=== PATIENT | female | born 1935 | race Asian ===

== ENCOUNTER 2018-10-12 16:38 | Inpatient (IN) | payer BC ==
[~2018-10-12] VITALS: Ht 157.5 cm; Wt 69.2 kg
[2018-10-12] MEDS ORDERED: IPRATROPIUM (NEB) 0.5 MG/2.5 ML AMP INH STA (19:09)
[2018-10-12] MEDS ORDERED: predniSONE 20 MG TAB PO STA (19:09)
[2018-10-12] MEDS ORDERED: ALBUTEROL 0.5% (NEB) 2.5 MG/0.5 ML AMP INH STA (19:09)
--- NOTE | 2018-10-12 19:56 | ERD ---
ER Documentation Chief Complaint Chief Complaint Cough X 1 month HPI 82-year-old female presents to the emergency room complaining of cough for approximately 1 month. We are using an automotive parts interpreter with family and nursing. Patient describes occasional shortness of breath and cough that is usually worse at night. No fevers chills or hemoptysis or hematemesis. Patient was found to have new onset atrial fibrillation with rate control. This is a new diagnosis for her. She denies any chest pain or pressure, no pleuritic pain. ROS All systems reviewed and are negative except as per history of present illness. Allergies Allergies: Coded Allergies: lisinopril (Verified Allergy, Unknown, 10/12/18) PMhx/Soc Medical and Surgical Hx: pt denies Medical Hx, pt denies Surgical Hx Hx Alcohol Use: No Hx Substance Use: No Hx Tobacco Use: No Smoking Status: Never smoker FmHx Family History: No diabetes Physical Exam Vitals Vital Signs Date Temp Pulse Resp B/P (MAP) Pulse Ox O2 O2 Flow FiO2 Time Delivery Rate 10/12/18 70 20 95 21 19:33 10/12/18 99.4 63 18 119/56 96 16:46 (77) Physical Exam General: Well developed, well nourished, no acute distress Head: Normocephalic, atraumatic. Eyes: Pupils equally reactive, EOM intact ENT: Moist mucous membranes Neck: Supple, no lymphadenopathy Respiratory: Scant wheezing, no distress Cardiovascular: irreg irreg, rate controlled, no murmurs, rubs, or gallops Abdominal: Soft, non-tender, non-distended, no peritoneal signs : Deferred MSK: No edema, no unilateral swelling, 5/5 strength Neurologic: Alert and oriented, moving all extremities, normal speech, no focal weakness, no cerebellar signs Skin: No rash Psych: Normal mood Result Diagram: 10/12/18195310/12/181953 Results 24 hrs Laboratory Tests Test 10/12/18 19:54 10/12/18 19:57 White Blood Count 5.2 10^3/ul Red Blood Count 4.72 10^6/ul Hemoglobin 14.4 g/dl Hematocrit 44.2 % Mean Corpuscular Volume 93.6 fl Mean Corpuscular Hemoglobin 30.5 pg Mean Corpuscular Hemoglobin Concent 32.6 g/dl Red Cell Distribution Width 14.4 % Platelet Count 199 10^3/UL Mean Platelet Volume 11.1 fl Immature Granulocytes % 0.200 % Segmented Neutrophils % (Manual) 70 % Band Neutrophils % (Manual) 1 % Lymphocytes % (Manual) 12 % Reactive Lymphocytes % (Manual) 3 % Monocytes % (Manual) 12 % Eosinophils % (Manual) 1 % Metamyelocytes % (manual) 1 % Nucleated Red Blood Cells % 0.0 /100WBC Immature Granulocytes # 0.010 10^3/ul Neutrophils # (Manual) 3.6 10^3/ul Band Neutrophils # 0.0 10^3/ul Lymphocytes (Manual) 0.6 10^3/ul Reactive Lymphocytes # 0.1 10^3/ul Monocytes # (Manual) 0.6 10^3/ul Metamyelocytes # 0.0 10^3/ul Platelet Estimate NORMAL Polychromasia 1+ Poikilocytosis 1+ Sodium Level 141 mmol/L Potassium Level 3.8 mmol/L Chloride Level 103 mmol/L Carbon Dioxide Level 28 mmol/L Anion Gap 10 Blood Urea Nitrogen 11 mg/dl Creatinine 0.62 mg/dl Est Glomerular Filtrat Rate mL/min mL/min Glucose Level 96 mg/dl Calcium Level 9.7 mg/dl Troponin I < 0.012 ng/ml Prothrombin Time 13.8 Sec Prothrombin Time Ratio 1.1 INR International Normalized Ratio 1.05 Activated Partial Thromboplast Time 33.5 Sec B-Type Natriuretic Peptide 727 PG/ML Thyroid Stimulating Hormone (TSH) 2.140 MIU/L Free Thyroxine Index 2.79 ug/ml Thyroxine (T4) 10.0 ug/dl Triiodothyronine (T3) Uptake 27.9 % Current Medications Medications Dose Sig/Shivam Start Time Status Last (Trade) Ordered Route PRN Stop Time Admin Dose Reason Admin Albuterol 10 mg ONCE STAT 10/12/18 DC 10/12/18 (Proventil INH 19:09 19:33 0.5% (Neb)) 10/12/18 19:13 Ipratropium 1 mg ONCE STAT 10/12/18 DC 10/12/18 [place] INH 19:09 19:33 (Atrovent 10/12/18 19:13 0.02% (Neb)) Prednisone 60 mg ONCE STAT 10/12/18 DC 10/12/18 (Prednisone) PO 19: 19:25 3/12/19 19:13 Ondansetron 4 mg ER BRIDGE 10/12/18 HCl (Zofran PRN IV 21:00 Inj) NAUSEA/VOMITI 10/13/18 20:59 NG 650 mg ER BRIDGE 10/12/18 Acetaminophen PRN PO 21:00 (Tylenol .MILD PAIN 10/13/18 20:59 Tab) 1-3 OR TEMP Procedures/MDM EKG, MONITORS, & DIAGNOSTIC IMAGING: EKG: I reviewed and interpreted a 12-lead EKG. Rhythm: A fib rate controlled ST Changes: No contiguous ST segment elevations T waves: No contiguous T wave inversions Impression: Abnormal EKG CXR IMPRESSION: 1. Small right pleural effusion. 2. Cardiomegaly and atherosclerotic calcifications in the tortuous thoracic aorta. 3. Medial right apical bronchiectasis. 4. Mild atelectasis at the left lung base. 5. Otherwise, no evidence for active cardiopulmonary disease. RPTAT: UU LAB INTERPRETATION: I reviewed the laboratory testing and it shows mild BNP elevation but negative troponin, normal thyroid MEDICAL DECISION MAKING: Patient presents with cough for approximately 1 month with new onset A. fib. Rate controlled. The patient is high risk and warrants further conversation about anticoagulation. Further investigation for etiology is appropriate including laboratory testing, cardiac ischemia screening. Inpatient hospitalization for further workup, echocardiogram and cardiology consultation would be appropriate. ER COURSE: * The patient remains rate controlled. Influenza testing negative. The patient will be admitted for further management of new onset A. fib. * No evidence of infectious process at this time CONSULTATION: [None] DISPOSITION PLAN: Telemetry admission for management of new onset A. fib Accepting care team and consultations: I discussed the current laboratory data, diagnostic imaging and emergency care provided. Admitting team: Dr. Mckeon Admitting team indication: Insurance directed Departure Diagnosis: Primary Impression: New onset atrial fibrillation Condition: Stable ROXIE MALAVE MD Oct 12, 2018 19:56
[2018-10-12] MEDS ORDERED: ACETAMINOPHEN 325 MG TAB PO PRN (21:00)
[2018-10-12] MEDS ORDERED: ONDANSETRON 4 MG INJ IV PRN (21:00)
[2018-10-13] VITALS (11 sets, daily range): BP systolic 107–134; BP diastolic 56–82; PULSE 60–94; RESP 16–22; Ht 157.5 cm; Wt 69.2 kg
[2018-10-13] MEDS ORDERED: FLUT1BLS INHALATION (00:11)
[2018-10-13] MEDS ORDERED: ALBU2.5V3 NEB (00:11)
[2018-10-13] MEDS ORDERED: LOSA25TA12 PO (00:11)
[2018-10-13] MEDS ORDERED: APIX5TAB PO (00:11)
[2018-10-13] MEDS ORDERED: FURO20TA3 PO (00:11)
[2018-10-13] MEDS ORDERED: DILT180C76 PO (00:11)
[2018-10-13] MEDS ORDERED: ALBU18HF INHALATION (00:11)
[2018-10-13] MEDS ORDERED: ATOR40TA68 PO (00:11)
[2018-10-13] MEDS ORDERED: ASCO500C7 PO (00:13)
[2018-10-13] MEDS ORDERED: MULT-853 PO (00:13)
[2018-10-13] MEDS ORDERED: OMEG-135 PO (00:13)
[2018-10-13] MEDS ORDERED: ALBUTEROL/IPRATROPIUM (NEB) 3 ML AMP HHN PRN (01:30)
[2018-10-13] MEDS ORDERED: NACL 0.9% 3 ML SYG IV SCH (01:30)
[2018-10-13] MEDS ORDERED: ACETAMINOPHEN 325 MG TAB PO PRN (01:30)
[2018-10-13] MEDS ORDERED: ONDANSETRON 4 MG INJ IV PRN (01:30)
[2018-10-13] MEDS ORDERED: ZOLPIDEM 5 MG TAB PO PRN (02:00)
[2018-10-13] MEDS: APIXABAN 5 MG TABLET PO SCH ×3 (02:23→21:34)
--- NOTE | 2018-10-13 06:08 | HP ---
Date/Time of Note Date/Time of Note DATE: 10/13/18 TIME: 06:04 Assessment/Plan VTE Prophylaxis Pharmacological prophylaxis: heparin Lines/Catheters IV Catheter Type (from Nrsg): Saline Lock Assessment/Plan Assessment/Plan 1. Shortness of breath and cough, likely secondary to the known pulmonary fibrosis -Supplemental oxygen, bronchodilators, steroid -Chest CT -Pulmonary consult 2. Atrial fibrillation: Rate controlled -Continue diltiazem and apixaban 3. Hypertension: BP within goal 4. History of CVA: Continue statin. Patient on a blood thinner, therefore no antiplatelet because of increased risk of bleeding 5. Dyslipidemia: Continue statin Result Diagram: 10/12/18195310/12/181953 Results 24hrs Laboratory Tests Test 10/12/18 19:54 10/12/18 19:57 White Blood Count 5.2 Red Blood Count 4.72 Hemoglobin 14.4 Hematocrit 44.2 Mean Corpuscular Volume 93.6 Mean Corpuscular Hemoglobin 30.5 Mean Corpuscular Hemoglobin Concent 32.6 Red Cell Distribution Width 14.4 Platelet Count 199 Mean Platelet Volume 11.1 H Immature Granulocytes % 0.200 Segmented Neutrophils % (Manual) 70 Band Neutrophils % (Manual) 1 Lymphocytes % (Manual) 12 L Reactive Lymphocytes % (Manual) 3 H Monocytes % (Manual) 12 H Eosinophils % (Manual) 1 Metamyelocytes % (manual) 1 H Nucleated Red Blood Cells % 0.0 Immature Granulocytes # 0.010 Neutrophils # (Manual) 3.6 Band Neutrophils # 0.0 Lymphocytes (Manual) 0.6 L Reactive Lymphocytes # 0.1 H Monocytes # (Manual) 0.6 Metamyelocytes # 0.0 Platelet Estimate NORMAL Polychromasia 1+ Poikilocytosis 1+ Sodium Level 141 Potassium Level 3.8 Chloride Level 103 Carbon Dioxide Level 28 Anion Gap 10 Blood Urea Nitrogen 11 Creatinine 0.62 Est Glomerular Filtrat Rate mL/min Glucose Level 96 Calcium Level 9.7 Troponin I < 0.012 Prothrombin Time 13.8 Prothrombin Time Ratio 1.1 INR International Normalized Ratio 1.05 Activated Partial Thromboplast Time 33.5 B-Type Natriuretic Peptide 727 H Thyroid Stimulating Hormone (TSH) 2.140 Free Thyroxine Index 2.79 Thyroxine (T4) 10.0 Triiodothyronine (T3) Uptake 27.9 HPI/ROS Admit Date/Time Admit Date/Time Oct 12, 2018 at 20:52 Hx of Present Illness This is an 82-year-old female with a history of hypertension, dyslipidemia, CVA, atrial fibrillation, ?pulmonary fibrosis who was brought to the ER for shortness of breath and cough. Symptom has intermittently been going on for the last several weeks. Cough has been dry. Denied chest pain. Patient was taken to the urgent care where chest x-ray was done and was told she has " fluids in her lungs". When she presented to ER, vitals were stable. No history of atrial fibrillation. Basic labs was in acceptable range. BNP around 700. Chest x-ray shows the following. 1. Small right pleural effusion. 2. Cardiomegaly and atherosclerotic calcifications in the tortuous thoracic aorta. 3. Medial right apical bronchiectasis. 4. Mild atelectasis at the left lung base. 5. Otherwise, no evidence for active cardiopulmonary disease. PMH/Family/Social Past Medical History Medical History: other (See HPI) Medications Current Medications Ondansetron HCl (Zofran Inj) 4 mg ER BRIDGE PRN IV NAUSEA/VOMITING; Start 10/12/18 at 21:00; Stop 10/13/18 at 20:59 Acetaminophen (Tylenol Tab) 650 mg ER BRIDGE PRN PO .MILD PAIN 1-3 OR TEMP; Start 10/12/18 at 21:00; Stop 10/13/18 at 20:59 IV Flush (NS 3 ml) 3 ml PER PROTOCOL IV ; Start 10/13/18 at 01:30 Ondansetron HCl (Zofran Inj) 4 mg Q6H PRN IV NAUSEA/VOMITING; Start 10/13/18 at 01:30 Methylprednisolone Sodium Succinate (Solu-Medrol) 60 mg DAILY IV ; Start 10/13/18 at 09:00 Acetaminophen (Tylenol Tab) 650 mg Q6H PRN PO .PAIN 1-3 OR TEMP; Start 10/13/18 at 01:30 Albuterol/ Ipratropium (Duoneb) 3 ml Q2H RESP THERAPY PRN HHN SHORTNESS OF BREATH; Start 10/13/18 at 01:30 Apixaban (Eliquis) 5 mg BID PO Last administered on 10/13/18at 02:23; Admin Dose 5 MG; Start 10/13/18 at 02:16 Ascorbic Acid (Vitamin C) 500 mg DAILY PO ; Start 10/13/18 at 09:00 Atorvastatin Calcium (Lipitor) 40 mg DAILY PO ; Start 10/13/18 at 09:00 Fluticasone/ Vilanterol (Breo Ellipta 200-25 Mcg Inh) 1 inh DAILY INH ; Start 10/13/18 at 09:00 Furosemide (Lasix) 20 mg DAILY PO ; Start 10/13/18 at 09:00 Losartan Potassium (Cozaar) 100 mg DAILY PO ; Start 10/13/18 at 09:00 Diltiazem HCl (Cardizem Cd) 180 mg DAILY PO ; Start 10/13/18 at 09:00 Coded Allergies: lisinopril (Verified Allergy, Unknown, 10/12/18) Past Surgical History Past Surgical Hx: other (See HPI) Family History Significant Family History: no pertinent family hx Social History Alcohol Use: none Smoking Status: Never smoker Drug Use: none Exam/Review of Systems Vital Signs Vitals Vital Signs Date Temp Pulse Resp B/P (MAP) Pulse Ox O2 O2 Flow FiO2 Time Delivery Rate 10/13/18 98.0 83 16 111/62 98 Room Air 04:14 (78) 10/12/18 21 19:33 Intake and Output 10/12/18 10/12/18 10/13/18 1414:59 22:59 06:59 IntakeIntake Total 200 ml BalanceBalance 200 ml Exam Constitutional: other (No acute distress) Head: normocephalic, atraumatic Eyes: PERRL Respiratory: other (Decreased breath sounds at the base bilaterally. Minimal wheezing) Cardiovascular: regular rate and rhythm, nl pulses Gastrointestinal: soft Extremities: normal pulses BIBIANA MARTINEZ MD Oct 13, 2018 06:08
[2018-10-13] MEDS: ATORVASTATIN 40 MG TAB PO SCH (08:10)
[2018-10-13] MEDS: FLUTICASONE/VILANTEROL 200-25 INH DEVICE INH SCH (08:10)
[2018-10-13] MEDS: ASCORBIC ACID 500 MG TAB PO SCH (08:11)
[2018-10-13] MEDS: DILTIAZEM (CD) 180 MG CAP PO SCH (08:11)
[2018-10-13] MEDS: LOSARTAN 50 MG TAB PO SCH (08:11)
[2018-10-13] MEDS: FUROSEMIDE 20 MG TAB PO SCH (08:11)
[2018-10-13] MEDS ORDERED: METHYLPREDNISOLONE 125 MG INJ IV SCH ×2 (09:00→17:00)
[2018-10-13] MEDS ORDERED: HEPARIN 5,000 UNIT/1 ML VIAL SC SCH (09:00)
--- NOTE | 2018-10-13 11:05 | CONS ---
Assessment/Plan Assessment/Plan Assessment/Plan (Daily) Chest x-ray showing right upper lobe fibrotic changes. Assessment recommendations; 1. Patient admitted with flareup of chronic asthma with acute bronchitis likely dust exposure induced. 2. Remote history of pulmonary tuberculosis without any evidence of reactivation. 3. Chronic atrial fibrillation. Discontinue Solu-Medrol at current dosing. Start 40 mg every 8 hours. Add oral Zithromax to be used as a Z-Kurtis. Changed DuoNeb from as needed to every 6 hours scheduled. Continue as needed dosing every 4 hours. Consultation Date/Type/Reason Admit Date/Time Oct 12, 2018 at 20:52 Date of Consultation: Oct 13, 2018 Type of Consult Pulmonary Pulmonary consult requested for evaluation of asthma exacerbation with alma delia robert. The patient is a pleasant 82-year-old [place] lady who came into the hospital with a month long history of coughing wheezing shortness of breath with very scant sputum production. The patient went to [facility] in late August and returned in mid September and according to the patient's daughter she had significant dust exposure there which triggered her coughing episodes the patient has had several rounds of outpatient antibiotic treatment without much long lasting benefit. Patient also has been on home nebulizer without any significant relief either. Patient however denies any fever, chest pain, hemoptysis, denies any sputum production. Complains of episodes of severe coughing with wheezing. Denies any shortness of breath at rest. By the time I saw her in the room, patient appe ared comfortable and was completely awake and alert. Also possible to give history by herself. Past medical history; 1. History of questionable asthma. 2. History of pulmonary tuberculosis at age 27. Status post treatment. 3. History of chronic atrial fibrillation. 4. Long-term anticoagulation. Medications; reviewed. Allergies; lisinopril. Social history; never smoked, no history of alcohol drug abuse. Family history; she is a . Has 2 children. 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 Review of systems; denies any headache, sinus symptoms. Any visual changes. Any sore throat. Denies any chest pain. Complains of coughing, wheezing, without any sputum production or hemoptysis. Denies any fever, chills. Any body aches or myalgias. Any weight loss. Denies any GI or urinary symptoms. Denies any edema orthopnea. Any skin changes. Any weight loss. Any night sweats. General exam; elderly lady, awake alert, currently in no distress. Date/Time of Note DATE: 10/13/18 TIME: 11:01 Past Medical History Medical History: other (See HPI) Home Meds Reported Medications Ascorbic Acid* (Vitamin C*) 500 Mg Capsule.sa, 500 MG PO DAILY, CAP 10/13/18 Multivits-Min/Iron/FA/Lutein (Centrum Silver Women Tablet) 1 Each Tablet, 1 EACH PO DAILY, TAB 10/13/18 [place]-3 Fatty Acids/Fish Oil (Fish Oil 1,000 mg Capsule) 1 Each Capsule, 1 EACH PO, CAP 10/13/18 Albuterol Sulfate* (Albuterol Sulfate* Neb) 0.083%-3 Ml Neb, 1.25 MG NEB Q3H PRN for WHEEZING AND SOB, #30 VIAL 10/13/18 Fluticasone/Vilanterol (Breo Ellipta 200-25 Mcg INH) 1 Each Blst.w.dev, 1 PUFF INHALATION DAILY, #1 INHALER 10/13/18 Apixaban* (Eliquis*) 5 Mg Tablet, 5 MG PO BID for 30 Days, #60 TAKE 1 TABLET BY MOUTH TWICE A DAY 10/13/18 Atorvastatin* (Atorvastatin*) 40 Mg Tablet, 40 MG PO DAILY for 30 Days, #30 TAKE 1 TABLET BY MOUTH EVERY DAY 10/13/18 Losartan Potassium* (Losartan Potassium*) 25 Mg Tablet, 100 MG PO DAILY for 30 Days, #30 TAKE 1 TABLET BY MOUTH EVERY DAY 10/13/18 Furosemide* (Furosemide*) 20 Mg Tablet, 20 MG PO DAILY for 30 Days, #30 10/13/18 Diltiazem Hcl (Diltiazem Er) 180 Mg Capsule.sa, 180 MG PO DAILY TAKE ONE CAPSULE BY MOUTH DAILY 10/13/18 Albuterol Sulfate* (Ventolin HFA*) 18 Gm Hfa.aer.ad, 2 PUFF INHALATION Q4H, #1 INHALER 10/13/18 Medications Current Medications Ondansetron HCl (Zofran Inj) 4 mg ER BRIDGE PRN IV NAUSEA/VOMITING; Start 10/12/18 at 21:00; Stop 10/13/18 at 20:59 Acetaminophen (Tylenol Tab) 650 mg ER BRIDGE PRN PO .MILD PAIN 1-3 OR TEMP; Start 10/12/18 at 21:00; Stop 10/13/18 at 20:59 IV Flush (NS 3 ml) 3 ml PER PROTOCOL IV ; Start 10/13/18 at 01:30 Ondansetron HCl (Zofran Inj) 4 mg Q6H PRN IV NAUSEA/VOMITING; Start 10/13/18 at 01:30 Acetaminophen (Tylenol Tab) 650 mg Q6H PRN PO .PAIN 1-3 OR TEMP; Start 10/13/18 at 01:30 Albuterol/ Ipratropium (Duoneb) 3 ml Q2H RESP THERAPY PRN HHN SHORTNESS OF BREATH; Start 10/13/18 at 01:30 Apixaban (Eliquis) 5 mg BID PO Last administered on 10/13/18at 10:40; Admin Dose 5 MG; Start 10/13/18 at 02:16 Ascorbic Acid (Vitamin C) 500 mg DAILY PO Last administered on 10/13/18 08:11; Admin Dose 500 MG; Start 10/13/18 at 09:00 Atorvastatin Calcium (Lipitor) 40 mg DAILY PO Last administered on 10/13/18 08:10; Admin Dose 40 MG; Start 10/13/18 at 09:00 Fluticasone/ Vilanterol (Breo Ellipta 200-25 Mcg Inh) 1 inh DAILY INH Last administered on 10/13/18 08:10; Admin Dose 1 INH; Start 10/13/18 at 09:00 Furosemide (Lasix) 20 mg DAILY PO Last administered on 10/13/18 08:11; Admin Dose 20 MG; Start 10/13/18 at 09:00 Losartan Potassium (Cozaar) 100 mg DAILY PO Last administered on 10/13/18 08:11; Admin Dose 100 MG; Start 10/13/18 at 09:00 Diltiazem HCl (Cardizem Cd) 180 mg DAILY PO Last administered on 10/13/18 08:11; Admin Dose 180 MG; Start 10/13/18 at 09:00 Albuterol/ Ipratropium (Duoneb) 3 ml Q4HWA RESP THERAPY HHN ; Start 10/13/18 at 13:00; Status UNV Albuterol/ Ipratropium (Duoneb) 3 ml Q6H RESP THERAPY HHN ; Start 10/13/18 at 14:00; Status UNV Methylprednisolone Sodium Succinate (Solu-Medrol) 40 mg Q8 IV ; Start 10/13/18 at 14:00; Status UNV Allergies: Coded Allergies: lisinopril (Verified Allergy, Unknown, 10/12/18) Past Surgical History Past Surgical Hx: other (See HPI) Social History Alcohol Use: none Smoking Status: Never smoker Drug Use: none Exam/Review of Systems Exam Vitals Vital Signs Date Temp Pulse Resp B/P (MAP) Pulse Ox O2 O2 Flow FiO2 Time Delivery Rate 10/13/18 94 08:01 10/13/18 97.0 22 134/82 96 Room Air 07:23 (99) 10/12/18 21 19:33 Intake and Output 10/12/18 10/12/18 10/13/18 1515:00 23:00 07:00 IntakeIntake Total 200 ml BalanceBalance 200 ml Exam HEENT exam; supple neck, no JVD. No lymphadenopathy. Midline trachea. No thyromegaly. Patient has dentures. Chest exam; mild bilateral wheezing. S1-S2 audible, no murmurs. Irregular rhythm. Abdomen exam; soft, nontender. No organomegaly. Bowel sounds audible. Extremity exam; peripheral edema clubbing. PEC[employer] CLE[employer]ER exam; no focal deficit. Results Result Diagram: 10/13/18 0507 10/13/18 0507 Results 24hrs Laboratory Tests Test 10/12/18 19:54 10/12/18 19:57 10/13/18 05:07 White Blood Count 5.2 4.1 #L Red Blood Count 4.72 4.55 Hemoglobin 14.4 13.8 Hematocrit 44.2 42.6 Mean Corpuscular Volume 93.6 93.6 Mean Corpuscular Hemoglobin 30.5 30.3 Mean Corpuscular Hemoglobin Concent 32.6 32.4 Red Cell Distribution Width 14.4 14.3 Platelet Count 199 196 Mean Platelet Volume 11.1 H 11.4 H Immature Granulocytes % 0.200 0.200 Segmented Neutrophils % (Manual) 70 Band Neutrophils % (Manual) 1 Lymphocytes % (Manual) 12 L Reactive Lymphocytes % (Manual) 3 H Monocytes % (Manual) 12 H Eosinophils % (Manual) 1 Metamyelocytes % (manual) 1 H Nucleated Red Blood Cells % 0.0 0.0 Immature Granulocytes # 0.010 0.010 Neutrophils # (Manual) 3.6 Band Neutrophils # 0.0 Lymphocytes (Manual) 0.6 L Reactive Lymphocytes # 0.1 H Monocytes # (Manual) 0.6 Metamyelocytes # 0.0 Platelet Estimate NORMAL Polychromasia 1+ Poikilocytosis 1+ Sodium Level 141 142 Potassium Level 3.8 4.1 Chloride Level 103 106 Carbon Dioxide Level 28 26 Anion Gap 10 10 Blood Urea Nitrogen 11 12 Creatinine 0.62 0.60 Est Glomerular Filtrat Rate mL/min Glucose Level 96 115 Calcium Level 9.7 9.8 Troponin I < 0.012 Prothrombin Time 13.8 Prothrombin Time Ratio 1.1 INR International Normalized Ratio 1.05 Activated Partial Thromboplast Time 33.5 B-Type Natriuretic Peptide 727 H Thyroid Stimulating Hormone (TSH) 2.140 Free Thyroxine Index 2.79 Thyroxine (T4) 10.0 Triiodothyronine (T3) Uptake 27.9 Neutrophils % 90.8 H Lymphocytes % 7.1 L Monocytes % 1.7 Eosinophils % 0.0 Basophils % 0.2 Neutrophils # 3.7 Lymphocytes # 0.3 L Monocytes # 0.1 L Eosinophils # 0.0 Basophils # 0.0 Nucleated Red Blood Cells # 0.0 Total Bilirubin 0.9 Direct Bilirubin 0.00 Indirect Bilirubin 0.9 Aspartate Amino Transf (AST/SGOT) 25 Alanine Aminotransferase (ALT/SGPT) 20 Alkaline Phosphatase 100 Total Protein 6.8 Albumin 4.0 Globulin 2.80 Albumin/Globulin Ratio 1.42 Medications Medication Current Medications Ondansetron HCl (Zofran Inj) 4 mg ER BRIDGE PRN IV NAUSEA/VOMITING; Start 10/12/18 at 21:00; Stop 10/13/18 at 20:59 Acetaminophen (Tylenol Tab) 650 mg ER BRIDGE PRN PO .MILD PAIN 1-3 OR TEMP; Start 10/12/18 at 21:00; Stop 10/13/18 at 20:59 IV Flush (NS 3 ml) 3 ml PER PROTOCOL IV ; Start 10/13/18 at 01:30 Ondansetron HCl (Zofran Inj) 4 mg Q6H PRN IV NAUSEA/VOMITING; Start 10/13/18 at 01:30 Acetaminophen (Tylenol Tab) 650 mg Q6H PRN PO .PAIN 1-3 OR TEMP; Start 10/13/18 at 01:30 Albuterol/ Ipratropium (Duoneb) 3 ml Q2H RESP THERAPY PRN HHN SHORTNESS OF BREATH; Start 10/13/18 at 01:30 Apixaban (Eliquis) 5 mg BID PO Last administered on 10/13/18 10:40; Admin Dose 5 MG; Start 10/13/18 at 02:16 Ascorbic Acid (Vitamin C) 500 mg DAILY PO Last administered on 10/13/18 08:11; Admin Dose 500 MG; Start 10/13/18 at 09:00 Atorvastatin Calcium (Lipitor) 40 mg DAILY PO Last administered on 10/13/18 08:10; Admin Dose 40 MG; Start 10/13/18 at 09:00 Fluticasone/ Vilanterol (Breo Ellipta 200-25 Mcg Inh) 1 inh DAILY INH Last administered on 10/13/18 08:10; Admin Dose 1 INH; Start 10/13/18 at 09:00 Furosemide (Lasix) 20 mg DAILY PO Last administered on 10/13/18 08:11; Admin Dose 20 MG; Start 10/13/18 at 09:00 Losartan Potassium (Cozaar) 100 mg DAILY PO Last administered on 10/13/18 08:11; Admin Dose 100 MG; Start 10/13/18 at 09:00 Diltiazem HCl (Cardizem Cd) 180 mg DAILY PO Last administered on 10/13/18 08:11; Admin Dose 180 MG; Start 10/13/18 at 09:00 Albuterol/ Ipratropium (Duoneb) 3 ml Q4HWA RESP THERAPY HHN ; Start 10/13/18 at 13:00; Status UNV Albuterol/ Ipratropium (Duoneb) 3 ml Q6H RESP THERAPY HHN ; Start 10/13/18 at 14:00; Status UNV Methylprednisolone Sodium Succinate (Solu-Medrol) 40 mg Q8 IV ; Start 10/13/18 at 14:00; Status UNV RAJINDER RUTHERFORD Oct 13, 2018 11:05
--- NOTE | 2018-10-13 11:19 | PN ---
DATE: 10/13/2018 SUBJECTIVE: The patient is still having some mild shortness of breath symptoms, seen by pulmonary te am earlier today. OBJECTIVE: VITAL SIGNS: Stable. GENERAL: The patient is lying in bed, family members at the bedside. No acute distress. HEENT: Pupils equal, round, reactive to light, somewhat intact. NECK: Supple, no thyromegaly. LUNGS: Positive expiratory wheezes heard, left greater than right. CARDIOVASCULAR: S1, S2 heard. No rubs or gallops. ABDOMEN: Soft, nontender, nondistended. Normal bowel sounds. No rebound or guarding. MUSCULOSKELETAL: No lower extremity edema bilaterally. NEUROLOGIC: No focal deficits. LABORATORY DATA: Unremarkable. Comprehensive metabolic panel is normal. BNP is 727. IMAGING STUDIES: Chest x-ray showed small right pleural effusion, cardiomegaly and atherosclerotic c alcifications and tortuous thoracic aorta, medial right apical bronchiectasis, mild atelectasis at le ft lung base, otherwise no evidence of any active cardiopulmonary disease. ASSESSMENT AND PLAN: An 82-year-old female coming in with shortness of breath and cough with a prior history of TB many years ago and pulmonary fibrosis. Subsequently, nonsmoking related COPD per fami ly. 1. Shortness of breath and cough. Again, the patient is likely secondary to combination of mild CHILD NURSE D exacerbation, also possible secondary to the patient's possible history of pulmonary fibrosis. Exp iratory wheezes are heard on the exam. The patient Is to continue breathing treatments to q.4h. arou nd the clock, IV steroids, we will increase to 60 mg IV q.8h. Follow up pulmonary recommendations. Consider low-dose antibiotics as well, DuoNeb q.4 hours around the clock for now. Consider PT consul t. 2. Atrial fibrillation, rate controlled. Continue diltiazem and apixaban. 3. Hypertension. Blood pressure is stable. Continue current cardiac medications. 4. History of prior stroke. No present signs of any focal deficits. Continue statin. Also, we zabrina l get PT consult. 5. History of high cholesterol, followup lipid panel. Continue statin. 6. Deep vein thrombosis prophylaxis. Again, she is on Eliquis. Dictated By: IKMMIE OMALLEY Conf#: [id number] DID#: [id number] CC: KIMMIE JOHNSON; RUMA MEEHAN MD; BIBIANA MARTINEZ MD;*End*
--- NOTE | 2018-10-13 12:32 | CONS ---
Assessment/Plan Assessment/Plan Assessment/Plan (Daily) Shortness of breath secondary to acute exacerbation of pulmonary fibrosis. Patient is very stable at this time with receiving oxygen and pulmonary toilet and HHN. History of atrial fibrillation controlled Hypertension prior history of CVA She is doing well Overall prognosis is guarded secondary to pulmonary fibrosis as far as I can gather release her second episode of exacerbation of pulmonary fibrosis within the last couple of months. As well as past medical history of pulmonary emboli. Consultation Date/Type/Reason Admit Date/Time Oct 12, 2018 at 20:52 Date/Time of Note DATE: 10/13/18 TIME: 12:29 This is a 82-year-old female who presented to [facility] with increasing shortness of breath. Patient looks younger than her stated age apparently has history of pulmonary fibrosis was brought in for increasing shor tness of breath for a few days prior to his presentation. States she has cough but no purulent sputum denies chest pain PND orthopnea pitting edema. She was initially evaluated at an outside facility and told that she needed to come to the emergency room.. Here she was small have a small right-sided pleural effusion cardiomegaly right apical bronchiectasis, mild atelectasis of the left lung base but otherwise no evidence of cardiopulmonary disease. Right now patient is very stable but denies chest pain shortness of breath she is able to speak in comorbid medical problems in the past include history of hypertension dyslipidemia CVA atrial fibrillation. Subjective hx not possible: pt non-verbal Constitutional: No no complaints, No improved, No chills, No diaphoresis, No disoriented, No febrile, No poor po, No requiring IVF, No requiring O2, No other Eyes: No no complaints, No pain, No discharge, No redness, No visual change, No other Respiratory: other (Refer to history of present illness) Cardiovascular: No no complaints, No chest pain, No edema, No lightheadedness, No orthopenea, No palpitations, No paroxysmal nocturnal dyspnea, No other Gastrointestinal: No no complaints, No pain, No blood, No constipation, No decreased appetite, No diarrhea, No flatus, No nausea, No passing stool, No vomiting, No other Neurologic: no complaints Endocrine: no complaints Lymphatic: no complaints Past Medical History Medical History: congestive heart failure, high cholesterol, hypertension, other (See HPI) Home Meds Reported Medications Ascorbic Acid* (Vitamin C*) 500 Mg Capsule.sa, 500 MG PO DAILY, CAP 10/13/18 Multivits-Min/Iron/FA/Lutein (Centrum Silver Women Tablet) 1 Each Tablet, 1 EACH PO DAILY, TAB 10/13/18 [place]-3 Fatty Acids/Fish Oil (Fish Oil 1,000 mg Capsule) 1 Each Capsule, 1 EACH PO, CAP 10/13/18 Albuterol Sulfate* (Albuterol Sulfate* Neb) 0.083%-3 Ml Neb, 1.25 MG NEB Q3H PRN for WHEEZING AND SOB, #30 VIAL 10/13/18 Fluticasone/Vilanterol (Breo Ellipta 200-25 Mcg INH) 1 Each Blst.w.dev, 1 PUFF INHALATION DAILY, #1 INHALER 10/13/18 Apixaban* (Eliquis*) 5 Mg Tablet, 5 MG PO BID for 30 Days, #60 TAKE 1 TABLET BY MOUTH TWICE A DAY 10/13/18 Atorvastatin* (Atorvastatin*) 40 Mg Tablet, 40 MG PO DAILY for 30 Days, #30 TAKE 1 TABLET BY MOUTH EVERY DAY 10/13/18 Losartan Potassium* (Losartan Potassium*) 25 Mg Tablet, 100 MG PO DAILY for 30 Days, #30 TAKE 1 TABLET BY MOUTH EVERY DAY 10/13/18 Furosemide* (Furosemide*) 20 Mg Tablet, 20 MG PO DAILY for 30 Days, #30 10/13/18 Diltiazem Hcl (Diltiazem Er) 180 Mg Capsule.sa, 180 MG PO DAILY TAKE ONE CAPSULE BY MOUTH DAILY 10/13/18 Albuterol Sulfate* (Ventolin HFA*) 18 Gm Hfa.aer.ad, 2 PUFF INHALATION Q4H, #1 INHALER 10/13/18 Medications Current Medications Ondansetron HCl (Zofran Inj) 4 mg ER BRIDGE PRN IV NAUSEA/VOMITING; Start 10/12/18 at 21:00; Stop 10/13/18 at 20:59 Acetaminophen (Tylenol Tab) 650 mg ER BRIDGE PRN PO .MILD PAIN 1-3 OR TEMP; Start 10/12/18 at 21:00; Stop 10/13/18 at 20:59 IV Flush (NS 3 ml) 3 ml PER PROTOCOL IV ; Start 10/13/18 at 01:30 Ondansetron HCl (Zofran Inj) 4 mg Q6H PRN IV NAUSEA/VOMITING; Start 10/13/18 at 01:30 Acetaminophen (Tylenol Tab) 650 mg Q6H PRN PO .PAIN 1-3 OR TEMP; Start 10/13/18 at 01:30 Albuterol/ Ipratropium (Duoneb) 3 ml Q2H RESP THERAPY PRN HHN SHORTNESS OF BREATH; Start 10/13/18 at 01:30 Apixaban (Eliquis) 5 mg BID PO Last administered on 10/13/18at 10:40; Admin Dose 5 MG; Start 10/13/18 at 02:16 Ascorbic Acid (Vitamin C) 500 mg DAILY PO Last administered on 10/13/18 08:11; Admin Dose 500 MG; Start 10/13/18 at 09:00 Atorvastatin Calcium (Lipitor) 40 mg DAILY PO Last administered on 10/13/18at 08:10; Admin Dose 40 MG; Start 10/13/18 at 09:00 Fluticasone/ Vilanterol (Breo Ellipta 200-25 Mcg Inh) 1 inh DAILY INH Last administered on 10/13/18at 08:10; Admin Dose 1 INH; Start 10/13/18 at 09:00 Furosemide (Lasix) 20 mg DAILY PO Last administered on 10/13/18 08:11; Admin Dose 20 MG; Start 10/13/18 at 09:00 Losartan Potassium (Cozaar) 100 mg DAILY PO Last administered on 10/13/18 08:11; Admin Dose 100 MG; Start 10/13/18 at 09:00 Diltiazem HCl (Cardizem Cd) 180 mg DAILY PO Last administered on 10/13/18at 08:11; Admin Dose 180 MG; Start 10/13/18 at 09:00 Albuterol/ Ipratropium (Duoneb) 3 ml Q6H RESP THERAPY HHN ; Start 10/13/18 at 14:00 Methylprednisolone Sodium Succinate (Solu-Medrol) 40 mg Q8 IV ; Start 10/13/18 at 14:00 Azithromycin (Zithromax) 250 mg DAILY PO ; Start 10/14/18 at 09:00 Allergies: Coded Allergies: lisinopril (Verified Allergy, Unknown, 10/12/18) Past Surgical History Past Surgical Hx: other (See HPI) Social History Alcohol Use: none Smoking Status: Never smoker Drug Use: none Exam/Review of Systems Exam Vitals Vital Signs Date Temp Pulse Resp B/P (MAP) Pulse Ox O2 O2 Flow FiO2 Time Delivery Rate 10/13/18 94 08:01 10/13/18 97.0 22 134/82 96 Room Air 07:23 (99) 10/12/18 21 19:33 Intake and Output 10/12/18 10/12/18 10/13/18 1515:00 23:00 07:00 IntakeIntake Total 200 ml BalanceBalance 200 ml Constitutional: alert, oriented, well developed Psych: no complaints, nl mood/affect; No anxiety, No confusion, No depression, No suicidal, No other Head: normocephalic, atraumatic; No lacerations, No hematomas, No other Eyes: nl conjunctiva, EOMI, nl lids, nl sclera, PERRL; No icteric, No fundi, disc, No other Neck: supple, non-tender Respiratory: crackles/rales, other (Left base, without rhonchi wheezing rubs) Cardiovascular: regular rate and rhythm, nl pulses; No bruits, No diastolic murmur, No edema, No gallop, No irregular rhythm, No jugular venous distention (JVD), No murmurs/extra sounds, No rub, No systolic murmur, No S3, No S4, No other Gastrointestinal: soft, nl liver, spleen, non-tender; No ascites, No bowel sounds, No distended, No firm, No hepatomegaly, No mass, No rebound or guarding, No splenomegaly, No surgical scars, No tender, No other Results Result Diagram: 10/13/18 0507 10/13/18 0507 Results 24hrs Laboratory Tests Test 10/12/18 19:54 10/12/18 19:57 10/13/18 05:04 10/13/18 05:07 White Blood Count 5.2 4.1 #L Red Blood Count 4.72 4.55 Hemoglobin 14.4 13.8 Hematocrit 44.2 42.6 Mean Corpuscular 93.6 93.6 Volume Mean Corpuscular 30.5 30.3 Hemoglobin Mean Corpuscular 32.6 32.4 Hemoglobin Concent Red Cell 14.4 14.3 Distribution Width Platelet Count 199 196 Mean Platelet Volume 11.1 H 11.4 H Immature 0.200 0.200 Granulocytes % Segmented 70 Neutrophils % (Manual) Band Neutrophils % 1 (Manual) Lymphocytes % 12 L (Manual) Reactive Lymphocytes 3 H % (Manual) Monocytes % (Manual) 12 H Eosinophils % 1 (Manual) Metamyelocytes % 1 H (manual) Nucleated Red Blood 0.0 0.0 Cells % Immature 0.010 0.010 Granulocytes # Neutrophils # 3.6 (Manual) Band Neutrophils # 0.0 Lymphocytes (Manual) 0.6 L Reactive Lymphocytes 0.1 H # Monocytes # (Manual) 0.6 Metamyelocytes # 0.0 Platelet Estimate NORMAL Polychromasia 1+ Poikilocytosis 1+ Sodium Level 141 142 Potassium Level 3.8 4.1 Chloride Level 103 106 Carbon Dioxide Level 28 26 Anion Gap 10 10 Blood Urea Nitrogen 11 12 Creatinine 0.62 0.60 Est Glomerular Filtrat Rate mL/min Glucose Level 96 115 Calcium Level 9.7 9.8 Troponin I < 0.012 Prothrombin Time 13.8 Prothrombin Time 1.1 Ratio INR International 1.05 Normalized Ratio Activated 33.5 Partial Thromboplast Time B-Type Natriuretic 727 H Peptide Thyroid Stimulating 2.140 Hormone (TSH) Free Thyroxine Index 2.79 Thyroxine (T4) 10.0 Triiodothyronine 27.9 (T3) Uptake Hemoglobin A1c 5.4 Neutrophils % 90.8 H Lymphocytes % 7.1 L Monocytes % 1.7 Eosinophils % 0.0 Basophils % 0.2 Neutrophils # 3.7 Lymphocytes # 0.3 L Monocytes # 0.1 L Eosinophils # 0.0 Basophils # 0.0 Nucleated Red Blood 0.0 Cells # Total Bilirubin 0.9 Direct Bilirubin 0.00 Indirect Bilirubin 0.9 Aspartate Amino 25 Transf (AST/SGOT) Alanine 20 Aminotransferase (AL T/SGPT) Alkaline Phosphatase 100 Total Protein 6.8 Albumin 4.0 Globulin 2.80 Albumin/Globulin 1.42 Ratio Medications Medication Current Medications Ondansetron HCl (Zofran Inj) 4 mg ER BRIDGE PRN IV NAUSEA/VOMITING; Start 10/12/18 at 21:00; Stop 10/13/18 at 20:59 Acetaminophen (Tylenol Tab) 650 mg ER BRIDGE PRN PO .MILD PAIN 1-3 OR TEMP; Start 10/12/18 at 21:00; Stop 10/13/18 at 20:59 IV Flush (NS 3 ml) 3 ml PER PROTOCOL IV ; Start 10/13/18 at 01:30 Ondansetron HCl (Zofran Inj) 4 mg Q6H PRN IV NAUSEA/VOMITING; Start 10/13/18 at 01:30 Acetaminophen (Tylenol Tab) 650 mg Q6H PRN PO .PAIN 1-3 OR TEMP; Start 10/13/18 at 01:30 Albuterol/ Ipratropium (Duoneb) 3 ml Q2H RESP THERAPY PRN HHN SHORTNESS OF BREATH; Start 10/13/18 at 01:30 Apixaban (Eliquis) 5 mg BID PO Last administered on 10/13/18 10:40; Admin Dose 5 MG; Start 10/13/18 at 02:16 Ascorbic Acid (Vitamin C) 500 mg DAILY PO Last administered on 10/13/18 08:11; Admin Dose 500 MG; Start 10/13/18 at 09:00 Atorvastatin Calcium (Lipitor) 40 mg DAILY PO Last administered on 10/13/18 08:10; Admin Dose 40 MG; Start 10/13/18 at 09:00 Fluticasone/ Vilanterol (Breo Ellipta 200-25 Mcg Inh) 1 inh DAILY INH Last administered on 10/13/18 08:10; Admin Dose 1 INH; Start 10/13/18 at 09:00 Furosemide (Lasix) 20 mg DAILY PO Last administered on 10/13/18 08:11; Admin Dose 20 MG; Start 10/13/18 at 09:00 Losartan Potassium (Cozaar) 100 mg DAILY PO Last administered on 10/13/18 08:11; Admin Dose 100 MG; Start 10/13/18 at 09:00 Diltiazem HCl (Cardizem Cd) 180 mg DAILY PO Last administered on 10/13/18 08:11; Admin Dose 180 MG; Start 10/13/18 at 09:00 Albuterol/ Ipratropium (Duoneb) 3 ml Q6H RESP THERAPY HHN ; Start 10/13/18 at 14:00 Methylprednisolone Sodium Succinate (Solu-Medrol) 40 mg Q8 IV ; Start 10/13/18 at 14:00 Azithromycin (Zithromax) 250 mg DAILY PO ; Start 10/14/18 at 09:00 FARIDEH JULES Oct 13, 2018 12:32
[2018-10-13] MEDS ORDERED: ALBUTEROL/IPRATROPIUM (NEB) 3 ML AMP HHN SCH (13:00)
[2018-10-13] MEDS: ALBUTEROL/IPRATROPIUM (NEB) 3 ML AMP HHN SCH ×3 (14:00→19:40)
[2018-10-13] MEDS: METHYLPREDNISOLONE 40 MG INJ IV SCH ×2 (14:33→21:35)
[2018-10-14] VITALS (8 sets, daily range): BP systolic 113–132; BP diastolic 57–70; PULSE 69–105; RESP 18–22
[2018-10-14] MEDS: ALBUTEROL/IPRATROPIUM (NEB) 3 ML AMP HHN SCH ×3 (01:00→13:54)
[2018-10-14] MEDS ORDERED: ZOLPIDEM 5 MG TAB PO PRN (01:30)
[2018-10-14] MEDS: METHYLPREDNISOLONE 40 MG INJ IV SCH ×2 (06:11→14:15)
[2018-10-14] MEDS: APIXABAN 5 MG TABLET PO SCH (08:09)
[2018-10-14] MEDS: ASCORBIC ACID 500 MG TAB PO SCH (08:09)
[2018-10-14] MEDS: ATORVASTATIN 40 MG TAB PO SCH (08:09)
[2018-10-14] MEDS: FUROSEMIDE 20 MG TAB PO SCH (08:09)
[2018-10-14] MEDS: LOSARTAN 50 MG TAB PO SCH (08:10)
[2018-10-14] MEDS: FLUTICASONE/VILANTEROL 200-25 INH DEVICE INH SCH (08:10)
[2018-10-14] MEDS: DILTIAZEM (CD) 180 MG CAP PO SCH (08:10)
[2018-10-14] MEDS ORDERED: AZITHROMYCIN 250 MG TAB PO SCH (09:00)
--- NOTE | 2018-10-14 10:04 | CONS ---
Assessment/Plan Assessment/Plan Assessment/Plan (Daily) CT chest was reviewed from yesterday which is showing chronic appearing right upper lobe fibrocavitary changes. Assessment recommendations; 1. Patient admitted with severe acute bronchitis for at least 4-6 weeks with interval improvement on current treatment regimen. 2. Chronic atrial fibrillation. 3. Remote history of pulmonary tuberculosis at age 27 with residual right upper lobe chronic appearing fibrocavitary changes. Continue current supportive care. Consultation Date/Type/Reason Admit Date/Time Oct 12, 2018 at 20:52 Initial Consult Date 10/13/18 Type of Consult Pulmonary Pulmonary consult requested for evaluation of asthma exacerbation with bronchitis. The patient is a pleasant 82-year-old [place] lady who came into the hospital with a month long history of coughing wheezing shortness of breath with very scant sputum production. The patient went to [facility] in late August and returned in mid September and according to the patient's daughter she had significant dust exposure there which triggered her coughing episodes the patient has had several rounds of outpatient antibiotic treatment without much long lasting benefit. Patient also has been on home nebulizer without any significant relief either. Patient however denies any fever, chest pain, hemoptysis, denies any sputum production. Complains of episodes of severe coughing with wheezing. Denies any shortness of breath at rest. By the time I saw her in the room, patient appeared comfortable and was completely awake and alert. Also possible to give history by herself. Past medical history; 1. History of questionable asthma. 2. History of pulmonary tuberculosis at age 27. Status post treatment. 3. History of chronic atrial fibrillation. 4. Long-term anticoagulation. Medications; reviewed. Allergies; lisinopril. Social history; never smoked, no history of alcohol drug abuse. Family history; she is a . Has 2 children. 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 Review of systems; denies any headache, sinus symptoms. Any visual changes. Any sore throat. Denies any chest pain. Complains of coughing, wheezing, without any sputum production or hemoptysis. Denies any fever, chills. Any body aches or myalgias. Any weight loss. Denies any GI or urinary symptoms. Denies any edema orthopnea. Any skin changes. Any weight loss. Any night sweats. General exam; elderly lady, awake alert, currently in no distress. Date/Time of Note DATE: 10/14/18 TIME: 10:02 24 HR Interval Summary Free Text/Dictation Patient's condition has improved. Will decrease chest congestion coughing and wheezing. General exam; elderly lady, awake alert, currently no distress. Exam/Review of Systems Exam Vitals Vital Signs Date Temp Pulse Resp B/P (MAP) Pulse Ox O2 O2 Flow FiO2 Time Delivery Rate 10/14/18 92 20 95 21 08:34 10/14/18 97.8 132/70 Room Air 07:59 (90) Intake and Output 10/13/18 10/13/18 10/14/18 1515:00 23:00 07:00 IntakeIntake Total 650 ml BalanceBalance 650 ml Exam HEENT exam; supple neck, no JVD. No lymphadenopathy. Midline trachea. No thyromegaly. Patient has dentures. Chest exam; diminished breath sounds bilaterally. S1-S2 audible, no murmurs. Irregular rhythm. Abdomen exam; soft, nontender. No organomegaly. Bowel sounds audible. Extremity exam; peripheral edema clubbing. FILM INSPECTOR exam; no focal deficit. Results Result Diagram: 10/14/18 0512 10/14/18 0512 Results 24hrs Laboratory Tests Test 10/14/18 05:12 White Blood Count 7.2 # Red Blood Count 4.74 Hemoglobin 14.6 Hematocrit 44.5 Mean Corpuscular Volume 93.9 Mean Corpuscular Hemoglobin 30.8 Mean Corpuscular Hemoglobin Concent 32.8 Red Cell Distribution Width 14.1 Platelet Count 219 Mean Platelet Volume 11.1 H Immature Granulocytes % 0.400 Neutrophils % 90.9 H Lymphocytes % 5.8 L Monocytes % 2.8 Eosinophils % 0.0 Basophils % 0.1 Nucleated Red Blood Cells % 0.0 Immature Granulocytes # 0.030 Neutrophils # 6.5 Lymphocytes # 0.4 L Monocytes # 0.2 L Eosinophils # 0.0 Basophils # 0.0 Nucleated Red Blood Cells # 0.0 Sodium Level 138 Potassium Level 3.8 Chloride Level 101 Carbon Dioxide Level 27 Anion Gap 10 Blood Urea Nitrogen 19 Creatinine 0.68 Est Glomerular Filtrat Rate mL/min Glucose Level 137 Calcium Level 10.5 H Phosphorus Level 3.2 Magnesium Level 2.1 Triglycerides Level 36 Cholesterol Level 152 LDL Cholesterol, Calculated 83 HDL Cholesterol 62 Cholesterol/HDL Ratio 2.4 Medications Medication Current Medications IV Flush (NS 3 ml) 3 ml PER PROTOCOL IV ; Start 10/13/18 at 01:30 Ondansetron HCl (Zofran Inj) 4 mg Q6H PRN IV NAUSEA/VOMITING; Start 10/13/18 at 01:30 Acetaminophen (Tylenol Tab) 650 mg Q6H PRN PO .PAIN 1-3 OR TEMP; Start 10/13/18 at 01:30 Albuterol/ Ipratropium (Duoneb) 3 ml Q2H RESP THERAPY PRN HHN SHORTNESS OF BREATH; Start 10/13/18 at 01:30 Apixaban (Eliquis) 5 mg BID PO Last administered on 10/14/18 08:09; Admin Dose 5 MG; Start 10/13/18 at 02:16 Ascorbic Acid (Vitamin C) 500 mg DAILY PO Last administered on 10/14/18 08:09; Admin Dose 500 MG; Start 10/13/18 at 09:00 Atorvastatin Calcium (Lipitor) 40 mg DAILY PO Last administered on 10/14/18 08:09; Admin Dose 40 MG; Start 10/13/18 at 09:00 Fluticasone/ Vilanterol (Breo Ellipta 200-25 Mcg Inh) 1 inh DAILY INH Last administered on 10/14/18 08:10; Admin Dose 1 INH; Start 10/13/18 at 09:00 Furosemide (Lasix) 20 mg DAILY PO Last administered on 10/14/18 08:09; Admin Dose 20 MG; Start 10/13/18 at 09:00 Losartan Potassium (Cozaar) 100 mg DAILY PO Last administered on 10/14/18 08:10; Admin Dose 100 MG; Start 10/13/18 at 09:00 Diltiazem HCl (Cardizem Cd) 180 mg DAILY PO Last administered on 10/14/18 08:10; Admin Dose 180 MG; Start 10/13/18 at 09:00 Albuterol/ Ipratropium (Duoneb) 3 ml Q6H RESP THERAPY HHN Last administered on 10/14/18 08:31; Admin Dose 3 ML; Start 10/13/18 at 14:00 Methylprednisolone Sodium Succinate (Solu-Medrol) 40 mg Q8 IV Last administered on 10/14/18 06:11; Admin Dose 40 MG; Start 10/13/18 at 14:00 Azithromycin (Zithromax) 250 mg DAILY PO Last administered on 10/14/18at 08:09; Admin Dose 250 MG; Start 10/14/18 at 09:00 RAJINDER RUTHERFORD 14, 2019 10:04
--- NOTE | 2018-10-14 10:34 | PDOCDIS ---
Discharge Instructions CONDITION [id number] Patient Condition: [id number] Stable HOME CARE INSTRUCTIONS: [id number] Diet Instructions: [id number] Low Fat /Cholesterol ACTIVITY: [id number] Activity Restrictions: [id number] Slowly Increase Activity Rest between Activity Avoid heavy lifting FOLLOW UP/APPOINTMENTS Follow-up Plan Please take your medications as prescribed, see your doctor in the clinic in the next 1-2 weeks. KIMMIE JOHNSON Oct 14, 2018 10:34
[2018-10-14] MEDS ORDERED: ALBU2.5V3 NEB (10:36)
[2018-10-14] MEDS ORDERED: AZIT250T13 PO (10:36)
--- NOTE | 2018-10-14 10:47 | DS ---
Date/Time of Note Date/Time of Note DATE: 10/14/18 TIME: 10:45 Discharge Summary Admission/Discharge Info Admit Date/Time Oct 12, 2018 at 20:52 Discharge Date/Time Discharge Diagnosis 1. Shortness of breath and cough-wheezing, all resolving, likely secondary to asthma exacerbation and known pulmonary fibrosis 2. Atrial fibrillation: Rate controlled -Continue diltiazem and apixaban 3. Hypertension 4. History of CVA 5. Dyslipidemia Patient Condition: Stable Hx of Present Illness 82-year-old female with a history of hypertension, dyslipidemia, CVA, atrial fibrillation, ?pulmonary fibrosis who was brought to the ER for shortness of breath and cough. Symptom has intermittently been going on for the last several weeks. Cough has been dry. Denied chest pain. Patient was taken to the urgent care where chest x-ray was done and was told she has " fluids in her lungs". When she presented to ER, vitals were stable. No history of atrial fibrillation. Basic labs was in acceptable range. BNP around 700. Chest x-ray shows the following. 1. Small right pleural effusion. 2. Cardiomegaly and atherosclerotic calcifications in the tortuous thoracic aorta. 3. Medial right apical bronchiectasis. 4. Mild atelectasis at the left lung base. 5. Otherwise, no evidence for active cardiopulmonary disease. Hospital Course Patient was admitted and seen by pulmonary team. Patient was started on breathing treatments, IV steroids, and low-dose p.o. antibiotics. Over the course of her hospital stay her shortness of breath symptoms improved. She had no wheezing symptoms by the time of discharge. Labs are stable, vital signs are stable. She was able to ambulate without assistance, tolerated diet. She will be discharged home today in improved condition with steroid taper and other medications. See below for full list of discharge medications. Home Meds Active Scripts Azithromycin* (Azithromycin*) 250 Mg Tablet, 250 MG PO DAILY for 5 Days, #5 TAB Prov:KIMMIE JOHNSON S. 10/14/18 Albuterol Sulfate* (Albuterol Sulfate* Neb) 0.083%-3 Ml Neb, 1.25 MG NEB Q3H PRN for WHEEZING AND SOB, #60 VIAL 2 Refills Prov:KIMMIE JOHNSON S. 10/14/18 Reported Medications Ascorbic Acid* (Vitamin C*) 500 Mg Capsule.sa, 500 MG PO DAILY, CAP 10/13/18 Multivits-Min/Iron/FA/Lutein (Centrum Silver Women Tablet) 1 Each Tablet, 1 EACH PO DAILY, TAB 10/13/18 [place]-3 Fatty Acids/Fish Oil (Fish Oil 1,000 mg Capsule) 1 Each Capsule, 1 EACH PO, CAP 10/13/18 Fluticasone/Vilanterol (Breo Ellipta 200-25 Mcg INH) 1 Each Blst.w.dev, 1 PUFF INHALATION DAILY, #1 INHALER 10/13/18 Apixaban* (Eliquis*) 5 Mg Tablet, 5 MG PO BID for 30 Days, #60 TAKE 1 TABLET BY MOUTH TWICE A DAY 10/13/18 Atorvastatin* (Atorvastatin*) 40 Mg Tablet, 40 MG PO DAILY for 30 Days, #30 TAKE 1 TABLET BY MOUTH EVERY DAY 10/13/18 Losartan Potassium* (Losartan Potassium*) 25 Mg Tablet, 100 MG PO DAILY for 30 Days, #30 TAKE 1 TABLET BY MOUTH EVERY DAY 10/13/18 Furosemide* (Furosemide*) 20 Mg Tablet, 20 MG PO DAILY for 30 Days, #30 10/13/18 Diltiazem Hcl (Diltiazem Er) 180 Mg Capsule.sa, 180 MG PO DAILY TAKE ONE CAPSULE BY MOUTH DAILY 10/13/18 Albuterol Sulfate* (Ventolin HFA*) 18 Gm Hfa.aer.ad, 2 PUFF INHALATION Q4H, #1 INHALER 10/13/18 Follow-up Plan Please take your medications as prescribed, see your doctor in the clinic in the next 1-2 weeks. Primary Care Provider Care Physician No Primary Time spent on discharge: > 30 minutes Pending Labs Laboratory Tests Test 10/14/18 05:12 White Blood Count 7.2 10^3/ul (4.8-10.8) Red Blood Count 4.74 10^6/ul (4.20-5.40) Hemoglobin 14.6 g/dl (12.0-16.0) Hematocrit 44.5 % (37.0-47.0) Mean Corpuscular Volume 93.9 fl (82.0-101.0) Mean Corpuscular Hemoglobin 30.8 pg (29.0-33.0) Mean Corpuscular Hemoglobin Concent 32.8 g/dl (32.0-37.0) Red Cell Distribution Width 14.1 % (11.5-14.5) Platelet Count 219 10^3/UL (140-415) Mean Platelet Volume 11.1 fl (7.4-10.4) Immature Granulocytes % 0.400 % (0.001-0.429) Neutrophils % 90.9 % (39.0-77.0) Lymphocytes % 5.8 % (15.0-51.0) Monocytes % 2.8 % (0.0-11.0) Eosinophils % 0.0 % (0.0-7.0) Basophils % 0.1 % (0.0-2.0) Nucleated Red Blood Cells % 0.0 /100WBC (0.0-0.0) Immature Granulocytes # 0.030 10^3/ul (0.0-0.031) Neutrophils # 6.5 10^3/ul (1.6-7.5) Lymphocytes # 0.4 10^3/ul (0.8-2.9) Monocytes # 0.2 10^3/ul (0.3-0.9) Eosinophils # 0.0 10^3/ul (0.0-0.5) Basophils # 0.0 10^3/ul (0.0-0.1) Nucleated Red Blood Cells # 0.0 10^3/ul (0.0-0.0) Sodium Level 138 mmol/L (135-144) Potassium Level 3.8 mmol/L (3.5-5.1) Chloride Level 101 mmol/L (97-110) Carbon Dioxide Level 27 mmol/L (21-31) Anion Gap 10 (5-13) Blood Urea Nitrogen 19 mg/dl (7-20) Creatinine 0.68 mg/dl (0.44-1.00) Est Glomerular Filtrat Rate mL/min mL/min (>60) Glucose Level 137 mg/dl (70-220) Calcium Level 10.5 mg/dl (8.4-10.2) Phosphorus Level 3.2 mg/dl (2.5-4.9) Magnesium Level 2.1 mg/dl (1.7-2.5) Triglycerides Level 36 mg/dl (0-149) Cholesterol Level 152 mg/dl (100-200) LDL Cholesterol, Calculated 83 mg/dl HDL Cholesterol 62 mg/dl (33-92) Cholesterol/HDL Ratio 2.4 RATIO KIMMIE JOHNSON Oct 14, 2018 10:47
== END 2018-10-14 19:10 | disposition home or self-care (01) | DRG 197 ==
LOC: FTE 16:38 → 6WM 20:52
PROVIDERS: ADMIT Internal Medicine; ATTEND Hospitalist
DX: J84.10 Pulmonary fibrosis, unspecified (principal); J44.1 Chronic obstructive pulmonary disease with (acute) exacerbation; J44.0 Chronic obstructive pulmonary disease with (acute) lower respiratory infection; I48.2 Chronic atrial fibrillation; I10 Essential (primary) hypertension; E78.5 Hyperlipidemia, unspecified; J20.9 Acute bronchitis, unspecified; Z79.01 Long term (current) use of anticoagulants; Z86.11 Personal history of tuberculosis; Z86.73 Personal history of transient ischemic attack (TIA), and cerebral infarction without residual deficits
CPT/HCPCS: 71045; 71250; 80048; 80053; 80061; 83036; 83735; 83880; 84100; 84436; 84443; 84479; 84484; 85025; 85610; 85730; 87400; 93005; 94640; 94644; 94664; 97161; J2920; J2930; J7512

== ENCOUNTER 2018-11-28 23:39 | Inpatient (IN) | payer BC ==
[~2018-11-28] VITALS: Ht 157.5 cm; Wt 69.2 kg
[~2018-11-28 23:39] MED LIST: ALBU18HF INHALATION; ALBU2.5V3 NEB; APIX5TAB PO; ASCO500C7 PO; ATOR40TA68 PO; AZIT250T13 PO; DILT180C76 PO; FLUT1BLS INHALATION; FURO20TA3 PO; LOSA25TA12 PO; MULT-853 PO; OMEG-135 PO
[2018-11-28] MEDS ORDERED: AZITHROMYCIN 500MG/NS (PMX) 250 ML IV STA (23:55)
[2018-11-28] MEDS ORDERED: IPRATROPIUM (NEB) 0.5 MG/2.5 ML AMP INH STA (23:55)
[2018-11-28] MEDS ORDERED: ALBUTEROL 0.5% (NEB) 2.5 MG/0.5 ML AMP INH STA (23:55)
[2018-11-29] VITALS (15 sets, daily range): BP systolic 103–153; BP diastolic 49–83; PULSE 73–100; RESP 14–24; Ht 157.5 cm; Wt 69.2 kg
[2018-11-29] MEDS ORDERED: DEXAMETHASONE 10 MG/ML 1 ML INJ IV ONE
[2018-11-29] MEDS ORDERED: CEFEPIME 2GM/50 ML (PMX) 50 ML IVPB STA (01:21)
[2018-11-29] MEDS ORDERED: VANCOMYCIN 1 GM (PMX) 250 ML IVPB ONE (01:30)
[2018-11-29] MEDS ORDERED: FUROSEMIDE 20 MG INJ IV ONE (02:00)
[2018-11-29] MEDS ORDERED: ALBUTEROL/IPRATROPIUM (NEB) 3 ML AMP HHN PRN (03:00)
[2018-11-29] MEDS ORDERED: ACETAMINOPHEN 325 MG TAB PO PRN (03:00)
[2018-11-29] MEDS ORDERED: ONDANSETRON 4 MG INJ IV PRN (03:00)
[2018-11-29] MEDS ORDERED: NACL 0.9% 3 ML SYG IV SCH (03:00)
--- NOTE | 2018-11-29 03:02 | ERD ---
ER Documentation Chief Complaint Chief Complaint SOB woke up fr sleep; cough x 5 days; COPD hx non smokers per dtr HPI This is a 82-year-old female with a history of atrial fibrillation, history of coronary disease, who presents with shortness of breath. History was obtained from the patient over the daughter, she is been having a cough, and has noted her to have increased work of breathing for the last few days, initially thought it might be a viral infection, however she has been worsening, and today she had acute shortness of breath. She has not had a fever, she takes 20 mill grams of Lasix daily, she has not any chest pain, no nausea or vomiting. There are no alleviating or aggravating factors. ROS All systems reviewed and are negative except as per history of present illness. Medications Home Meds Active Scripts Azithromycin* (Azithromycin*) 250 Mg Tablet, 250 MG PO DAILY for 5 Days, #5 TAB Prov:KIMMIE JOHNSON S. 10/14/18 Albuterol Sulfate* (Albuterol Sulfate* Neb) 0.083%-3 Ml Neb, 1.25 MG NEB Q3H PRN for WHEEZING AND SOB, #60 VIAL 2 Refills Prov:KIMMIE JOHNSON S. 10/14/18 Reported Medications Ascorbic Acid* (Vitamin C*) 500 Mg Capsule.sa, 500 MG PO DAILY, CAP 10/13/18 Multivits-Min/Iron/FA/Lutein (Centrum Silver Women Tablet) 1 Each Tablet, 1 EACH PO DAILY, TAB 10/13/18 [place]-3 Fatty Acids/Fish Oil (Fish Oil 1,000 mg Capsule) 1 Each Capsule, 1 EACH PO, CAP 10/13/18 Fluticasone/Vilanterol (Breo Ellipta 200-25 Mcg INH) 1 Each Blst.w.dev, 1 PUFF INHALATION DAILY, #1 INHALER 10/13/18 Apixaban* (Eliquis*) 5 Mg Tablet, 5 MG PO BID for 30 Days, #60 TAKE 1 TABLET BY MOUTH TWICE A DAY 10/13/18 Atorvastatin* (Atorvastatin*) 40 Mg Tablet, 40 MG PO DAILY for 30 Days, #30 TAKE 1 TABLET BY MOUTH EVERY DAY 10/13/18 Losartan Potassium* (Losartan Potassium*) 25 Mg Tablet, 100 MG PO DAILY for 30 Days, #30 TAKE 1 TABLET BY MOUTH EVERY DAY 10/13/18 Furosemide* (Furosemide*) 20 Mg Tablet, 20 MG PO DAILY for 30 Days, #30 10/13/18 Diltiazem Hcl (Diltiazem Er) 180 Mg Capsule.sa, 180 MG PO DAILY TAKE ONE CAPSULE BY MOUTH DAILY 10/13/18 Albuterol Sulfate* (Ventolin HFA*) 18 Gm Hfa.aer.ad, 2 PUFF INHALATION Q4H, #1 INHALER 10/13/18 Allergies Allergies: Coded Allergies: lisinopril (Verified Allergy, Unknown, 10/12/18) PMhx/Soc History of Surgery: No (VEIN STREAKING) Anesthesia Reaction: No Hx Neurological Disorder: Yes (CVA) Hx Respiratory Disorders: Yes (TB, PULMONARY FIBROSIS, ) Hx Cardiac Disorders: Yes (HTN, HLD, HTN, AFIB) Hx Psychiatric Problems: No Hx Miscellaneous Medical Probl: Yes (HTN, dyslipidemia, CVA, Afib, pulmonary fibrosis ) Hx Alcohol Use: No Hx Substance Use: No Hx Tobacco Use: No Smoking Status: Never smoker Physical Exam Vitals Vital Signs Date Temp Pulse Resp B/P (MAP) Pulse Ox O2 O2 Flow FiO2 Time Delivery Rate 11/29/18 94 99 40 01:52 11/29/18 87 22 94 21 00:21 11/29/18 98.6 88 22 156/69 95 00:01 (98) 11/28/18 99.6 89 22 156/72 95 23:41 (100) Physical Exam Const: Moderate respiratory distress, tachypnea, elderly appearing female Head: Atraumatic Eyes: Normal Conjunctiva ENT: Normal External Ears, Nose and Mouth. Neck: Full range of motion. No meningismus. Resp: Rhonchi noted bilaterally Cardio: Regular rate and rhythm, no murmurs Abd: Soft, non tender, non distended. Normal bowel sounds Skin: No petechiae or rashes Back: No midline or flank tenderness Ext: No cyanosis, or edema Neur: Awake and alert Psych: Normal Mood and Affect Result Diagram: 11/29/184 11/29/184 Results 24 hrs Laboratory Tests Test 11/29/18 00:24 White Blood Count 7.6 10^3/ul Red Blood Count 4.54 10^6/ul Hemoglobin 13.8 g/dl Hematocrit 42.3 % Mean Corpuscular Volume 93.2 fl Mean Corpuscular Hemoglobin 30.4 pg Mean Corpuscular Hemoglobin Concent 32.6 g/dl Red Cell Distribution Width 14.6 % Platelet Count 173 10^3/UL Mean Platelet Volume 10.4 fl Immature Granulocytes % 0.400 % Neutrophils % 78.2 % Lymphocytes % 7.0 % Monocytes % 13.3 % Eosinophils % 0.7 % Basophils % 0.4 % Nucleated Red Blood Cells % 0.0 /100WBC Immature Granulocytes # 0.030 10^3/ul Neutrophils # 5.9 10^3/ul Lymphocytes # 0.5 10^3/ul Monocytes # 1.0 10^3/ul Eosinophils # 0.1 10^3/ul Basophils # 0.0 10^3/ul Nucleated Red Blood Cells # 0.0 10^3/ul Prothrombin Time 15.2 Sec Prothrombin Time Ratio 1.2 INR International Normalized Ratio 1.19 Activated Partial Thromboplast Time 35.3 Sec Sodium Level 136 mmol/L Potassium Level 3.3 mmol/L Chloride Level 101 mmol/L Carbon Dioxide Level 26 mmol/L Anion Gap 9 Blood Urea Nitrogen 11 mg/dl Creatinine 0.57 mg/dl Est Glomerular Filtrat Rate mL/min mL/min Glucose Level 135 mg/dl Calcium Level 9.4 mg/dl Troponin I < 0.012 ng/ml B-Type Natriuretic Peptide 708 PG/ML Current Medications Medications Dose Sig/Shivam Start Time Status Last (Trade) Ordered Route PRN Stop Time Admin Dose Reason Admin Ipratropium 0.5 mg ONCE STAT 11/28/18 DC 11/29/18 [place] [facility] 23:55 00:20 (Atrovent 11/29/18 00:00 0.02% (Neb)) Albuterol 15 mg ONCE STAT 11/28/18 DC 11/29/18 (Proventil INH 23:55 00:20 0.5% (Neb)) 11/29/18 00:00 Azithromycin 250 ml @ ONCE STAT 11/28/18 DC 11/29/18 250 mls/hr IV 23:55 00:27 11/29/18 00:54 10 mg ONCE ONCE 11/29/18 DC 11/29/18 Dexamethasone IV 00:00 00:28 (Decadron) 11/29/18 00:01 Cefepime HCl 50 ml @ ONCE STAT 11/29/18 DC 11/29/18 100 mls/hr IVPB 01:21 02:00 11/29/18 01:50 Vancomycin 250 ml @ ONCE ONCE 11/29/18 11/29/18 HCl 125 mls/hr IVPB 01:30 02:41 11/29/18 03:29 Furosemide 20 mg ONCE ONCE 11/29/18 DC 11/29/18 (Lasix) IV 02:00 02:48 11/29/18 02:11 IV Flush 3 ml PER 11/29/18 UNV (NS 3 ml) PROTOCOL IV 03:00 Ondansetron 4 mg Q6H PRN 11/29/18 UNV HCl (Zofran IV 03:00 Inj) NAUSEA/VOMITI NG 80 mg DAILY IV 11/29/18 UNV Methylprednis 09:00 olone Sodium Succinate (Solu-Medrol) 650 mg Q6H PRN 11/29/18 UNV Acetaminophen PO .PAIN 1-3 03:00 (Tylenol OR TEMP Tab) Heparin 5,000 unit Q12 SC 11/29/18 UNV Sodium 09:00 (Porcine) (Heparin (5000 Units/1ml)) Albuterol/ 3 ml Q2H RESP 11/29/18 UNV Ipratropium THERAPY PRN 03:00 (Duoneb) HHN SHORTNESS OF BREATH Apixaban 5 mg BID PO 11/29/18 UNV (Eliquis) 09:00 40 mg DAILY PO 11/29/18 UNV Atorvastatin 09:00 Calcium (Lipitor) Furosemide 20 mg DAILY PO 11/29/18 UNV (Lasix) 09:00 Procedures/[facility] Is an 82-year-old female presents for evaluation of shortness of breath. On exam the patient was noted to be rhonchorous bilaterally, she is given a breathing treatment some improvement, however she still continued tachypnea, thus she was started on BiPAP, she also received a dose of steroids, she did experience improvement in her breathing with the BiPAP. Her chest x-ray was notable for consolidation, concerning for possible pneumonia, as she had an admission within the last 90 days, she is treated for healthcare associated pneumonia with vancomycin and cefepime. She has no evidence of severe sepsis or septic shock. I suspect that her symptoms are most likely related to a pneumonia, with a component of CHF, however given CHF I think would be contraind icated to give 30 cc/kg IV fluids. The patient remained stable in the ED, but given her comorbidities and the fact that she is still on BiPAP, I felt that she will require monitoring the ICU for concern for possible decompensation. Accepting Care Team: Current data and ongoing care discussed. Time: Time of admission Primary Provider: Linda Consulting: None Outstanding Data: none EKG: Rate/Rhythm: Atrial fibrillation QRS, ST, T-waves: No changes consistent w/ acute ischemia Impression: No evidence of ischemia or arrhythmia Critical Care Time: 35 minutes Treatments/Evaluations: Close monitoring and treatment of unstable vital signs, cardiorespiratory, and neurologic status, while maintaining tight balance of fluid, respiratory, and cardiac interventions. This time includes discussing the case with the patient and the patient's family. This time does not include all procedures stated elsewhere in this record. This time also includes reviewing old records, labs and radiological studies. This time includes examining and re-examining the patient. Additionally, this time also includes arranging care with admitting and consulting physicians. Departure Diagnosis: Primary Impression: Shortness of breath Additional Impressions: Pneumonia Pneumonia type: due to unspecified organism Laterality: unspecified laterality Lung location: unspecified part of lung Qualified Codes: J18.9 - Pneumonia, unspecified organism CHF (congestive heart failure) Heart failure type: unspecified Heart failure chronicity: unspecified Qualified Codes: I50.9 - Heart failure, unspecified Condition: FRANK Michael MD Nov 29, 2018 03:02
--- NOTE | 2018-11-29 07:23 | HP ---
Date/Time of Note Date/Time of Note DATE: 11/29/18 TIME: 07:16 Assessment/Plan VTE Prophylaxis Pharmacological prophylaxis: heparin Lines/Catheters IV C[facility]ter Type (from [facility]): Peripheral IV Urinary Cath still in place: No Assessment/Plan Assessment/Plan 10-year-old female with a history of atrial fibrillation, hypertension, CVA, asthma and pulmonary fibrosis and a recent hospitalization 2 weeks ago for shortness of breath was brought to the ER for shortness of breath, with chest x- ray showing pneumonia. PLAN -Given patient was just admitted here recently, will treat for hospital-acquired pneumonia -Respiratory culture if possible -If symptoms persist, obtain chest CT -Supplemental oxygen, bronchodilators, steroid as needed -Continue home meds. Adjust as needed Result Diagram: 11/29/18 0451 11/29/18 0024 Results 24hrs Laboratory Tests Test 11/29/18 00:24 11/29/18 03:55 11/29/18 04:00 11/29/18 04:51 White Blood Count 7.6 7.6 Red Blood Count 4.54 4.80 Hemoglobin 13.8 14.3 Hematocrit 42.3 44.7 Mean Corpuscular 93.2 93.1 Volume Mean Corpuscular 30.4 29.8 Hemoglobin Mean Corpuscular 32.6 32.0 Hemoglobin Concen t Red Cell 14.6 H 14.5 Distribution Width Platelet Count 173 # 186 Mean Platelet 10.4 10.9 H Volume Immature 0.400 0.400 Granulocytes % Neutrophils % 78.2 H 94.9 H Lymphocytes % 7.0 L 2.8 L Monocytes % 13.3 H 1.8 Eosinophils % 0.7 0.0 Basophils % 0.4 0.1 Nucleated Red 0.0 0.0 Blood Cells % Immature 0.030 0.030 Granulocytes # Neutrophils # 5.9 7.2 Lymphocytes # 0.5 L 0.2 L Monocytes # 1.0 H 0.1 L Eosinophils # 0.1 0.0 Basophils # 0.0 0.0 Nucleated Red 0.0 0.0 Blood Cells # Prothrombin Time 15.2 H Prothrombin Time 1.2 Ratio INR International 1.19 Normalized Ratio Activated 35.3 H Partial Thrombopl ast Time Sodium Level 136 Potassium Level 3.3 L Chloride Level 101 Carbon Dioxide 26 Level Anion Gap 9 Blood Urea 11 Nitrogen Creatinine 0.57 Est Glomerular Filtrat Rate mL/min Glucose Level 135 Calcium Level 9.4 Troponin I < 0.012 B-Type 708 H Natriuretic Peptide Lactic Acid Level 1.7 Blood Gas Blood arterial Specimen Source Arterial Blood 11/29/2018 3:55:2 Date Drawn 2 AM Arterial Blood pH 7.387 (Temp corrected) Arterial Blood 41.6 pCO2 (Temp correct) Arterial Blood 73.9 L pO2 (Temp corrected) Arterial Blood 24.4 HCO3 Arterial Blood -0.6 Base Excess Arterial Blood 94.2 L Oxygen Saturation Jasvir Test ACCEPTAB Arterial Blood Right Radial Gas Puncture Site Arterial 0.3 Blood Carboxyhemo globin Arterial Blood 0.4 Methemoglobin Blood Gas A-a O2 163.5 H Differential Oxyhemoglobin 93.5 Percent Blood Gas 37.0 Temperature Blood Gas 16.0 Respiration Rate Blood Gas Actual 23 Respiration Rate Blood Gas MASK - BIPAP Modality FiO2 40.0 Blood Gas 13 Pressure Support Blood Gas 15/8 IPAP/EPAP Ratio Blood Gas CHAMP Booth MD Critical Value Read Back Blood Gas KB Notified Whom Blood Gas 11/29/2018 4:02:1 Notified Time 1 AM HPI/ROS Admit Date/Time Admit Date/Time Nov 29, 2018 at 02:18 Hx of Present Illness This is an 82-year-old female with a history of atrial fibrillation, hypertension, CVA, asthma, pulmonary fibrosis who was brought to the ER for a shortness of breath. Information is mainly gathered from her daughter who was at the bedside. She said she went to bed around 2200 last night and shortly after she started having shortness of breath. Patient was admitted for shortness of breath here a 2 weeks ago. When she presented to the ER, vitals were stable. Chest x-ray shows the following 1. Patchy consolidation in the left mid lung zone is new since the prior exam and concerning for pneumonia. Recommend follow-up chest x-ray after therapy to document resolution. 2. Fibrocalcific scarring at the right lung apex and increased opacity at the right lung base are unchanged from the prior exam and chronic. 3. Cardiomegaly with a coronary artery stent. PMH/Family/Social Past Medical History Medical History: other (Alprazolam is anicteric with clear see HPI) Medications Current Medications IV Flush (NS 3 ml) 3 ml PER PROTOCOL IV ; Start 11/29/18 at 03:00 Ondansetron HCl (Zofran Inj) 4 mg Q6H PRN IV NAUSEA/VOMITING; Start 11/29/18 at 03:00 Methylprednisolone Sodium Succinate (Solu-Medrol) 80 mg DAILY IV ; Start 11/29/18 at 09:00 Acetaminophen (Tylenol Tab) 650 mg Q6H PRN PO .PAIN 1-3 OR TEMP; Start 11/29/18 at 03:00 Albuterol/ Ipratropium (Duoneb) 3 ml Q2H RESP THERAPY PRN HHN SHORTNESS OF BREATH; Start 11/29/18 at 03:00 Apixaban (Eliquis) 5 mg BID PO ; Start 11/29/18 at 09:00 Atorvastatin Calcium (Lipitor) 40 mg DAILY PO ; Start 11/29/18 at 09:00 Furosemide (Lasix) 20 mg DAILY PO ; Start 11/29/18 at 09:00 Coded Allergies: lisinopril (Verified Allergy, Unknown, 10/12/18) Past Surgical History Past Surgical Hx: other (See HPI) Family History Significant Family History: no pertinent family hx Social History Alcohol Use: none Smoking Status: Never smoker Drug Use: none Exam/Review of Systems Vital Signs Vitals Vital Signs Date Temp Pulse Resp B/P (MAP) Pulse Ox O2 O2 Flow FiO2 Time Delivery Rate 11/29/18 78 19 126/67 100 BIPAP 07:00 (86) 11/29/18 40 05:00 11/29/18 98.6 04:29 Intake and Output 11/28/18 11/28/18 11/29/18 1515:00 23:00 07:00 IntakeIntake Total 550 ml OutputOutput Total 750 ml BalanceBalance -200 ml Exam Constitutional: other (Patient sleepy, but arousable. ) Head: normocephalic, atraumatic Respiratory: wheezing, other Cardiovascular: regular rate and rhythm, nl pulses Gastrointestinal: soft Extremities: normal pulses BIBIANA MARTINEZ MD Nov 29, 2018 07:23
[2018-11-29] MEDS ORDERED: VANCOMYCIN IV PER PHARMACY XX SCH (08:30)
[2018-11-29] MEDS ORDERED: FUROSEMIDE 20 MG TAB PO SCH (09:00)
[2018-11-29] MEDS ORDERED: HEPARIN 5,000 UNIT/1 ML VIAL SC SCH (09:00)
[2018-11-29] MEDS ORDERED: METHYLPREDNISOLONE 125 MG INJ IV SCH (09:00)
--- NOTE | 2018-11-29 09:22 | PN ---
Date/Time of Note Date/Time of Note DATE: 11/29/18 TIME: 09:14 Assessment/Plan VTE Prophylaxis Pharmacological prophylaxis: apixaban Lines/Catheters IV Catheter Type (from [facility]): Peripheral IV Urinary Cath still in place: No Assessment/Plan Hospital Course 82 yo filipina female admitted and managed as follows: Acute resp failure on NIPPV 2/ #2 Healthcare associated pneumonia Chronic atrial fibrillation with good rate control Hypertension with good control History of CVA Chronic dyslipidemia on statin therapy Coronary artery disease s/p prev Stent Rule out CHF Hypokalemia Plan Continue empiric antibiotics with cefepime Wean off bipap Obtain 2D echo, continue scheduled bronchodilator therapy Currently on IV steroids Replete electrolytes Continue close monitoring in ICU Further interventions because Prophylaxis: Apixaban and Pepcid. Result Diagram: 11/29/18 04511/29/18450 Results 24hrs Laboratory Tests Test 11/29/18 00:24 11/29/18 03:55 11/29/18 04:00 11/29/18 04:51 White Blood Count 7.6 7.6 Red Blood Count 4.54 4.80 Hemoglobin 13.8 14.3 Hematocrit 42.3 44.7 Mean Corpuscular 93.2 93.1 Volume Mean Corpuscular 30.4 29.8 Hemoglobin Mean Corpuscular 32.6 32.0 Hemoglobin Concen t Red Cell 14.6 H 14.5 Distribution Width Platelet Count 173 # 186 Mean Platelet 10.4 10.9 H Volume Immature 0.400 0.400 Granulocytes % Neutrophils % 78.2 H 94.9 H Lymphocytes % 7.0 L 2.8 L Monocytes % 13.3 H 1.8 Eosinophils % 0.7 0.0 Basophils % 0.4 0.1 Nucleated Red 0.0 0.0 Blood Cells % Immature 0.030 0.030 Granulocytes # Neutrophils # 5.9 7.2 Lymphocytes # 0.5 L 0.2 L Monocytes # 1.0 H 0.1 L Eosinophils # 0.1 0.0 Basophils # 0.0 0.0 Nucleated Red 0.0 0.0 Blood Cells # Prothrombin Time 15.2 H Prothrombin Time 1.2 Ratio INR International 1.19 Normalized Ratio Activated 35.3 H Partial Thrombopl ast Time Sodium Level 136 142 Potassium Level 3.3 L 3.1 L Chloride Level 101 104 Carbon Dioxide 26 24 Level Anion Gap 9 14 H Blood Urea 11 12 Nitrogen Creatinine 0.57 0.59 Est Glomerular Filtrat Rate mL/min Glucose Level 135 150 Calcium Level 9.4 9.4 Troponin I < 0.012 B-Type 708 H Natriuretic Peptide Lactic Acid Level 1.7 Blood Gas Blood arterial Specimen Source Arterial Blood 11/29/2018 3:55:2 Date Drawn 2 AM Arterial Blood pH 7.387 (Temp corrected) Arterial Blood 41.6 pCO2 (Temp correct) Arterial Blood 73.9 L pO2 (Temp corrected) Arterial Blood 24.4 HCO3 Arterial Blood -0.6 Base Excess Arterial Blood 94.2 L Oxygen Saturation Jasvir Test ACCEPTAB Arterial Blood Right Radial Gas Puncture Site Arterial 0.3 Blood Carboxyhemo globin Arterial Blood 0.4 Methemoglobin Blood Gas A-a O2 163.5 H Differential Oxyhemoglobin 93.5 Percent Blood Gas 37.0 Temperature Blood Gas 16.0 Respiration Rate Blood Gas Actual 23 Respiration Rate Blood Gas MASK - BIPAP Modality FiO2 40.0 Blood Gas 13 Pressure Support Blood Gas 15/8 IPAP/EPAP Ratio Blood Gas CHAMP Booth MD Critical Value Read Back Blood Gas KB Notified Whom Blood Gas 11/29/2018 4:02:1 Notified Time 1 AM Magnesium Level 1.8 Total Bilirubin 0.8 Direct Bilirubin 0.00 Indirect 0.8 Bilirubin Aspartate Amino 37 Transf (AST/SGOT) Alanine 27 Aminotransferase (ALT/SGPT) Alkaline 119 Phosphatase Total Protein 7.0 Albumin 4.2 Globulin 2.80 Albumin/Globulin 1.50 Ratio Subjective 24 Hr Interval Summary Free Text/Dictation Patient seen and examined. looks stable on bipap possible weaning later wants to eat Exam/Review of Systems Exam Vitals Vital Signs Date Temp Pulse Resp B/P (MAP) Pulse Ox O2 O2 Flow FiO2 Time Delivery Rate 11/29/18 74 08:00 11/29/18 19 126/67 100 BIPAP 07:00 (86) 11/29/18 40 05:00 11/29/18 98.6 04:29 Intake and Output 11/28/18 11/28/18 11/29/18 1515:00 23:00 07:00 IntakeIntake Total 550 ml OutputOutput Total 750 ml BalanceBalance -200 ml Exam General: alert, comfortable, elderly HEENT: Bipap mask Neck: supple CVS: S1, S2, RRR. no murmurs. no pain on chest wall palpation Lungs: diminished, coarse BS, no wheezing at this time Abd: soft, nontender, +BS Ext: moving all extremities, edema skin: no rashes Results Results 24hrs Laboratory Tests Test 11/29/18 00:24 11/29/18 03:55 11/29/18 04:00 11/29/18 04:51 White Blood Count 7.6 7.6 Red Blood Count 4.54 4.80 Hemoglobin 13.8 14.3 Hematocrit 42.3 44.7 Mean Corpuscular 93.2 93.1 Volume Mean Corpuscular 30.4 29.8 Hemoglobin Mean Corpuscular 32.6 32.0 Hemoglobin Concen t Red Cell 14.6 H 14.5 Distribution Width Platelet Count 173 # 186 Mean Platelet 10.4 10.9 H Volume Immature 0.400 0.400 Granulocytes % Neutrophils % 78.2 H 94.9 H Lymphocytes % 7.0 L 2.8 L Monocytes % 13.3 H 1.8 Eosinophils % 0.7 0.0 Basophils % 0.4 0.1 Nucleated Red 0.0 0.0 Blood Cells % Immature 0.030 0.030 Granulocytes # Neutrophils # 5.9 7.2 Lymphocytes # 0.5 L 0.2 L Monocytes # 1.0 H 0.1 L Eosinophils # 0.1 0.0 Basophils # 0.0 0.0 Nucleated Red 0.0 0.0 Blood Cells # Prothrombin Time 15.2 H Prothrombin Time 1.2 Ratio INR International 1.19 Normalized Ratio Activated 35.3 H Partial Thrombopl ast Time Sodium Level 136 142 Potassium Level 3.3 L 3.1 L Chloride Level 101 104 Carbon Dioxide 26 24 Level Anion Gap 9 14 H Blood Urea 11 12 Nitrogen Creatinine 0.57 0.59 Est Glomerular Filtrat Rate mL/min Glucose Level 135 150 Calcium Level 9.4 9.4 Troponin I < 0.012 B-Type 708 H Natriuretic Peptide Lactic Acid Level 1.7 Blood Gas Blood arterial Specimen Source Arterial Blood 11/29/2018 3:55:2 Date Drawn 2 AM Arterial Blood pH 7.387 (Temp corrected) Arterial Blood 41.6 pCO2 (Temp correct) Arterial Blood 73.9 L pO2 (Temp corrected) Arterial Blood 24.4 HCO3 Arterial Blood -0.6 Base Excess Arterial Blood 94.2 L Oxygen Saturation Jasvir Test ACCEPTAB Arterial Blood Right Radial Gas Puncture Site Arterial 0.3 Blood Carboxyhemo globin Arterial Blood 0.4 Methemoglobin Blood Gas A-a O2 163.5 H Differential Oxyhemoglobin 93.5 Percent Blood Gas 37.0 Temperature Blood Gas 16.0 Respiration Rate Blood Gas Actual 23 Respiration Rate Blood Gas MASK - BIPAP Modality FiO2 40.0 Blood Gas 13 Pressure Support Blood Gas 15/8 IPAP/EPAP Ratio Blood Gas CHAMP Booth MD Critical Value Read Back Blood Gas KB Notified Whom Blood Gas 11/29/2018 4:02:1 Notified Time 1 AM Magnesium Level 1.8 Total Bilirubin 0.8 Direct Bilirubin 0.00 Indirect 0.8 Bilirubin Aspartate Amino 37 Transf (AST/SGOT) Alanine 27 Aminotransferase (ALT/SGPT) Alkaline 119 Phosphatase Total Protein 7.0 Albumin 4.2 Globulin 2.80 Albumin/Globulin 1.50 Ratio Imaging Imaging PROCEDURE: Portable chest x-ray. CLINICAL INDICATION: 82 years of age, female. Shortness of breath TECHNIQUE: Portable AP view of the chest. COMPARISON: Chest x-ray October 12, [address] October 13, 2018 FINDINGS: Medical devices: None. Mediastinum: Atherosclerotic calcification and tortuosity of the thoracic aorta. Moderate enlarged cardiopericardial silhouette. There is a coronary artery stent over the left heart. Lungs: There is pleuroparenchymal scarring at the right lung apex that is unchanged from the prior exam. There is patchy consolidation in the left mid lung zone that is new. There is a mild increased opacity in the right lower lung zone that is unchanged from the prior exam. Pleura: Negative for pleural effusion or pneumothorax. Bones: No acute bony abnormality. Additional comment: None. IMPRESSION: 1. Patchy consolidation in the left mid lung zone is new since the prior exam and concerning for pneumonia. Recommend follow-up chest x-ray after therapy to document resolution. 2. Fibrocalcific scarring at the right lung apex and increased opacity at the right lung base are unchanged from the prior exam and chronic. 3. Cardiomegaly with a coronary artery stent. RPTAT: HCTS Gwendolyn Barrett Physician Date Time Electronically viewed and signed by Gwendolyn Barrett Physician on 11/29/2018 00:43 CS/ CC: FRANK OAKES MD [id number] Medications Medication Current Medications IV Flush (NS 3 ml) 3 ml PER PROTOCOL IV ; Start 11/29/18 at 03:00 Ondansetron HCl (Zofran Inj) 4 mg Q6H PRN IV NAUSEA/VOMITING; Start 11/29/18 at 03:00 Methylprednisolone Sodium Succinate (Solu-Medrol) 80 mg DAILY IV ; Start 11/29/18 at 09:00 Acetaminophen (Tylenol Tab) 650 mg Q6H PRN PO .PAIN 1-3 OR TEMP; Start 11/29/18 at 03:00 Albuterol/ Ipratropium (Duoneb) 3 ml Q2H RESP THERAPY PRN HHN SHORTNESS OF BREATH; Start 11/29/18 at 03:00 Apixaban (Eliquis) 5 mg BID PO ; Start 11/29/18 at 09:00 Atorvastatin Calcium (Lipitor) 40 mg DAILY PO ; Start 11/29/18 at 09:00 Furosemide (Lasix) 20 mg DAILY PO ; Start 11/29/18 at 09:00 Cefepime HCl 50 ml @ 100 mls/hr Q12 IVPB ; Start 11/29/18 at 21:00 Vancomycin HCl (Vanco Iv Per Pharmacy) VANCOMYCIN PER PHARMACY PER PROTOCOL XX ; Start 11/29/18 at 08:30 YVROSE BARAJAS Nov 29, 2018 09:22
[2018-11-29] MEDS: ARFORMOTEROL TARTRATE 15MCG/2 ML AMP NEB SCH ×2 (09:30→20:08)
[2018-11-29] MEDS: ATORVASTATIN 40 MG TAB PO SCH (10:00)
[2018-11-29] MEDS: APIXABAN 5 MG TABLET PO SCH ×2 (10:00→21:02)
[2018-11-29] MEDS: POTASSIUM CHLORIDE 100 ML IVPB SCH ×4 (11:30→13:45)
[2018-11-29] MEDS ORDERED: POTASSIUM CHLORIDE (SR) 20 MEQ TAB PO STA ×2 (13:30→13:31)
--- NOTE | 2018-11-29 17:04 | RADRPT ---
Echocardiogram Report Patient Name: TORIE SAGASTUMEPatient ID: [id number] : [id number] (82y 12m)Study Date: 11/29/2018 11:32:23 AM Gender: FAccession #: [id number] Tech: PA Location: Ref.Physician: YVROSE BARAJAS Height(Cm): BSA: Weight(Kg): Quality: AdequateAccount #: Procedures: Echocardiographic Report: Transthoracic echocardiogram with complete 2D, M-Mode, and doppler examination. Indications: resp failure. Measurements: 2D/M Mode Doppler Measurement Value Normal Range Measurement Value Normal Range LVIDd 2D 5.2 [ 3.8 - 5.2 ] cm AV Peak Wili 1.4 [ 100.0 - 170.0 ] cm/sec LVIDs 2D 3.2 [ 2.2 - 3.5 ] cm AV Peak PG 8.0 [ 2.0 - 9.0 ] mmHg LVPWd 2D 1.1 [ 0.6 - 0.9 ] cm LVOT Peak Wili 0.8 [ 70.0 - 110.0 ] cm/sec IVSd 2D 1.2 [ 0.6 - 0.9 ] cm LVOT Peak PG 3.0 [ 2.0 - 6.0 ] mmHg AoR Diam 2D 2.8 [ 2.3 - 3.1 ] cm MV E Peak Wili 1.1 [ 60.0 - 130.0 ] cm/sec EDV 2D 127.0 [ 46.0 - 106.0 ] ml MV Decel Time 190 [ 104 - 258 ] msec ESV 2D 40.3 [ 14.0 - 42.0 ] ml Lat E` Wili 0.1 [ 10.0 - 15.0 ] cm/sec EF 2D 68.3 [ 54.0 - 74.0 ] percent Lateral E/E` 10.6 [ 1.0 - 2.0 ] ratio LA Dimen 2D 3.6 [ 2.7 - 3.8 ] cm TR Peak Wili 2.6 [ 100.0 - 280.0 ] cm/sec TR Peak PG 27.0 mmHg RVSP 37.0 [ 10.0 - 36.0 ] mmHg RA Pressure 10.0 mmHg Findings: Left Ventricle: Overall, normal left ventricular systolic function. Not all segments visualized. Normal left ventricular cavity size. Mild concentric left ventricular hypertrophy. Ejection fraction is visually estimated at 55 %. Abnormal Diastolic Function. Right Ventricle: Normal right ventricular size. Normal right ventricular systolic function. Left Atrium: The left atrium is normal in size. Right Atrium: The right atrium is normal in size. Mitral Valve: Normal appearance of the mitral valve. Mild mitral annular calcification. Trace mitral regurgitation. Aortic Valve: No significant aortic stenosis or insufficiency. Aortic cusps appear mildly calcified. Tricuspid Valve: Normal appearance of the tricuspid valve. Estimated peak PA systolic pressure 37 mmHg. There is mild tricuspid regurgitation. Pulmonic Valve: Pulmonic valve not well visualized. Pericardium: Normal pericardium with no significant pericardial effusion. Aorta: Normal aortic root. IVC: Normal size and no respiratory collapse consistent with elevated right atrial pressure. Conclusions: Overall, normal left ventricular systolic function. Not all segments visualized. Normal left ventricular cavity size. Mild concentric left ventricular hypertrophy. Ejection fraction is visually estimated at 55 %. Abnormal Diastolic Function. Normal appearance of the mitral valve. Mild mitral annular calcification. Trace mitral regurgitation. No significant aortic stenosis or insufficiency. Aortic cusps appear mildly calcified. Normal appearance of the tricuspid valve. Estimated peak PA systolic pressure 37 mmHg. There is mild tricuspid regurgitation. suboptimal study. Electronically Signed By: Navid Hwang 2018-11-29 17:03:07 PDT
[2018-11-29] MEDS: CEFEPIME 1GM/50 ML (PMX) 50 ML IVPB SCH (21:02)
[2018-11-29] MEDS: VANCOMYCIN 1 GM 250 ML IVPB SCH (21:56)
[2018-11-30] VITALS (12 sets, daily range): BP systolic 130–179; BP diastolic 67–87; PULSE 67–100; RESP 16–20
[2018-11-30] MEDS: ARFORMOTEROL TARTRATE 15MCG/2 ML AMP NEB SCH ×3 (08:28→20:43)
[2018-11-30] MEDS: APIXABAN 5 MG TABLET PO SCH ×2 (08:56→21:34)
[2018-11-30] MEDS: FUROSEMIDE 20 MG INJ IV SCH (08:56)
[2018-11-30] MEDS: ATORVASTATIN 40 MG TAB PO SCH (08:56)
[2018-11-30] MEDS: CEFEPIME 1GM/50 ML (PMX) 50 ML IVPB SCH ×2 (08:57→21:39)
[2018-11-30] MEDS ORDERED: METHYLPREDNISOLONE 40 MG INJ IV SCH (09:00)
--- NOTE | 2018-11-30 10:08 | PN ---
Date/Time of Note Date/Time of Note DATE: 11/30/18 TIME: 10:02 Assessment/Plan VTE Prophylaxis Risk score (from Ns)>0 risk: 9 SCD applied (from Ns): Yes Pharmacological prophylaxis: apixaban Lines/Catheters IV Catheter Type (from Nrs): Peripheral IV Urinary Cath still in place: No Assessment/Plan Hospital Course S: no new complaints, continues to feel better O : Constitutional: alert, oriented, elderly, no distress, sitting in a chair at the edge of the bed Head: atraumatic, normocephalic Neck: non-tender, supple Respiratory: clear to auscultation, diminished Cardiovascular: regular rate and rhythm Gastrointestinal: S/ NT / ND / +BS Extremities: no edema, good radial pulses assessment and plan: 82 yo filipina female admitted and managed as follows: Acute resp failure s/p NIPPV 2/ #2 -improved, now doing well on 2L Healthcare associated pneumonia -continue current abx Chronic atrial fibrillation with good rate control Hypertension with good control History of CVA Chronic dyslipidemia on statin therapy Coronary artery disease s/p prev Stent Mild CHF -echo with abn ,diastolic function but preserved EF 55% -continue diuresis Hypokalemia -repleted Plan continue abx wean off O2 dc steroids continue diuresis PT eval dc planning Further interventions because Prophylaxis: Apixaban and Pepcid. Result Diagram: 11/30/185 11/30/18 0435 Results 24hrs Laboratory Tests Test 11/29/18 12:30 11/30/18 04:35 Urine Color YELLOW Urine Clarity CLEAR Urine pH 6.0 Urine Specific [place] 1.016 Urine Ketones NEGATIVE Urine Nitrite NEGATIVE Urine Bilirubin NEGATIVE Urine Urobilinogen NEGATIVE Urine Leukocyte Esterase NEGATIVE Urine Hemoglobin NEGATIVE Urine Glucose NEGATIVE Urine Total Protein NEGATIVE White Blood Count 9.4 # Red Blood Count 4.96 Hemoglobin 15.0 Hematocrit 46.8 Mean Corpuscular Volume 94.4 Mean Corpuscular Hemoglobin 30.2 Mean Corpuscular Hemoglobin Concent 32.1 Red Cell Distribution Width 14.1 Platelet Count 176 Mean Platelet Volume 11.7 H Immature Granulocytes % 0.400 Neutrophils % 87.5 H Lymphocytes % 6.0 L Monocytes % 6.0 Eosinophils % 0.0 Basophils % 0.1 Nucleated Red Blood Cells % 0.0 Immature Granulocytes # 0.040 H Neutrophils # 8.2 H Lymphocytes # 0.6 L Monocytes # 0.6 Eosinophils # 0.0 Basophils # 0.0 Nucleated Red Blood Cells # 0.0 Sodium Level 140 Potassium Level 4.8 Chloride Level 107 Carbon Dioxide Level 25 Anion Gap 8 Blood Urea Nitrogen 18 Creatinine 0.47 Est Glomerular Filtrat Rate mL/min Glucose Level 136 Calcium Level 10.0 Phosphorus Level 3.2 Magnesium Level 2.1 Exam/Review of Systems Exam Vitals Vital Signs Date Temp Pulse Resp B/P (MAP) Pulse Ox O2 O2 Flow FiO2 Time Delivery Rate 11/30/18 95 164/87 08:50 (112) 11/30/18 18 90 21 08:29 11/30/18 2.0 08:29 11/30/18 97.9 08:03 11/29/18 Nasal 23:46 Cannula Intake and Output 11/29/18 11/29/18 11/30/18 1515:00 23:00 07:00 IntakeIntake Total 100 ml 530 ml 250 ml OutputOutput Total 500 ml BalanceBalance -400 ml 530 ml 250 ml Results Results 24hrs Laboratory Tests Test 11/29/18 12:30 11/30/18 04:35 Urine Color YELLOW Urine Clarity CLEAR Urine pH 6.0 Urine Specific [place] 1.016 Urine Ketones NEGATIVE Urine Nitrite NEGATIVE Urine Bilirubin NEGATIVE Urine Urobilinogen NEGATIVE Urine Leukocyte Esterase NEGATIVE Urine Hemoglobin NEGATIVE Urine Glucose NEGATIVE Urine Total Protein NEGATIVE White Blood Count 9.4 # Red Blood Count 4.96 Hemoglobin 15.0 Hematocrit 46.8 Mean Corpuscular Volume 94.4 Mean Corpuscular Hemoglobin 30.2 Mean Corpuscular Hemoglobin Concent 32.1 Red Cell Distribution Width 14.1 Platelet Count 176 Mean Platelet Volume 11.7 H Immature Granulocytes % 0.400 Neutrophils % 87.5 H Lymphocytes % 6.0 L Monocytes % 6.0 Eosinophils % 0.0 Basophils % 0.1 Nucleated Red Blood Cells % 0.0 Immature Granulocytes # 0.040 H Neutrophils # 8.2 H Lymphocytes # 0.6 L Monocytes # 0.6 Eosinophils # 0.0 Basophils # 0.0 Nucleated Red Blood Cells # 0.0 Sodium Level 140 Potassium Level 4.8 Chloride Level 107 Carbon Dioxide Level 25 Anion Gap 8 Blood Urea Nitrogen 18 Creatinine 0.47 Est Glomerular Filtrat Rate mL/min Glucose Level 136 Calcium Level 10.0 Phosphorus Level 3.2 Magnesium Level 2.1 Medications Medication Current Medications IV Flush (NS 3 ml) 3 ml PER PROTOCOL IV ; Start 11/29/18 at 03:00 Ondansetron HCl (Zofran Inj) 4 mg Q6H PRN IV NAUSEA/VOMITING; Start 11/29/18 at 03:00 Acetaminophen (Tylenol Tab) 650 mg Q6H PRN PO .PAIN 1-3 OR TEMP Last administered on 11/29/18 23:20; Admin Dose 650 MG; Start 11/29/18 at 03:00 Albuterol/ Ipratropium (Duoneb) 3 ml Q2H RESP THERAPY PRN HHN SHORTNESS OF BREATH Last administered on 11/29/18 17:34; Admin Dose 3 ML; Start 11/29/18 at 03:00 Apixaban (Eliquis) 5 mg BID PO Last administered on 11/30/18 08:56; Admin Dose 5 MG; Start 11/29/18 at 09:00 Atorvastatin Calcium (Lipitor) 40 mg DAILY PO Last administered on 11/30/18 08:56; Admin Dose 40 MG; Start 11/29/18 at 09:00 Cefepime HCl 50 ml @ 100 mls/hr Q12 IVPB Last administered on 11/30/18 08:57; Admin Dose 100 MLS/HR; Start 11/29/18 at 21:00 Vancomycin HCl (Vanco Iv Per Pharmacy) VANCOMYCIN PER PHARMACY PER PROTOCOL XX ; Start 11/29/18 at 08:30 Methylprednisolone Sodium Succinate (Solu-Medrol) 40 mg DAILY IV Last admini stered on 11/30/18 08:56; Admin Dose 40 MG; Start 11/30/18 at 09:00 Furosemide (Lasix) 20 mg DAILY IV Last administered on 11/30/18 08:56; Admin Dose 20 MG; Start 11/30/18 at 09:00 Arformoterol Tartrate (Brovana (Neb)) 2 ml Q12H RESP THERAPY NEB Last administered on 11/30/18 08:28; Admin Dose 2 ML; Start 11/29/18 at 09:30 Vancomycin HCl 250 ml @ 125 mls/hr Q24H IVPB Last administered on 11/29/18 21:56; Admin Dose 125 MLS/HR; Start 11/29/18 at 22:00 YVROSE BARAJAS Nov 30, 2018 10:08
--- NOTE | 2018-11-30 10:45 | CONS ---
Assessment/Plan Assessment/Plan Assessment/Plan (Daily) Assessment and recommendations; next 1. Patient admitted for left sided mid lung field community acquired pneumonia with recent admission at [facility] 2 weeks ago. Increasing risk of staph aureus infection. 2. Pulmonary fibrosis. 3. Chronic atrial fibrillation. 4. History of hypertension. Continue current supportive care. Obtain follow-up chest x-ray in 48 hours. Patient has been weaned off oxygen and has stable O2 saturation on room air. Consultation Date/Type/Reason Admit Date/Time Nov 29, 2018 at 02:18 Date of Consultation: Nov 30, 2018 Type of Consult Pulmonary Patient is a 82-year-old lady who came into the hospital with a few days history of shortness of breath and chest congestion. Upon evaluation a chest x-ray was done which is showing left midlung infiltrate. Patient has been started on appropriate antimicrobial regimen with significant improvement in symptoms. Patient denies any high fever, chest pain, chills, body aches or myalgias. Past medical history; 1. History of pulmonary fibrosis. 2. Recent admission at [facility] 2 weeks ago for bronchitis symptoms. 3. History of chronic atrial fibrillation. 4. Hypertension. 5. Asthma. Medications; reviewed. Allergies; as outlined above. Social history; patient never smoked. Family history; noncontributory. Occupational history; patient has been a housewife. Review of systems; denies any headache, visual changes, sinus symptoms, postnasal drip. Any chest pain, wheezing, compress very scant cough. Denies any abdominal pain, nausea or vomiting. Denies any edema orthopnea PND any GI or urinary symptoms. General exam; elderly lady, awake alert, currently in no distress. Date/Time of Note DATE: 11/30/18 TIME: 10:42 Past Medical History Medical History: other (Alprazolam is anicteric with clear see HPI) Home Meds Active Scripts Azithromycin* (Azithromycin*) 250 Mg Tablet, 250 MG PO DAILY for 5 Days, #5 TAB Prov:KIMMIE JOHNSON S. 10/14/18 Albuterol Sulfate* (Albuterol Sulfate* Neb) 0.083%-3 Ml Neb, 1.25 MG NEB Q3H PRN for WHEEZING AND SOB, #60 VIAL 2 Refills Prov:KIMMIE JOHNSON S. 10/14/18 Reported Medications Ascorbic Acid* (Vitamin C*) 500 Mg Capsule.sa, 500 MG PO DAILY, CAP 10/13/18 Multivits-Min/Iron/FA/Lutein (Centrum Silver Women Tablet) 1 Each Tablet, 1 EACH PO DAILY, TAB 10/13/18 [place]-3 Fatty Acids/Fish Oil (Fish Oil 1,000 mg Capsule) 1 Each Capsule, 1 EACH PO, CAP 10/13/18 Fluticasone/Vilanterol (Breo Ellipta 200-25 Mcg INH) 1 Each Blst.w.dev, 1 PUFF INHALATION DAILY, #1 INHALER 10/13/18 Apixaban* (Eliquis*) 5 Mg Tablet, 5 MG PO BID for 30 Days, #60 TAKE 1 TABLET BY MOUTH TWICE A DAY 10/13/18 Atorvastatin* (Atorvastatin*) 40 Mg Tablet, 40 MG PO DAILY for 30 Days, #30 TAKE 1 TABLET BY MOUTH EVERY DAY 10/13/18 Losartan Potassium* (Losartan Potassium*) 25 Mg Tablet, 100 MG PO DAILY for 30 Days, #30 TAKE 1 TABLET BY MOUTH EVERY DAY 10/13/18 Furosemide* (Furosemide*) 20 Mg Tablet, 20 MG PO DAILY for 30 Days, #30 10/13/18 Diltiazem Hcl (Diltiazem Er) 180 Mg Capsule.sa, 180 MG PO DAILY TAKE ONE CAPSULE BY MOUTH DAILY 10/13/18 Albuterol Sulfate* (Ventolin HFA*) 18 Gm Hfa.aer.ad, 2 PUFF INHALATION Q4H, #1 INHALER 10/13/18 Medications Current Medications IV Flush (NS 3 ml) 3 ml PER PROTOCOL IV ; Start 11/29/18 at 03:00 Ondansetron HCl (Zofran Inj) 4 mg Q6H PRN IV NAUSEA/VOMITING; Start 11/29/18 at 03:00 Acetaminophen (Tylenol Tab) 650 mg Q6H PRN PO .PAIN 1-3 OR TEMP Last administered on 11/29/18at 23:20; Admin Dose 650 MG; Start 11/29/18 at 03:00 Albuterol/ Ipratropium (Duoneb) 3 ml Q2H RESP THERAPY PRN HHN SHORTNESS OF BREATH Last administered on 11/29/18at 17:34; Admin Dose 3 ML; Start 11/29/18 at 03:00 Apixaban (Eliquis) 5 mg BID PO Last administered on 11/30/18 08:56; Admin Dose 5 MG; Start 11/29/18 at 09:00 Atorvastatin Calcium (Lipitor) 40 mg DAILY PO Last administered on 11/30/18 08:56; Admin Dose 40 MG; Start 11/29/18 at 09:00 Cefepime HCl 50 ml @ 100 mls/hr Q12 IVPB Last administered on 11/30/18 08:57; Admin Dose 100 MLS/HR; Start 11/29/18 at 21:00 Vancomycin HCl (Vanco Iv Per Pharmacy) VANCOMYCIN PER PHARMACY PER PROTOCOL XX ; Start 11/29/18 at 08:30 Furosemide (Lasix) 20 mg DAILY IV Last administered on 11/30/18 08:56; Admin Dose 20 MG; Start 11/30/18 at 09:00 Arformoterol Tartrate (Brovana (Neb)) 2 ml Q12H RESP THERAPY NEB Last administered on 11/30/18 08:28; Admin Dose 2 ML; Start 11/29/18 at 09:30 Vancomycin HCl 250 ml @ 125 mls/hr Q24H IVPB Last administered on 11/29/18 21:56; Admin Dose 125 MLS/HR; Start 11/29/18 at 22:00 Allergies: Coded Allergies: lisinopril (Verified Allergy, Unknown, 10/12/18) Past Surgical History Past Surgical Hx: other (See HPI) Social History Alcohol Use: none Smoking Status: Never smoker Drug Use: none Exam/Review of Systems Exam Vitals Vital Signs Date Temp Pulse Resp B/P (MAP) Pulse Ox O2 O2 Flow FiO2 Time Delivery Rate 11/30/18 83 179/83 10:40 (115) 11/30/18 18 90 21 08:29 11/30/18 2.0 08:29 11/30/18 97.9 08:03 11/29/18 Nasal 23:46 Cannula Intake and Output 11/29/18 11/29/18 11/30/18 1515:00 23:00 07:00 IntakeIntake Total 100 ml 530 ml 250 ml OutputOutput Total 500 ml BalanceBalance -400 ml 530 ml 250 ml Exam H EENT exam; supple neck, no JVD. No lymphadenopathy. Midline trachea. No thyromegaly. Pharynx is clear. Patient has dentures in place. Chest exam; diminished breath sounds bilaterally. No added sounds. S1-S2 audible, no murmurs. Regular rhythm. Abdomen exam; soft, nontender. No organomegaly. Bowel sounds audible. Extremity exam; no peripheral edema or clubbing. Patient does have patchy ecchymosis. ACUTE DIALYSIS REGISTERED NURSE exam; no focal deficit. Results Result Diagram: 11/30/18 0435 11/30/18 0435 Results 24hrs Laboratory Tests Test 11/29/18 12:30 11/30/18 04:35 Urine Color YELLOW Urine Clarity CLEAR Urine pH 6.0 Urine Specific [place] 1.016 Urine Ketones NEGATIVE Urine Nitrite NEGATIVE Urine Bilirubin NEGATIVE Urine Urobilinogen NEGATIVE Urine Leukocyte Esterase NEGATIVE Urine Hemoglobin NEGATIVE Urine Glucose NEGATIVE Urine Total Protein NEGATIVE White Blood Count 9.4 # Red Blood Count 4.96 Hemoglobin 15.0 Hematocrit 46.8 Mean Corpuscular Volume 94.4 Mean Corpuscular Hemoglobin 30.2 Mean Corpuscular Hemoglobin Concent 32.1 Red Cell Distribution Width 14.1 Platelet Count 176 Mean Platelet Volume 11.7 H Immature Granulocytes % 0.400 Neutrophils % 87.5 H Lymphocytes % 6.0 L Monocytes % 6.0 Eosinophils % 0.0 Basophils % 0.1 Nucleated Red Blood Cells % 0.0 Immature Granulocytes # 0.040 H Neutrophils # 8.2 H Lymphocytes # 0.6 L Monocytes # 0.6 Eosinophils # 0.0 Basophils # 0.0 Nucleated Red Blood Cells # 0.0 Sodium Level 140 Potassium Level 4.8 Chloride Level 107 Carbon Dioxide Level 25 Anion Gap 8 Blood Urea Nitrogen 18 Creatinine 0.47 Est Glomerular Filtrat Rate mL/min Glucose Level 136 Calcium Level 10.0 Phosphorus Level 3.2 Magnesium Level 2.1 Medications Medication Current Medications IV Flush (NS 3 ml) 3 ml PER PROTOCOL IV ; Start 11/29/18 at 03:00 Ondansetron HCl (Zofran Inj) 4 mg Q6H PRN IV NAUSEA/VOMITING; Start 11/29/18 at 03:00 Acetaminophen (Tylenol Tab) 650 mg Q6H PRN PO .PAIN 1-3 OR TEMP Last administered on 11/29/18at 23:20; Admin Dose 650 MG; Start 11/29/18 at 03:00 Albuterol/ Ipratropium (Duoneb) 3 ml Q2H RESP THERAPY PRN HHN SHORTNESS OF BREATH Last administered on 11/29/18 17:34; Admin Dose 3 ML; Start 11/29/18 at 03:00 Apixaban (Eliquis) 5 mg BID PO Last administered on 11/30/18 08:56; Admin Dose 5 MG; Start 11/29/18 at 09:00 Atorvastatin Calcium (Lipitor) 40 mg DAILY PO Last administered on 11/30/18 08:56; Admin Dose 40 MG; Start 11/29/18 at 09:00 Cefepime HCl 50 ml @ 100 mls/hr Q12 IVPB Last administered on 11/30/18 08:57; Admin Dose 100 MLS/HR; Start 11/29/18 at 21:00 Vancomycin HCl (Vanco Iv Per Pharmacy) VANCOMYCIN PER PHARMACY PER PROTOCOL XX ; Start 11/29/18 at 08:30 Furosemide (Lasix) 20 mg DAILY IV Last administered on 11/30/18 08:56; Admin Dose 20 MG; Start 11/30/18 at 09:00 Arformoterol Tartrate (Brovana (Neb)) 2 ml Q12H RESP THERAPY NEB Last administered on 11/30/18 08:28; Admin Dose 2 ML; Start 11/29/18 at 09:30 Vancomycin HCl 250 ml @ 125 mls/hr Q24H IVPB Last administered on 11/29/18 21:56; Admin Dose 125 MLS/HR; Start 11/29/18 at 22:00 RAJINDER RUTHERFORD Nov 30, 2018 10:45
[2018-11-30] MEDS ORDERED: hydrALAzine 20 MG INJ IV PRN (14:30)
[2018-11-30] MEDS: MULTIVITAMINS/MINERALS TAB PO SCH (14:43)
[2018-11-30] MEDS: LOSARTAN 50 MG TAB PO SCH (14:43)
[2018-11-30] MEDS: DILTIAZEM (CD) 180 MG CAP PO SCH (14:43)
[2018-11-30] MEDS: ASCORBIC ACID 500 MG TAB PO SCH (14:43)
[2018-11-30] MEDS: VANCOMYCIN 1 GM 250 ML IVPB SCH (22:23)
[2018-12-01 02:17] VITALS: BP 148/80; PULSE 88; RESP 18
[2018-12-01 08:07] VITALS: BP 148/75; PULSE 86; RESP 19
[2018-12-01] MEDS: ARFORMOTEROL TARTRATE 15MCG/2 ML AMP NEB SCH ×2 (08:18→20:45)
[2018-12-01] MEDS: ATORVASTATIN 40 MG TAB PO SCH (08:49)
[2018-12-01] MEDS: ASCORBIC ACID 500 MG TAB PO SCH (08:50)
[2018-12-01] MEDS: APIXABAN 5 MG TABLET PO SCH ×2 (08:50→21:59)
[2018-12-01] MEDS: LOSARTAN 50 MG TAB PO SCH (08:50)
[2018-12-01] MEDS: MULTIVITAMINS/MINERALS TAB PO SCH (08:50)
[2018-12-01] MEDS: DILTIAZEM (CD) 180 MG CAP PO SCH (08:50)
[2018-12-01] MEDS: FUROSEMIDE 20 MG INJ IV SCH (08:51)
[2018-12-01] MEDS: CEFEPIME 1GM/50 ML (PMX) 50 ML IVPB SCH ×2 (08:52→21:58)
[2018-12-01] MEDS ORDERED: FLUTICASONE/VILANTEROL 200-25 INH DEVICE INH SCH (09:00)
--- NOTE | 2018-12-01 10:40 | CONS ---
Assessment/Plan Assessment/Plan Assessment/Plan (Daily) Chest x-ray from today showing significant improvement in left perihilar infiltrate. Assessment and recommendations; 1. Patient with history of pulmonary fibrosis admitted with community acquired pneumonia involving left perihilar area with significant clinical and radiological improvement. 2. Mild persistent wheezing. 3. History of chronic atrial fibrillation. 4. History of hypertension. Continue current supportive care. Patient responding well to current treatment regimen. Consultation Date/Type/Reason Admit Date/Time Nov 29, 2018 at 02:18 Initial Consult Date 11/30/18 Type of Consult Pulmonary Patient is a 82-year-old lady who came into the hospital with a few days history of shortness of breath and chest congestion. Upon evaluation a chest x-ray was done which is showing left midlung infiltrate. Patient has been started on appropriate antimicrobial regimen with significant improvement in symptoms. Patient denies any high fever, chest pain, chills, body aches or myalgias. Past medical history; 1. History of pulmonary fibrosis. 2. Recent admission at [facility] 2 weeks ago for bronchitis symptoms. 3. History of chronic atrial fibrillation. 4. Hypertension. 5. Asthma. Medications; reviewed. Allergies; as outlined above. Social history; patient never smoked. Family history; noncontributory. Occupational history; patient has been a housewife. Review of systems; denies any headache, visual changes, sinus symptoms, postnasal drip. Any chest pain, wheezing, compress very scant cough. Denies any abdominal pain, nausea or vomiting. Denies any edema orthopnea PND any GI or urinary symptoms. General exam; elderly lady, awake alert, currently in no distress. Date/Time of Note DATE: 12/01/18 TIME: 10:38 24 HR Interval Summary Free Text/Dictation Patient's condition is stable. Complains of very mild wheezing. Because of scant cough. Denies any sputum production or hemoptysis. Any chest pain or fever. General exam; elderly lady, awake alert, currently in no distress. Exam/Review of Systems Exam Vitals Vital Signs Date Temp Pulse Resp B/P (MAP) Pulse Ox O2 O2 Flow FiO2 Time Delivery Rate 12/01/18 2.0 08:18 12/01/18 70 16 98 Nasal 08:18 Cannula 12/01/18 98.9 148/75 08:07 (99) 11/30/18 30 23:06 Intake and Output 11/30/18 11/30/18 12/01/18 1515:00 23:00 07:00 IntakeIntake Total 650 ml 770 ml 490 ml OutputOutput Total 1900 ml 700 ml 1 ml BalanceBalance -1250 ml 70 ml 489 ml Exam HEENT exam; supple neck, no JVD. No lymphadenopathy. Midline trachea. No thyromegaly. Patient has dentures in place. Chest exam; minimal bilateral expiratory wheezing. S1-S2 audible, no murmurs. Regular rhythm. Abdomen exam; soft, no organomegaly. Nontender. Bowel sounds are audible. Extremity exam; no peripheral edema or clubbing. RESPIRATORY THERAPY ASSISTANT exam; no focal deficit. Results Result Diagram: 12/01/18 0505 12/01/18 0505 Results 24hrs Laboratory Tests Test 12/01/18 05:05 White Blood Count 11.6 #H Red Blood Count 4.94 Hemoglobin 15.1 Hematocrit 45.5 Mean Corpuscular Volume 92.1 Mean Corpuscular Hemoglobin 30.6 Mean Corpuscular Hemoglobin Concent 33.2 Red Cell Distribution Width 14.4 Platelet Count 202 Mean Platelet Volume 11.1 H Immature Granulocytes % 0.300 Neutrophils % 84.1 H Lymphocytes % 6.5 L Monocytes % 9.0 Eosinophils % 0.0 Basophils % 0.1 Nucleated Red Blood Cells % 0.0 Immature Granulocytes # 0.040 H Neutrophils # 9.8 H Lymphocytes # 0.8 Monocytes # 1.1 H Eosinophils # 0.0 Basophils # 0.0 Nucleated Red Blood Cells # 0.0 Sodium Level 141 Potassium Level 4.4 Chloride Level 106 Carbon Dioxide Level 29 Anion Gap 6 Blood Urea Nitrogen 16 Creatinine 0.49 Est Glomerular Filtrat Rate mL/min Glucose Level 114 Calcium Level 9.7 Magnesium Level 2.1 Medications Medication Current Medications IV Flush (NS 3 ml) 3 ml PER PROTOCOL IV ; Start 11/29/18 at 03:00 Ondansetron HCl (Zofran Inj) 4 mg Q6H PRN IV NAUSEA/VOMITING; Start 11/29/18 at 03:00 Acetaminophen (Tylenol Tab) 650 mg Q6H PRN PO .PAIN 1-3 OR TEMP Last administer ed on 11/29/18at 23:20; Admin Dose 650 MG; Start 11/29/18 at 03:00 Albuterol/ Ipratropium (Duoneb) 3 ml Q2H RESP THERAPY PRN HHN SHORTNESS OF BREATH Last administered on 11/29/18 17:34; Admin Dose 3 ML; Start 11/29/18 at 03:00 Apixaban (Eliquis) 5 mg BID PO Last administered on 12/01/18 08:50; Admin Dose 5 MG; Start 11/29/18 at 09:00 Atorvastatin Calcium (Lipitor) 40 mg DAILY PO Last administered on 12/01/18 08:49; Admin Dose 40 MG; Start 11/29/18 at 09:00 Cefepime HCl 50 ml @ 100 mls/hr Q12 IVPB Last administered on 12/01/18 08:52; Admin Dose 100 MLS/HR; Start 11/29/18 at 21:00 Vancomycin HCl (Vanco Iv Per Pharmacy) VANCOMYCIN PER PHARMACY PER PROTOCOL XX ; Start 11/29/18 at 08:30 Furosemide (Lasix) 20 mg DAILY IV Last administered on 12/01/18 08:51; Admin Dose 20 MG; Start 11/30/18 at 09:00 Arformoterol Tartrate (Brovana (Neb)) 2 ml Q12H RESP THERAPY NEB Last administered on 12/01/18 08:18; Admin Dose 2 ML; Start 11/29/18 at 09:30 Vancomycin HCl 250 ml @ 125 mls/hr Q24H IVPB Last administered on 11/30/18 22:23; Admin Dose 125 MLS/HR; Start 11/29/18 at 22:00 Hydralazine HCl (Apresoline) 10 mg Q6H PRN IV sbp>160mmhg; Start 11/30/18 at 14:30 Ascorbic Acid (Vitamin C) 500 mg DAILY PO Last administered on 12/01/18 08:50; Admin Dose 500 MG; Start 11/30/18 at 14:30 Fluticasone/ Vilanterol (Breo Ellipta 200-25 Mcg Inh) 1 inh DAILY INH Last administered on 12/01/18 08:51; Admin Dose 1 INH; Start 12/01/18 at 09:00 Losartan Potassium (Cozaar) 100 mg DAILY PO Last administered on 12/01/18 08:50; Admin Dose 100 MG; Start 11/30/18 at 14:30 Diltiazem HCl (Cardizem Cd) 180 mg DAILY PO Last administered on 12/01/18at 08:50; Admin Dose 180 MG; Start 11/30/18 at 14:30 Multivitamins/ Minerals (Theragran-M) 1 tab DAILY PO Last administered on 12/01/18at 08:50; Admin Dose 1 TAB; Start 11/30/18 at 14:30 RAJINDER RUTHERFORD December 01, 2018 10:40
[2018-12-01] MEDS ORDERED: FURO-109 PO (10:46)
[2018-12-01] MEDS ORDERED: POTA8CAP PO (10:46)
--- NOTE | 2018-12-01 10:48 | PDOCDIS ---
Discharge Instructions CONDITION [id number] Patient Condition: [id number] Stable HOME CARE INSTRUCTIONS: [id number] Diet Instructions: [id number] Low Fat /Cholesterol ACTIVITY: [id number] Activity Restrictions: [id number] Slowly Increase Activity Rest between Activity FOLLOW UP/APPOINTMENTS Follow-up Plan 1. Followup with PCP in the next week to ensure complete resolution of pneumonia 2. You will also need to followup with a tobacco blender and tripper you may followup with Dr Lanza for Pulmonary "(lungs) f/u with the pulmunologist Dr Lanza Name, Degree : Bartolo Lanza MD Specialty : Critical Care Medicine Office Address : [address] [place] [address] Office Office YVROSE BARAJAS December 01, 2018 10:48
[2018-12-01] MEDS ORDERED: ALBUTEROL/IPRATROPIUM (NEB) 3 ML AMP HHN SCH (11:00)
[2018-12-01 13:47] VITALS: BP 128/60; PULSE 86; RESP 16
[2018-12-01 20:01] VITALS: BP 136/61; PULSE 81; RESP 17
[2018-12-01] MEDS: BUDESONIDE (NEB) 0.25 MG/2 ML AMP HHN SCH (20:45)
[2018-12-01] MEDS: VANCOMYCIN 1 GM 250 ML IVPB SCH (22:27)
[2018-12-01 23:18] VITALS: PULSE 65
[2018-12-02 02:00] VITALS: BP 122/56; PULSE 53; RESP 17
--- NOTE | 2018-12-02 03:44 | DS ---
DATE OF ADMISSION: 11/29/2018 DATE OF DISCHARGE: 12/01/2018 FINAL DIAGNOSES: An 82-year-old Filipina female who presented to the emergency room with complaint of shortness of breath, brought in by her daughter. She was recently admitted and managed with similar a few weeks ago. She was managed as follows. 1. Acute respiratory failure, status post short course of noninvasive positive pressure ventilation secondary to #2 that is improved, patient is stable on room air intermittently, also requiring 2 liters of oxygen intermittently. 2. Healthcare-associated pneumonia, improved on antibiotic. 3. Paroxysmal atrial fibrillation, rate controlled. 4. Hypertension with improved control. 5. History of cerebrovascular accident. 6. Congestive heart failure with diastolic dysfunction, but preserved EF with a mild exacerbation. 7. Coronary artery disease, status post previous stenting. 8. History of dyslipidemia, on statin therapy. 9. Steroid-induced leukocytosis. 10. Chronic pulmonary fibrosis CONSULTANTS ON THE CASE: Dr. Romeo Sutton for pulmonary. INTERVENTIONS: The patient had a chest x-ray that showed patchy consolidation in left mid lung lobe concerning for pneumonia, chronic scarring on the right lung, cardiomegaly with coronary artery stent. On her prior hospitalization, patient did have a chest CT in October which showed bronchopneumonia at that time with chronic scarring, bronchiectasis, possible pulmonary artery hypertension. SHORT HOSPITALIZATION COURSE: Full details are in the chart for review. In summary, a very pleasant 82-year-old female who had presented with shortness of breath and was admitted and required a short course of BiPAP. She was treated with diuresis, short course of steroids, antibiotic therapy and has done well. At this time, she is doing much better. She is ambulating in the room. She has been seen by physical therapy. Their recommendations are for home discharge with family assistance as needed and at this time, though she is pending a followup chest x-ray and we are going to see how she does off of oxygen therapy. If she does well, she will be discharged home to the care of her family. DISCHARGE MEDICATIONS: For a complete list of her discharge medications, please review her chart. DISCHARGE ACTIVITY: As tolerated. FOLLOWUP: The patient is recommended to follow up with primary care doctor within the next 2 weeks to ensure continued resolution of symptoms and she is also recommended to request a pulmonary referral for continued outpatient followup with motorcoach driver. Dr. Sutton and Dr. Lanza this admission has been provided to her at this time. She can follow up with them if insurance approves it. DISCHARGE DIET: The patient is recommended to maintain a cardiac diet. Time spent in discharge coordination more than a half hour. Dictated By: YVROSE BARAJAS MD BA/NTS Conf#: [id number] DID#: [id number] CC: BIBIANA MARTINEZ MD;*EndCC* MTDD
[2018-12-02 07:29] VITALS: BP 144/73; PULSE 83; RESP 18
[2018-12-02] MEDS: BUDESONIDE (NEB) 0.25 MG/2 ML AMP HHN SCH (08:34)
[2018-12-02] MEDS: ARFORMOTEROL TARTRATE 15MCG/2 ML AMP NEB SCH (08:34)
[2018-12-02] MEDS: APIXABAN 5 MG TABLET PO SCH (09:04)
[2018-12-02] MEDS: CEFEPIME 1GM/50 ML (PMX) 50 ML IVPB SCH (09:04)
[2018-12-02] MEDS: LOSARTAN 50 MG TAB PO SCH (09:05)
[2018-12-02] MEDS: ATORVASTATIN 40 MG TAB PO SCH (09:05)
[2018-12-02] MEDS: MULTIVITAMINS/MINERALS TAB PO SCH (09:05)
[2018-12-02] MEDS: DILTIAZEM (CD) 180 MG CAP PO SCH (09:05)
[2018-12-02] MEDS: FUROSEMIDE 20 MG INJ IV SCH (09:05)
[2018-12-02] MEDS: ASCORBIC ACID 500 MG TAB PO SCH (09:05)
[2018-12-02] MEDS ORDERED: VANCOMYCIN 750 MG (PMX) 250 ML IVPB SCH (11:00)
[2018-12-02] MEDS: ALBUTEROL/IPRATROPIUM (NEB) 3 ML AMP HHN SCH ×3 (11:00→14:59)
--- NOTE | 2018-12-02 12:13 | DS ---
Date/Time of Note Date/Time of Note DATE: 12/02/18 TIME: 12:09 Discharge Summary Admission/Discharge Info Admit Date/Time Nov 29, 2018 at 02:18 Discharge Date/Time Discharge Diagnosis FINAL DIAGNOSES: An 82-year-old Filipina female who presented to the emergency room with complaint of shortness of breath, brought in by her daughter. She was recently admitted and managed with similar a few weeks ago. She was managed as follows. 1. Acute respiratory failure, status post short course of noninvasive positive pressure ventilation secondary to #2 that is improved, patient is stable on room air intermittently, also requiring 2 liters of oxygen intermittently. 2. Healthcare-associated pneumonia, improved on antibiotic. 3. Paroxysmal atrial fibrillation, rate controlled. 4. Hypertension with improved control. 5. History of cerebrovascular accident. 6. Congestive heart failure with diastolic dysfunction, but preserved EF with a mild exacerbation. 7. Coronary artery disease, status post previous stenting. 8. History of dyslipidemia, on statin therapy. 9. Steroid-induced leukocytosis. 10. Chronic pulmonary fibrosis Patient Condition: Stable Consults CONSULTANTS ON THE CASE: Dr. Romeo Sutton for pulmonary. Procedures INTERVENTIONS: The patient had a chest x-ray that showed patchy consolidation in left mid lung lobe concerning for pneumonia, chronic scarring on the right lung, cardiomegaly with coronary artery stent. On her prior hospitalization, patient did have a chest CT in October which showed bronchopneumonia at that time with chronic scarring, bronchiectasis, possible pulmonary artery hypertension. . Hospital Course Full details are in the chart for review. In summary, a very pleasant 82-year-old female who had presented with shortness of breath and was admitted and required a short course of BiPAP. She was treated with diuresis, short course of steroids, antibiotic therapy and has done well. At this time, she is doing much better. She is ambulating in the room. She has been seen by physical therapy. Their recommendations are for home discharge with family assistance as needed and at this time. Patient's discharge was held on 12/01/18 because she continued to have wheezing and productive cough and had previously failed outpatient oral abx therapy, hence at this time she will be discharged on IV abx with scheduled nedbulizer breathing tx with HH for nursing and PT> if we are able to arrnage all this, she will be discharged home today . . Please see chart for updated discharge medication list. . Home Meds Active Scripts Azithromycin* (Azithromycin*) 250 Mg Tablet, 250 MG PO DAILY for 5 Days, #5 TAB Prov:KIMMIE JOHNSON. 10/14/18 Albuterol Sulfate* (Albuterol Sulfate* Neb) 0.083%-3 Ml Neb, 1.25 MG NEB Q3H PRN for WHEEZING AND SOB, #60 VIAL 2 Refills Prov:KIMMIE JOHNSON S. 10/14/18 Reported Medications Ascorbic Acid* (Vitamin C*) 500 Mg Capsule.sa, 500 MG PO DAILY, CAP 10/13/18 Multivits-Min/Iron/FA/Lutein (Centrum Silver Women Tablet) 1 Each Tablet, 1 EACH PO DAILY, TAB 10/13/18 [place]-3 Fatty Acids/Fish Oil (Fish Oil 1,000 mg Capsule) 1 Each Capsule, 1 EACH PO, CAP 10/13/18 Fluticasone/Vilanterol (Breo Ellipta 200-25 Mcg INH) 1 Each Blst.w.dev, 1 PUFF INHALATION DAILY, #1 INHALER 10/13/18 Apixaban* (Eliquis*) 5 Mg Tablet, 5 MG PO BID for 30 Days, #60 TAKE 1 TABLET BY MOUTH TWICE A DAY 10/13/18 Atorvastatin* (Atorvastatin*) 40 Mg Tablet, 40 MG PO DAILY for 30 Days, #30 TAKE 1 TABLET BY MOUTH EVERY DAY 10/13/18 Losartan Potassium* (Losartan Potassium*) 25 Mg Tablet, 100 MG PO DAILY for 30 Days, #30 TAKE 1 TABLET BY MOUTH EVERY DAY 10/13/18 Furosemide* (Furosemide*) 20 Mg Tablet, 20 MG PO DAILY for 30 Days, #30 10/13/18 Diltiazem Hcl (Diltiazem Er) 180 Mg Capsule.sa, 180 MG PO DAILY TAKE ONE CAPSULE BY MOUTH DAILY 10/13/18 Albuterol Sulfate* (Ventolin HFA*) 18 Gm Hfa.aer.ad, 2 PUFF INHALATION Q4H, #1 I NHALER 10/13/18 Follow-up Plan 1. Followup with PCP/ pulmonary in the next week to ensure complete resolution of pneumonia 2. You will also need to followup with a delivery motorcycle driver and casting and pasting supervisor you may followup with Dr Lanza for Pulmonary "(lungs) f/u with the pulmunologist Dr Lanza Name, Degree : Bartolo Lanza MD Specialty : Critical Care Medicine Office Address : [address] [place] [address] [place] [address] Office Office Primary Care Provider Care Physician No Primary Time spent on discharge: > 30 minutes Pending Labs Laboratory Tests Test 12/01/18 21:07 12/02/18 05:28 Vancomycin Level Trough 6.7 ug/ml (10.0-20.0) White Blood Count 7.0 10^3/ul (4.8-10.8) Red Blood Count 4.94 10^6/ul (4.20-5.40) Hemoglobin 14.9 g/dl (12.0-16.0) Hematocrit 45.9 % (37.0-47.0) Mean Corpuscular Volume 92.9 fl (82.0-101.0) Mean Corpuscular Hemoglobin 30.2 pg (29.0-33.0) Mean Corpuscular 32.5 g/dl (32.0-37.0) Hemoglobin Concent Red Cell Distribution Width 14.4 % (11.5-14.5) Platelet Count 207 10^3/UL (140-415) Mean Platelet Volume 11.2 fl (7.4-10.4) Immature Granulocytes % 0.400 % (0.001-0.429) Neutrophils % 58.7 % (39.0-77.0) Lymphocytes % 25.3 % (15.0-51.0) Monocytes % 14.9 % (0.0-11.0) Eosinophils % 0.4 % (0.0-7.0) Basophils % 0.3 % (0.0-2.0) Nucleated Red Blood Cells % 0.0 /100WBC (0.0-0.0) Immature Granulocytes # 0.030 10^3/ul (0.0-0.031) Neutrophils # 4.1 10^3/ul (1.6-7.5) Lymphocytes # 1.8 10^3/ul (0.8-2.9) Monocytes # 1.0 10^3/ul (0.3-0.9) Eosinophils # 0.0 10^3/ul (0.0-0.5) Basophils # 0.0 10^3/ul (0.0-0.1) Nucleated Red Blood Cells # 0.0 10^3/ul (0.0-0.0) Sodium Level 140 mmol/L (135-144) Potassium Level 4.2 mmol/L (3.5-5.1) Chloride Level 103 mmol/L (97-110) Carbon Dioxide Level 30 mmol/L (21-31) Anion Gap 7 (5-13) Blood Urea Nitrogen 15 mg/dl (7-20) Creatinine 0.52 mg/dl (0.44-1.00) Est Glomerular Filtrat mL/min (>60) Rate mL/min Glucose Level 90 mg/dl (70-220) Calcium Level 9.6 mg/dl (8.4-10.2) YVROSE BARAJAS December 02, 2018 12:13
[2018-12-02] MEDS ORDERED: IPRA3AMP29 INHALATION (12:22)
[2018-12-02] MEDS ORDERED: CEFE1FRO IV (12:22)
[2018-12-02] MEDS ORDERED: BUDE0.25 HHN (12:22)
[2018-12-02] MEDS ORDERED: LACT1CAP57 PO (12:22)
[2018-12-02] MEDS ORDERED: CLIN300C10 PO (12:22)
[2018-12-02] MEDS ORDERED: BROVANA NEB (12:22)
--- NOTE | 2018-12-02 12:54 | CONS ---
Assessment/Plan Assessment/Plan Assessment/Plan (Daily) Assessment and recommendations; 1. Patient with history of pulmonary fibrosis admitted with left perihilar pneumonia with significant clinical and radiological improvement. 2. History of hypertension. 3. History of chronic atrial fibrillation. Continue current supportive care. Continue antibiotics for additional 48 hours. Consultation Date/Type/Reason Admit Date/Time Nov 29, 2018 at 02:18 Initial Consult Date 11/30/18 Type of Consult Pulmonary Patient is a 82-year-old lady who came into the hospital with a few days history of shortness of breath and chest congestion. Upon evaluation a chest x-ray was done which is showing left midlung infiltrate. Patient has been started on appropriate antimicrobial regimen with significant improvement in symptoms. Patient denies any high fever, chest pain, chills, body aches or myalgias. Past medical history; 1. History of pulmonary fibrosis. 2. Recent admission at [facility] ([place] 2 weeks ago for bronchitis symptoms. 3. History of chronic atrial fibrillation. 4. Hypertension. 5. Asthma. Medications; reviewed. Allergies; as outlined above. Social history; patient never smoked. Family history; noncontributory. Occupational history; patient has been a housewife. Review of systems; denies any headache, visual changes, sinus symptoms, postnasal drip. Any chest pain, wheezing, compress very scant cough. Denies any abdominal pain, nausea or vomiting. Denies any edema orthopnea PND any GI or urinary symptoms. General exam; elderly lady, awake alert, currently in no distress. Date/Time of Note DATE: 12/02/18 TIME: 12:52 24 HR Interval Summary Free Text/Dictation Patient's condition is stable. Remains awake and alert. Reports significant improvement in shortness of breath. Denies any wheezing. General exam; elderly woman, awake alert, currently no distress. Exam/Review of Systems Exam Vitals Vital Signs Date Temp Pulse Resp B/P (MAP) Pulse Ox O2 O2 Flow FiO2 Time Delivery Rate 12/02/18 97.6 83 18 144/73 94 07:29 (96) 12/02/18 2.0 01:34 12/01/18 30 23:18 12/01/18 Nasal 20:45 Cannula Intake and Output 12/01/18 12/01/18 12/02/18 1515:00 23:00 07:00 IntakeIntake Total 1010 ml 570 ml 250 ml OutputOutput Total 300 ml 300 ml BalanceBalance 710 ml 570 ml -50 ml Exam H EENT exam; supple neck, no JVD. No lymphadenopathy. Midline trachea. No thyromegaly. Patient has dentures in place. Chest exam; diminished but clear breath sounds. S1-S2 audible, no murmurs. Regular rhythm. Abdomen exam; soft, no organomegaly. Bowel sounds audible. Extremity exam; no peripheral edema. PET SITTER exam; no focal deficit. Results Result Diagram: 12/02/1852712/02/18527 Results 24hrs Laboratory Tests Test 12/01/18 21:07 12/02/18 05:28 Vancomycin Level Trough 6.7 L White Blood Count 7.0 # Red Blood Count 4.94 Hemoglobin 14.9 Hematocrit 45.9 Mean Corpuscular Volume 92.9 Mean Corpuscular Hemoglobin 30.2 Mean Corpuscular Hemoglobin Concent 32.5 Red Cell Distribution Width 14.4 Platelet Count 207 Mean Platelet Volume 11.2 H Immature Granulocytes % 0.400 Neutrophils % 58.7 Lymphocytes % 25.3 Monocytes % 14.9 H Eosinophils % 0.4 Basophils % 0.3 Nucleated Red Blood Cells % 0.0 Immature Granulocytes # 0.030 Neutrophils # 4.1 Lymphocytes # 1.8 Monocytes # 1.0 H Eosinophils # 0.0 Basophils # 0.0 Nucleated Red Blood Cells # 0.0 Sodium Level 140 Potassium Level 4.2 Chloride Level 103 Carbon Dioxide Level 30 Anion Gap 7 Blood Urea Nitrogen 15 Creatinine 0.52 Est Glomerular Filtrat Rate mL/min Glucose Level 90 Calcium Level 9.6 Medications Medication Current Medications IV Flush (NS 3 ml) 3 ml PER PROTOCOL IV ; Start 11/29/18 at 03:00 Ondansetron HCl (Zofran Inj) 4 mg Q6H PRN IV NAUSEA/VOMITING; Start 11/29/18 at 03:00 Acetaminophen (Tylenol Tab) 650 mg Q6H PRN PO .PAIN 1-3 OR TEMP Last administered on 11/29/18at 23:20; Admin Dose 650 MG; Start 11/29/18 at 03:00 Albuterol/ Ipratropium (Duoneb) 3 ml Q2H RESP THERAPY PRN HHN SHORTNESS OF BREATH Last administered on 11/29/18at 17:34; Admin Dose 3 ML; Start 11/29/18 at 03:00 Apixaban (Eliquis) 5 mg BID PO Last administered on 12/02/18 09:04; Admin Dose 5 MG; Start 11/29/18 at 09:00 Atorvastatin Calcium (Lipitor) 40 mg DAILY PO Last administered on 12/02/18 09:05; Admin Dose 40 MG; Start 11/29/18 at 09:00 Cefepime HCl 50 ml @ 100 mls/hr Q12 IVPB Last administered on 12/02/18 09:04; Admin Dose 100 MLS/HR; Start 11/29/18 at 21:00 Vancomycin HCl (Vanco Iv Per Pharmacy) VANCOMYCIN PER PHARMACY PER PROTOCOL XX ; Start 11/29/18 at 08:30 Furosemide (Lasix) 20 mg DAILY IV Last administered on 12/02/18 09:05; Admin Dose 20 MG; Start 11/30/18 at 09:00 Arformoterol Tartrate (Brovana (Neb)) 2 ml Q12H RESP THERAPY NEB Last administered on 12/02/18 08:34; Admin Dose 2 ML; Start 11/29/18 at 09:30 Hydralazine HCl (Apresoline) 10 mg Q6H PRN IV sbp>160mmhg; Start 11/30/18 at 14:30 Ascorbic Acid (Vitamin C) 500 mg DAILY PO Last administered on 12/02/18 09:05; Admin Dose 500 MG; Start 11/30/18 at 14:30 Losartan Potassium (Cozaar) 100 mg DAILY PO Last administered on 12/02/18 09:05; Admin Dose 100 MG; Start 11/30/18 at 14:30 Diltiazem HCl (Cardizem Cd) 180 mg DAILY PO Last administered on 12/02/18 09:05; Admin Dose 180 MG; Start 11/30/18 at 14:30 Multivitamins/ Minerals (Theragran-M) 1 tab DAILY PO Last administered on 12/02/18 09:05; Admin Dose 1 TAB; Start 11/30/18 at 14:30 Budesonide (Pulmicort (Neb)) 0.25 mg BID RESP THERAPY HHN Last administered on 12/02/18 08:34; Admin Dose 0.25 MG; Start 12/01/18 at 20:00 Vancomycin/Sodium Chloride 250 ml @ 125 mls/hr Q12H IVPB Last administered on 12/02/18at 11:44; Admin Dose 125 MLS/HR; Start 12/02/18 at 11:00 Albuterol/ Ipratropium (Duoneb) 3 ml Q6H RESP THERAPY N ; Start 12/02/18 at 11:00 RAJINDER RUTHERFORD December 02, 2018 12:54
[2018-12-02 15:46] VITALS: BP 126/94; PULSE 77; RESP 18
[2018-12-02] MEDS ORDERED: INHA-3 MC (16:24)
== END 2018-12-02 17:40 | disposition home health service (06) | DRG 193 ==
LOC: E/R 23:39 → ICU 11-29 02:18 → EDBEDREQ 11-29 02:21 → 2NE 11-29 04:20
PROVIDERS: ADMIT Internal Medicine; ATTEND Family Medicine
PROC: 5A09357 Assistance with Respiratory Ventilation, Less than 24 Consecutive Hours, Continuous Positive Airway Pressure (ICD-10-PCS; principal; 2018-11-29)
DX: J18.9 Pneumonia, unspecified organism (principal); J96.00 Acute respiratory failure, unspecified whether with hypoxia or hypercapnia; I50.33 Acute on chronic diastolic (congestive) heart failure; J84.10 Pulmonary fibrosis, unspecified; I11.0 Hypertensive heart disease with heart failure; I48.0 Paroxysmal atrial fibrillation; E78.5 Hyperlipidemia, unspecified; J45.909 Unspecified asthma, uncomplicated; I25.10 Atherosclerotic heart disease of native coronary artery without angina pectoris; E87.6 Hypokalemia; Y95 Nosocomial condition; Z95.5 Presence of coronary angioplasty implant and graft; Z86.11 Personal history of tuberculosis; Z86.73 Personal history of transient ischemic attack (TIA), and cerebral infarction without residual deficits
CPT/HCPCS: 36415; 36600; 71045; 71046; 80048; 80053; 80202; 81003; 82803; 83605; 83735; 83880; 84100; 84484; 85025; 85610; 85730; 87070; 87081; 93005; 93306; 94640; 94644; 94660; 94664; 96365; 96366; 96368; 96375; 97110; 97116; 97161; J0456; J0692; J1100; J1940; J2920; J3370; J3480

== ENCOUNTER 2018-12-04 00:29 | Inpatient (IN) | payer BC ==
[2018-12-04] VITALS (8 sets, daily range): BP systolic 106–142; BP diastolic 58–73; PULSE 70–90; RESP 18–19; Ht 160 cm; Wt 70.9 kg
[~2018-12-04] VITALS: Ht 160 cm; Wt 70.9 kg
[~2018-12-04 00:29] MED LIST changes: -ALBU2.5V3 NEB; -AZIT250T13 PO; +BROVANA NEB; +BUDE0.25 HHN; +CEFE1FRO IV; +CLIN300C10 PO; -FLUT1BLS INHALATION; +FURO-109 PO; -FURO20TA3 PO; +INHA-3 MC; +IPRA3AMP29 INHALATION; +LACT1CAP57 PO; +POTA8CAP PO
--- NOTE | 2018-12-04 01:19 | ERD ---
ER Documentation Chief Complaint Chief Complaint worsening SOB, discharged from hospital yest. no CP HPI This is an 82-year-old woman with a history of pulmonary fibrosis brought in by family member for shortness of breath and low oxygen saturation while trying to sleep at night. She was seen and evaluated as an inpatient in this hospital recently and discharged 4 days ago for similar symptoms and given prescriptions for budesonide pump and arformoterol, which is an outrageously priced long- acting bronchodilator for home nebulizer use. Family could not afford either of the medications and daughter was at the bedside states his insurance would not cover either of these medications. She is does not have home oxygen concentrator, nor does she have a CPAP machine to help her sleep at night. None of these issues were settled prior to discharge 4 days ago and next pulmonology appointment is scheduled in about 1 month. She had no vomiting no complaints of chest pain, no lethargy or changes in mental status. ROS All systems reviewed and are negative except as per history of present illness. Medications Home Meds Active Scripts Ibuprofen* (Motrin*) 400 Mg Tab, 400 MG PO Q8 PRN for PAIN AND/OR INFLAMMATION, #30 TAB Prov:FRANK KRISHNA MD 12/04/18 Albuterol Sulfate* (Proair HFA*) 8.5 Gm Hfa.aer.ad, 2 PUFF INH Q6H PRN for WHEEZING AND SOB, #1 INHALER Prov:FRANK KRISHNA MD 12/04/18 Naproxen* (Naprosyn*) 500 Mg Tablet, 500 MG PO BID PRN for PAIN AND/OR INFLAMMATION, #30 TAB Prov:FRANK KRISHNA MD 12/04/18 Inhaler, Assist Devices (Compact Space Chamber) 1 Each Spacer, EACH MC for to be used with inhalers, #1 Prov:YVROSE BARAJAS 12/02/18 Clindamycin Hcl* (Clindamycin Hcl*) 300 Mg Capsule, 300 MG PO Q8 for 10 Days, #30 CAP Prov:YVROSE BARAJAS 12/02/18 Ipratropium-Albuterol (Ipratropium-Albuterol) 0.5-3 Mg/3 Ml Ampul.neb, 3 ML INHALATION Q6 for 3 Days, #12 VIAL Prov:YVROSE BARAJAS 12/02/18 Arformoterol Tartrate* (Brovana* Neb) 2 Ml Nebu, 2 ML NEB Q12H RESP THERAPY, #60 VIAL 2 Refills Prov:YVROSE BARAJAS. 12/02/18 Budesonide* (Budesonide*) 0.25 Mg/2 Ml Ampul.neb, 0.25 MG HHN BID RESP THERAPY, #60 VIAL 2 Refills Prov:YVROSE BARAJAS. 12/02/18 Lactobacillus Rhamnosus* (Culturelle*) 1 Each Cap.sprink, 1 CAP PO BID, #20 CAP Prov:YVROSE BARAJAS . 12/02/18 Cefepime Hcl/Dextrose, Iso-Osm (Cefepime 1 Gm Injection) 1 Gm/50 Ml Froz.piggy, 1 GM IV Q12 for 10 Days, #20 DOSE Prov:YVROSE BARAJAS . 12/02/18 Potassium Chloride* (Potassium Chloride*) 8 Meq Capsule.er, 8 MEQ PO DAILY, #30 CAP Prov:YVROSE BARAJAS. 12/01/18 Furosemide* (Lasix*) 40 Mg Tablet, 40 MG PO DAILY, #30 TAB Prov:YVROSE BARAJAS . 12/01/18 Reported Medications Ascorbic Acid* (Vitamin C*) 500 Mg Capsule.sa, 500 MG PO DAILY, CAP 10/13/18 Multivits-Min/Iron/FA/Lutein (Centrum Silver Women Tablet) 1 Each Tablet, 1 EACH PO DAILY, TAB 10/13/18 [place]-3 Fatty Acids/Fish Oil (Fish Oil 1,000 mg Capsule) 1 Each Capsule, 1 EACH PO, CAP 10/13/18 Apixaban* (Eliquis*) 5 Mg Tablet, 5 MG PO BID for 30 Days, #60 TAKE 1 TABLET BY MOUTH TWICE A DAY 10/13/18 Atorvastatin* (Atorvastatin*) 40 Mg Tablet, 40 MG PO DAILY for 30 Days, #30 TAKE 1 TABLET BY MOUTH EVERY DAY 10/13/18 Losartan Potassium* (Losartan Potassium*) 25 Mg Tablet, 100 MG PO DAILY for 30 Days, #30 TAKE 1 TABLET BY MOUTH EVERY DAY 10/13/18 Diltiazem Hcl (Diltiazem Er) 180 Mg Capsule.sa, 180 MG PO DAILY TAKE ONE CAPSULE BY MOUTH DAILY 10/13/18 Albuterol Sulfate* (Ventolin HFA*) 18 Gm Hfa.aer.ad, 2 PUFF INHALATION Q4H, #1 INHALER 10/13/18 Discontinued Reported Medications Fluticasone/Vilanterol (Breo Ellipta 200-25 Mcg INH) 1 Each Blst.w.dev, 1 PUFF INHALATION DAILY, #1 INHALER 10/13/18 Furosemide* (Furosemide*) 20 Mg Tablet, 20 MG PO DAILY for 30 Days, #30 10/13/18 Discontinued Scripts Azithromycin* (Azithromycin*) 250 Mg Tablet, 250 MG PO DAILY for 5 Days, #5 TAB Prov:KIMMIE JOHNSON S. 10/14/18 Albuterol Sulfate* (Albuterol Sulfate* Neb) 0.083%-3 Ml Neb, 1.25 MG NEB Q3H PRN for WHEEZING AND SOB, #60 VIAL 2 Refills Prov:KIMMIE JOHNSON S. 10/14/18 Allergies Allergies: Coded Allergies: lisinopril (Verified Allergy, Unknown, 10/12/18) PMhx/Soc Paroxysmal atrial fibrillation, hypertension, history of stroke, CHF, CAD status post PCI and stent placement, dyslipidemia, chronic pulmonary fibrosis History of Surgery: Yes Anesthesia Reaction: No Hx Neurological Disorder: No Hx Respiratory Disorders: Yes Hx Cardiac Disorders: Yes Hx Psychiatric Problems: No Hx Miscellaneous Medical Probl: Yes (Afib, HTN, CVA, asthma, pulmonary fibrosis, recent hospitalization 2 weeks ) Hx Alcohol Use: No Hx Substance Use: No Hx Tobacco Use: No Physical Exam Vitals Vital Signs Date Temp Pulse Resp B/P (MAP) Pulse Ox O2 O2 Flow FiO2 Time Delivery Rate 12/04/18 91 22 97 21 01:56 12/04/18 95 22 150/78 98 Room Air 01:41 (102) 12/04/18 98.0 87 17 142/67 95 00:33 (92) Physical Exam GENERAL: Well-developed, well-nourished, dyspneic, afebrile NEURO: Alert and oriented 2, no focal deficits or facial asymmetry, able to answer simple questions CARDIAC: Regular rate and rhythm, no murmurs rubs or gallops LUNGS: Poor breath sounds bilaterally ABDOMEN: Soft nontender, no guarding, no rigidity, no rebound, no psoas sign no obturator sign. SKIN: Warm and dry to touch, no abrasions, contusions, or hematomas, no lacerations, no ecchymosis, no target lesions, and without ulcers EXTREMITIES: No clubbing cyanosis or edema, calves are bilaterally symmetrical, no Homans sign, no popliteal cord sign. Distal pulses equal and bilateral Results 24 hrs Laboratory Tests Test 12/04/18 01:44 Blood Gas Specimen Source Blood arterial Arterial Blood Date Drawn 12/04/2018 1:50:00 AM Arterial Blood pH (Temp corrected) 7.468 Arterial Blood pCO2 (Temp correct) 35.9 mmhg Arterial Blood pO2 (Temp corrected) 84.6 mmHG Arterial Blood HCO3 25.4 mmol/L Arterial Blood Base Excess 2.1 mmol/L Arterial Blood Oxygen Saturation 96.4 mmHG Jasvir Test ACCEPTAB Arterial Blood Gas Puncture Site Right Brachial Arterial Blood Carboxyhemoglobin 0.1 % Arterial Blood Methemoglobin 0.4 % Blood Gas A-a O2 Differential 22.1 mmHg Oxyhemoglobin Percent 95.9 % Blood Gas Temperature 37.0 C Blood Gas Modality ROOM AIR FiO2 21.0 % Blood Gas Notified Whom MM Blood Gas Notified Time 12/04/2018 1:59:00 AM Current Medications Medications Dose Sig/Shivam Start Time Status Last (Trade) Ordered Route PRN Stop Time Admin Dose Reason Admin Albuterol 10 mg ONCE STAT 12/04/18 DC 12/04/18 (Proventil INH 01:29 12/04/18 01:56 0.5% (Neb)) 01:30 Ipratropium 1 mg ONCE STAT 12/04/18 DC 12/04/18 [place] INH 01:29 12/04/18 01:56 (Atrovent 01:30 0.02% (Neb)) Procedures/MDM patient was placed on equipment monitor phototypesetting rhythm strip revealed a sinus rhythm at ab out 80 bpm with upright P and T waves. Patient was afebrile EKG performed, read by me revealed an atrial fibrillation rate controlled 84 bpm, normal axis, narrow QRS complex, no concerning ST elevations or depressions noted I administered albuterol 10 mg via nebulizer, ipratropium 1 mg via nebulizer ABG revealed a pH of 7.47, PCO2 36, PO2 85 Patient has severe pulmonary fibrosis and has difficulty breathing at nights. Despite sleeping on multiple pillows she develops dyspneic episodes and cannot sleep. She was sent home from [facility] with 2 separate prescriptions including budesonide which is at least $80 sanchez and something the patient's insurance does not cover, she was also written for a ridiculously priced long-acting medication that her insurance does not cover and costs over $1200. She was not sent home with an oxygen concentrator or CPAP and has no a ccess to these machines that may actually help her at night. Patient admitted to telemetry setting for continued bronchodilator therapy and more definitive case management work Departure Diagnosis: Primary Impression: Pulmonary fibrosis Condition: Good FRANK KRISHNA MD December 04, 2018 01:19
[2018-12-04] MEDS ORDERED: ALBUTEROL 0.5% (NEB) 2.5 MG/0.5 ML AMP INH STA (01:29)
[2018-12-04] MEDS ORDERED: IPRATROPIUM (NEB) 0.5 MG/2.5 ML AMP INH STA (01:29)
[2018-12-04] MEDS ORDERED: ALBU8.5H8 INH (01:59)
[2018-12-04] MEDS ORDERED: NAPR-985 PO (01:59)
[2018-12-04] MEDS ORDERED: IBUP-1561 PO (02:32)
[2018-12-04] MEDS ORDERED: ONDANSETRON 4 MG INJ IV PRN (05:30)
[2018-12-04] MEDS ORDERED: NACL 0.9% 3 ML SYG IV SCH (05:30)
[2018-12-04] MEDS ORDERED: ALBUTEROL/IPRATROPIUM (NEB) 3 ML AMP INH PRN (05:30)
[2018-12-04] MEDS ORDERED: ACETAMINOPHEN 325 MG TAB PO PRN (05:30)
[2018-12-04] MEDS ORDERED: NAPROXEN 500 MG TAB PO PRN (05:30)
[2018-12-04] MEDS: ALBUTEROL HFA 8 GM INHALER INH SCH ×5 (07:40→21:33)
[2018-12-04] MEDS ORDERED: ARFORMOTEROL TARTRATE 15MCG/2 ML AMP NEB SCH (08:00)
--- NOTE | 2018-12-04 08:38 | HP ---
Date/Time of Note Date/Time of Note DATE: 12/04/18 TIME: 08:32 Assessment/Plan VTE Prophylaxis Pharmacological prophylaxis: heparin Lines/Catheters IV Catheter Type (from Nrs): Mid Line Assessment/Plan Assessment/Plan 1. Shortness of breath: Patient with a history of pulmonary fibrosis: She was just discharged from here. See HPI -Supplemental oxygen, bronchodilators. As needed steroid -forms analysis manager consult to make sure the patient will receive appropriate medications and equipment -continue home meds. Adjust as needed 2. Paroxysmal atrial fibrillation: Rate controlled. Continue diltiazem and apixaban 3. Diastolic CHF: Continue cardiac meds, including Cozaar and Lasix 4. CAD with a history of stent: Continue home meds 5. Dyslipidemia: Continue statin 6. Recently diagnosed left-sided pneumonia: Patient was discharged with clindamycin and cefepime. Will continue 7. History of CVA: Continue statin. Patient on apixaban for A-fib Results 24hrs Laboratory Tests Test 12/04/18 01:44 Blood Gas Specimen Source Blood arterial Arterial Blood Date Drawn 12/04/2018 1:50:00 AM Arterial Blood pH (Temp corrected) 7.468 H Arterial Blood pCO2 (Temp correct) 35.9 Arterial Blood pO2 (Temp corrected) 84.6 Arterial Blood HCO3 25.4 Arterial Blood Base Excess 2.1 Arterial Blood Oxygen Saturation 96.4 Jasvir Test ACCEPTAB Arterial Blood Gas Puncture Site Right Brachial Arterial Blood Carboxyhemoglobin 0.1 Arterial Blood Methemoglobin 0.4 Blood Gas A-a O2 Differential 22.1 Oxyhemoglobin Percent 95.9 Blood Gas Temperature 37.0 Blood Gas Modality ROOM AIR FiO2 21.0 Blood Gas Notified Whom MM Blood Gas Notified Time 12/04/2018 1:59:00 AM HPI/ROS Admit Date/Time Admit Date/Time December 04, 2018 at 02:54 Hx of Present Illness This is an 82-year-old female with a history of pulmonary fibrosis, paroxysmal atrial fibrillation, hypertension, CVA, diastolic CHF, CVA status post stent, dyslipidemia. Patient was brought to the ER for shortness of breath. Patient was just discharged from here. She was not able to get bronchodilators, CPAP and oxygen at home because of insurance reason. Because of pricing, family was unable to afford. Because of continued shortness of breath, she was brought back to ER. During recent hospitalization, she was diagnosed with pneumonia and was discharged with IV antibiotics. PMH/Family/Social Past Medical History Past Surgical Hx: other (see hpi) Family History Significant Family History: no pertinent family hx Social History Alcohol Use: heavy (2 beers a day) Smoking Status: Never smoker Drug Use: none Exam Constitutional: other (no acute distress) ENMT: nl external ears & nose Neck: supple, non-tender Respiratory: normal air movement Cardiovascular: nl pulses Gastrointestinal: soft Extremities: normal pulses Medications Current Medications IV Flush (NS 3 ml) 3 ml PER PROTOCOL IV ; Start 12/04/18 at 05:30 Ondansetron HCl (Zofran Inj) 4 mg Q6H PRN IV NAUSEA/VOMITING; Start 12/04/18 at 05:30 Acetaminophen (Tylenol Tab) 650 mg Q6H PRN PO .PAIN 1-3 OR TEMP; Start 12/04/18 at 05:30 Albuterol (Ventolin Hfa) 2 puff Q4H RESP THERAPY INH ; Start 12/04/18 at 06:00 Apixaban (Eliquis) 5 mg BID PO ; Start 12/04/18 at 09:00 Arformoterol Tartrate (Brovana (Neb)) 2 ml Q12H RESP THERAPY NEB Last administered on 12/04/18at 08:25; Admin Dose 2 ML; Start 12/04/18 at 08:00 Ascorbic Acid (Vitamin C) 500 mg DAILY PO ; Start 12/04/18 at 09:00 Atorvastatin Calcium (Lipitor) 40 mg DAILY PO ; Start 12/04/18 at 09:00 Budesonide (Pulmicort (Neb)) 0.25 mg BID RESP THERAPY HHN Last administered on 12/04/18at 08:25; Admin Dose 0.25 MG; Start 12/04/18 at 09:00 Furosemide (Lasix) 40 mg DAILY PO ; Start 12/04/18 at 09:00 Albuterol/ Ipratropium (Duoneb) 3 ml Q6 PRN INH sob; Start 12/04/18 at 05:30 Losartan Potassium (Cozaar) 100 mg DAILY PO ; Start 12/04/18 at 09:00 Naproxen (Naprosyn) 500 mg BID PRN PO PAIN AND/OR INFLAMMATION; Start 12/04/18 at 05:30 Potassium Chloride (Micro-K) 8 meq DAILY PO ; Start 12/04/18 at 09:00 Diltiazem HCl (Cardizem Cd) 180 mg DAILY PO ; Start 12/04/18 at 09:00 Coded Allergies: lisinopril (Verified Allergy, Unknown, 10/12/18) Past Surgical History Past Surgical Hx: other Family History Significant Family History: no pertinent family hx Social History Smoking Status: Never smoker Exam/Review of Systems Vital Signs Vitals Vital Signs Date Temp Pulse Resp B/P (MAP) Pulse Ox O2 O2 Flow FiO2 Time Delivery Rate 12/04/18 81 16 93 21 08:26 12/04/18 98.2 142/73 Room Air 07:29 (96) BIBIANA MARTINEZ MD December 04, 2018 08:38
[2018-12-04] MEDS ORDERED: BUDESONIDE (NEB) 0.25 MG/2 ML AMP HHN SCH (09:00)
[2018-12-04] MEDS ORDERED: MULTIVITAMINS THERAPEUTIC TAB PO SCH (09:00)
[2018-12-04] MEDS: ATORVASTATIN 40 MG TAB PO SCH (09:46)
[2018-12-04] MEDS: DILTIAZEM (CD) 180 MG CAP PO SCH (09:47)
[2018-12-04] MEDS: APIXABAN 5 MG TABLET PO SCH ×2 (09:47→20:17)
[2018-12-04] MEDS: LOSARTAN 50 MG TAB PO SCH (09:48)
[2018-12-04] MEDS: ASCORBIC ACID 500 MG TAB PO SCH (09:48)
[2018-12-04] MEDS: POTASSIUM CHLORIDE (SR) 8 MEQ CAP PO SCH (09:48)
[2018-12-04] MEDS: FUROSEMIDE 40 MG TAB PO SCH (09:48)
[2018-12-04] MEDS ORDERED: SOD CHLORIDE 0.9% 1,000 ML IV ONE (11:30)
[2018-12-04] MEDS ORDERED: DEXTROSE 5% 1,000 ML IV SCH (11:30)
[2018-12-04] MEDS: CEFEPIME 1GM/50 ML IVPB SCH ×2 (12:55→20:18)
[2018-12-04] MEDS ORDERED: CLINDAMYCIN 300 MG CAP PO SCH (14:00)
--- NOTE | 2018-12-04 15:33 | PN ---
Date/Time of Note Date/Time of Note DATE: 12/04/18 TIME: 15:25 Assessment/Plan VTE Prophylaxis Risk score (from Nsg)>0 risk: 3 SCD applied (from Ns): No SCD contraindicated: other (not contraindicated) Pharmacological prophylaxis: NA/contraindicated, apixaban Pharm contraindication: low risk/ambulating Lines/Catheters IV Catheter Type (from [facility]): Mid Line Assessment/Plan Assessment/Plan An 82-year-old Filip[place] woman who presents with shortness of breath, brought in by her daughter. #Dyspnea - Pulmonary fibrosis - Will continue home Breo Elipta and albuterol prn. - Tried to discharge patient on Brovana and Pulmicort but these are not covered by insurance. - Monitor on tele to assess for desaturation overnight. #Hospital-acquired pneumonia - Continue cefepime IV as ordered last admission. #Paroxysmal atrial fibrillation, rate controlled. # Hypertension with improved control. # History of cerebrovascular accident. # Congestive heart failure with diastolic dysfunction, but preserved EF with a mild exacerbation. # Coronary artery disease, status post previous stenting. # History of dyslipidemia, on statin therapy. # Steroid-induced leukocytosis. # Chronic pulmonary fibrosis DVT: apixaban GI: None Subjective 24 Hr Interval Summary Free Text/Dictation No acute overnight events. Patient sitting up in bed breathing comfortably on room air. Spoke at length to daughter. She is concerned that the patient woke up wheezing and dyspnic only an hour after getting prn albuterol. She is concerned the patient may be hypoxic overnight. She reports an incident during which the patient was saturating 87% in the ED, but unclear when this was. Wants her evaluated for home oxygen. Exam/Review of Systems Exam Vitals Vital Signs Date Temp Pulse Resp B/P (MAP) Pulse Ox O2 O2 Flow FiO2 Time Delivery Rate 12/04/18 83 12:06 12/04/18 97.9 19 123/58 97 Room Air 11:30 (79) 12/04/18 21 08:26 Exam Constitutional: alert, oriented, elderly, no distress, sitting in a chair at the edge of the bed Head: atraumatic, normocephalic Neck: non-tender, supple Respiratory: clear to auscultation, no wheezing. Cardiovascular: regular rate and rhythm Gastrointestinal: S/ NT / ND / +BS Extremities: no edema, good radial pulses Results Results 24hrs Laboratory Tests Test 12/04/18 01:44 Blood Gas Specimen Source Blood arterial Arterial Blood Date Drawn 12/04/2018 1:50:00 AM Arterial Blood pH (Temp corrected) 7.468 H Arterial Blood pCO2 (Temp correct) 35.9 Arterial Blood pO2 (Temp corrected) 84.6 Arterial Blood HCO3 25.4 Arterial Blood Base Excess 2.1 Arterial Blood Oxygen Saturation 96.4 Jasvir Test ACCEPTAB Arterial Blood Gas Puncture Site Right Brachial Arterial Blood Carboxyhemoglobin 0.1 Arterial Blood Methemoglobin 0.4 Blood Gas A-a O2 Differential 22.1 Oxyhemoglobin Percent 95.9 Blood Gas Temperature 37.0 Blood Gas Modality ROOM AIR FiO2 21.0 Blood Gas Notified Whom MM Blood Gas Notified Time 12/04/2018 1:59:00 AM Medications Medication Current Medications IV Flush (NS 3 ml) 3 ml PER PROTOCOL IV ; Start 12/04/18 at 05:30 Ondansetron HCl (Zofran Inj) 4 mg Q6H PRN IV NAUSEA/VOMITING; Start 12/04/18 at 05:30 Acetaminophen (Tylenol Tab) 650 mg Q6H PRN PO .PAIN 1-3 OR TEMP; Start 12/04/18 at 05:30 Albuterol (Ventolin Hfa) 2 puff Q4H RESP THERAPY INH ; Start 12/04/18 at 06:00 Apixaban (Eliquis) 5 mg BID PO Last administered on 12/04/18at 09:47; Admin Dose 5 MG; Start 12/04/18 at 09:00 Arformoterol Tartrate (Brovana (Neb)) 2 ml Q12H RESP THERAPY NEB Last administered on 12/04/18at 08:25; Admin Dose 2 ML; Start 12/04/18 at 08:00; Status Hold Ascorbic Acid (Vitamin C) 500 mg DAILY PO Last administered on 12/04/18 09:48; Admin Dose 500 MG; Start 12/04/18 at 09:00 Atorvastatin Calcium (Lipitor) 40 mg DAILY PO Last administered on 12/04/18 09:46; Admin Dose 40 MG; Start 12/04/18 at 09:00 Budesonide (Pulmicort (Neb)) 0.25 mg BID RESP THERAPY HHN Last administered on 12/04/18 08:25; Admin Dose 0.25 MG; Start 12/04/18 at 09:00; Status Hold Furosemide (Lasix) 40 mg DAILY PO Last administered on 12/04/18 09:48; Admin Dose 40 MG; Start 12/04/18 at 09:00 Albuterol/ Ipratropium (Duoneb) 3 ml Q6 PRN INH sob; Start 12/04/18 at 05:30 Losartan Potassium (Cozaar) 100 mg DAILY PO Last administered on 12/04/18at 09:48; Admin Dose 100 MG; Start 12/04/18 at 09:00 Naproxen (Naprosyn) 500 mg BID PRN PO PAIN AND/OR INFLAMMATION; Start 12/04/18 at 05:30 Potassium Chloride (Micro-K) 8 meq DAILY PO Last administered on 12/04/18at 09:48; Admin Dose 8 MEQ; Start 12/04/18 at 09:00 Diltiazem HCl (Cardizem Cd) 180 mg DAILY PO Last administered on 12/04/18at 09:47; Admin Dose 180 MG; Start 12/04/18 at 09:00 Cefepime HCl 50 ml @ 100 mls/hr Q12 IVPB Last administered on 12/04/18at 12:55; Admin Dose 100 MLS/HR; Start 12/04/18 at 11:00 Fluticasone/ Vilanterol (Breo Ellipta 200-25 Mcg Inh) 1 inh DAILY INH ; Start 12/05/18 at 09:00 BONNY JIMENEZ MD December 04, 2018 15:33
[2018-12-05] VITALS (8 sets, daily range): BP systolic 108–130; BP diastolic 56–68; PULSE 74–90; RESP 16–20
[2018-12-05] MEDS: ALBUTEROL HFA 8 GM INHALER INH SCH ×3 (01:00→08:12)
[2018-12-05] MEDS: CEFEPIME 1GM/50 ML IVPB SCH (08:11)
[2018-12-05] MEDS: FUROSEMIDE 40 MG TAB PO SCH (08:13)
[2018-12-05] MEDS: ATORVASTATIN 40 MG TAB PO SCH (08:13)
[2018-12-05] MEDS: LOSARTAN 50 MG TAB PO SCH (08:14)
[2018-12-05] MEDS: APIXABAN 5 MG TABLET PO SCH (08:14)
[2018-12-05] MEDS: POTASSIUM CHLORIDE (SR) 8 MEQ CAP PO SCH (08:14)
[2018-12-05] MEDS: ASCORBIC ACID 500 MG TAB PO SCH (08:15)
[2018-12-05] MEDS: DILTIAZEM (CD) 180 MG CAP PO SCH (08:15)
[2018-12-05] MEDS ORDERED: FLUTICASONE/VILANTEROL 200-25 INH DEVICE INH SCH (09:00)
[2018-12-05] MEDS ORDERED: FLUT1BLS INH (09:47)
--- NOTE | 2018-12-05 09:48 | PDOCDIS ---
Discharge Instructions DIAGNOSIS Discharge Diagnosis Dyspnea CONDITION 2 [id number] Patient Condition: [id number] Good HOME CARE INSTRUCTIONS: [id number] Diet Instructions: [id number] Regular ACTIVITY: [id number] Activity Restrictions: [id number] No Restrictions FOLLOW UP/APPOINTMENTS Follow-up Plan 1. Take all medications as prescribed. For breathing, take Breo Elipta daily and albuterol as needed. 2. Continue your course of cefepime. 3. Return to the emergency room if you develop severe shortness of breath at rest not relieved by your inhaler. 4. See Dr. Lanza in clinic as scheduled. BONNY JIMENEZ MD December 05, 2018 09:48
--- NOTE | 2018-12-05 16:02 | DS ---
Date/Time of Note Date/Time of Note DATE: 12/05/18 TIME: 15:59 Discharge Summary Admission/Discharge Info Admit Date/Time December 04, 2018 at 02:54 Discharge Date/Time December 05, 2018 at 15:40 Discharge Diagnosis Dyspnea Patient Condition: Good Hx of Present Illness This is an 82-year-old female with a history of pulmonary fibrosis, paroxysmal atrial fibrillation, hypertension, CVA, diastolic CHF, CVA status post stent, dyslipidemia. Patient was brought to the ER for shortness of breath. Patient was just discharged from here yesterday. She had been prescribed pulmocort and brovana but her insurance would not pay for them. The patient was doing well at home, but overnight she suddenly woke up complaining of shortness of breath. The daughter heard wheezing; even though the patient had recieved prn albuterol just 2 hours prior. Because of continued shortness of breath, she was brought back to ER. During recent hospitalization, she was diagnosed with pneumonia and was discharged with IV antibiotics. Hospital Course I initiated the patient back on Breo Elipta and albuterol, which are covered by insurance. Also resumed IV cefepime which she is getting at home. Monitored patient overnight, she did fine on room air with no desaturation events. Also did ambulatory study without desaturation. The patient reports she has mild orthopnea and feels much more comfortably in the hospital bed with head elevated to 30 deg; she has trouble sleeping in her bed at home even with three pillows. Advised booster pillow. Discharge home on Breo Elipta and albuterol as well as antibiotics. Home Meds Active Scripts Fluticasone/Vilanterol (Breo Ellipta 200-25 Mcg INH) 1 Each Blst.w.dev, 1 INH INH DAILY, #1 EA Prov:BONNY JIMENEZ MD 12/05/18 Ibuprofen* (Motrin*) 400 Mg Tab, 400 MG PO Q8 PRN for PAIN AND/OR INFLAMMATION, #30 TAB Prov:FRANK KRISHNA MD 12/04/18 Albuterol Sulfate* (Proair HFA*) 8.5 Gm Hfa.aer.ad, 2 PUFF INH Q6H PRN for WHEEZING AND SOB, #1 INHALER Prov:FRANK KRISHNA MD 12/04/18 Naproxen* (Naprosyn*) 500 Mg Tablet, 500 MG PO BID PRN for PAIN AND/OR INFLAMMATION, #30 TAB Prov:FRANK KRISHNA MD 12/04/18 Inhaler, Assist Devices (Compact Space Chamber) 1 Each Spacer, EACH MC for to be used with inhalers, #1 Prov:YVROSE BARAJAS. 12/02/18 Clindamycin Hcl* (Clindamycin Hcl*) 300 Mg Capsule, 300 MG PO Q8 for 10 Days, #30 CAP Prov:YVROSE BARAJAS. 12/02/18 Ipratropium-Albuterol (Ipratropium-Albuterol) 0.5-3 Mg/3 Ml Ampul.neb, 3 ML INHALATION Q6 for 3 Days, #12 VIAL Prov:YVROSE BARAJAS. 12/02/18 Budesonide* (Budesonide*) 0.25 Mg/2 Ml Ampul.neb, 0.25 MG HHN BID RESP THERAPY, #60 VIAL 2 Refills Prov:YVROSE BARAJAS. 12/02/18 Lactobacillus Rhamnosus* (Culturelle*) 1 Each Cap.sprink, 1 CAP PO BID, #20 CAP Prov:YVROSE BARAJAS . 12/02/18 Cefepime Hcl/Dextrose, Iso-Osm (Cefepime 1 Gm Injection) 1 Gm/50 Ml Froz.piggy, 1 GM IV Q12 for 10 Days, #20 DOSE Prov:YVROSE BARAJAS. 12/02/18 Potassium Chloride* (Potassium Chloride*) 8 Meq Capsule.er, 8 MEQ PO DAILY, #30 CAP Prov:YVROSE BARAJAS. 12/01/18 Furosemide* (Lasix*) 40 Mg Tablet, 40 MG PO DAILY, #30 TAB Prov:YVROSE BARAJAS. 12/01/18 Reported Medications Ascorbic Acid* (Vitamin C*) 500 Mg Capsule.sa, 500 MG PO DAILY, CAP 10/13/18 Multivits-Min/Iron/FA/Lutein (Centrum Silver Women Tablet) 1 Each Tablet, 1 EACH PO DAILY, TAB 10/13/18 Huffman-3 Fatty Acids/Fish Oil (Fish Oil 1,000 mg Capsule) 1 Each Capsule, 1 EACH PO, CAP 10/13/18 Apixaban* (Eliquis*) 5 Mg Tablet, 5 MG PO BID for 30 Days, #60 TAKE 1 TABLET BY MOUTH TWICE A DAY 10/13/18 Atorvastatin* (Atorvastatin*) 40 Mg Tablet, 40 MG PO DAILY for 30 Days, #30 TAKE 1 TABLET BY MOUTH EVERY DAY 10/13/18 Losartan Potassium* (Losartan Potassium*) 25 Mg Tablet, 100 MG PO DAILY for 30 Days, #30 TAKE 1 TABLET BY MOUTH EVERY DAY 10/13/18 Diltiazem Hcl (Diltiazem Er) 180 Mg Capsule.sa, 180 MG PO DAILY TAKE ONE CAPSULE BY MOUTH DAILY 10/13/18 Albuterol Sulfate* (Ventolin HFA*) 18 Gm Hfa.aer.ad, 2 PUFF INHALATION Q4H, #1 INHALER 10/13/18 Discontinued Reported Medications Fluticasone/Vilanterol (Breo Ellipta 200-25 Mcg INH) 1 Each Blst.w.dev, 1 PUFF INHALATION DAILY, #1 INHALER 10/13/18 Furosemide* (Furosemide*) 20 Mg Tablet, 20 MG PO DAILY for 30 Days, #30 10/13/18 Discontinued Scripts Arformoterol Tartrate* (Brovana* Neb) 2 Ml Nebu, 2 ML NEB Q12H RESP THERAPY, #60 VIAL 2 Refills Prov:YVROSE BARAJAS 12/02/18 Azithromycin* (Azithromycin*) 250 Mg Tablet, 250 MG PO DAILY for 5 Days, #5 TAB Prov:KIMMIE JOHNSON S. 10/14/18 Albuterol Sulfate* (Albuterol Sulfate* Neb) 0.083%-3 Ml Neb, 1.25 MG NEB Q3H PRN for WHEEZING AND SOB, #60 VIAL 2 Refills Prov:KIMMIE JOHNSON S. 10/14/18 Follow-up Plan 1. Take all medications as prescribed. For breathing, take Breo Elipta daily and albuterol as needed. 2. Continue your course of cefepime. 3. Return to the emergency room if you develop severe shortness of breath at rest not relieved by your inhaler. 4. See Dr. Lanza in clinic as scheduled. Primary Care Provider Not On Staff Doctor Time spent on discharge: > 30 minutes Pending Labs Laboratory Tests Test 12/05/18 06:06 White Blood Count 7.0 10^3/ul (4.8-10.8) Red Blood Count 4.89 10^6/ul (4.20-5.40) Hemoglobin 14.6 g/dl (12.0-16.0) Hematocrit 45.1 % (37.0-47.0) Mean Corpuscular Volume 92.2 fl (82.0-101.0) Mean Corpuscular Hemoglobin 29.9 pg (29.0-33.0) Mean Corpuscular Hemoglobin Concent 32.4 g/dl (32.0-37.0) Red Cell Distribution Width 14.1 % (11.5-14.5) Platelet Count 240 10^3/UL (140-415) Mean Platelet Volume 10.8 fl (7.4-10.4) Immature Granulocytes % 0.300 % (0.001-0.429) Neutrophils % 63.8 % (39.0-77.0) Lymphocytes % 20.5 % (15.0-51.0) Monocytes % 11.3 % (0.0-11.0) Eosinophils % 3.7 % (0.0-7.0) Basophils % 0.4 % (0.0-2.0) Nucleated Red Blood Cells % 0.0 /100WBC (0.0-0.0) Immature Granulocytes # 0.020 10^3/ul (0.0-0.031) Neutrophils # 4.5 10^3/ul (1.6-7.5) Lymphocytes # 1.4 10^3/ul (0.8-2.9) Monocytes # 0.8 10^3/ul (0.3-0.9) Eosinophils # 0.3 10^3/ul (0.0-0.5) Basophils # 0.0 10^3/ul (0.0-0.1) Nucleated Red Blood Cells # 0.0 10^3/ul (0.0-0.0) Sodium Level 141 mmol/L (135-144) Potassium Level 4.2 mmol/L (3.5-5.1) Chloride Level 105 mmol/L (97-110) Carbon Dioxide Level 29 mmol/L (21-31) Anion Gap 7 (5-13) Blood Urea Nitrogen 11 mg/dl (7-20) Creatinine 0.50 mg/dl (0.44-1.00) Est Glomerular Filtrat Rate mL/min mL/min (>60) Glucose Level 93 mg/dl (70-220) Calcium Level 9.6 mg/dl (8.4-10.2) Magnesium Level 2.0 mg/dl (1.7-2.5) Total Bilirubin 1.0 mg/dl (0.2-1.3) Direct Bilirubin 0.00 mg/dl (0.00-0.20) Indirect Bilirubin 1.0 mg/dl (0-1.1) Aspartate Amino Transf (AST/SGOT) 26 IU/L (15-46) Alanine Aminotransferase (ALT/SGPT) 37 IU/L (13-69) Alkaline Phosphatase 88 IU/L (42-121) Total Protein 6.4 g/dl (6.1-8.1) Albumin 3.4 g/dl (3.3-4.9) Globulin 3.00 g/dl (1.3-3.2) Albumin/Globulin Ratio 1.13 BONNY JIMENEZ MD December 05, 2018 16:02
== END 2018-12-05 15:40 | disposition home or self-care (01) | DRG 204 ==
LOC: E/R 00:29 → TEL 02:54
PROVIDERS: ADMIT Internal Medicine; ATTEND Internal Medicine
PROC: 3E0F7GC Introduction of Other Therapeutic Substance into Respiratory Tract, Via Natural or Artificial Opening (ICD-10-PCS; principal; 2018-12-04)
DX: R06.00 Dyspnea, unspecified (principal); I50.30 Unspecified diastolic (congestive) heart failure; J84.10 Pulmonary fibrosis, unspecified; I48.0 Paroxysmal atrial fibrillation; I11.0 Hypertensive heart disease with heart failure; I25.10 Atherosclerotic heart disease of native coronary artery without angina pectoris; E78.5 Hyperlipidemia, unspecified; Z86.73 Personal history of transient ischemic attack (TIA), and cerebral infarction without residual deficits
CPT/HCPCS: 36600; 80053; 82803; 83735; 85025; 93005; 94640; 94644; J0692; J7030; J7070

== ENCOUNTER 2019-03-13 14:31 | Emergency (ER) | payer BC ==
[~2019-03-13] VITALS: Ht 160 cm; Wt 72.2 kg
[~2019-03-13 14:31] MED LIST changes: +ALBU8.5H8 INH; +AMLO5TAB4 PO; -BROVANA NEB; +DILT180C72 PO; +FAMO-96 PO; +FLUT1BLS INH; +FLUT1BLS INHALATION; +FURO20TA3 PO; +HYDR-4011 PO; +IBUP-1561 PO; +MOME13HF INHALATION; +NAPR-985 PO; +PRED10TA PO
[2019-03-13 14:34] VITALS: Ht 160 cm; Wt 72.2 kg
[2019-03-13] MEDS ORDERED: LIDOCAINE/MYLANTA 40 ML BTL PO STA (15:13)
[2019-03-13] MEDS ORDERED: BELLADONNA/PHENOBARBITAL TAB PO STA (15:13)
[2019-03-13] MEDS ORDERED: FAMOTIDINE 20 MG INJ IV STA (15:13)
[2019-03-13] MEDS ORDERED: SOD CHLORIDE 0.9% 500 ML IV STA (15:13)
[2019-03-13] MEDS ORDERED: ONDANSETRON 4 MG INJ IV STA (15:13)
--- NOTE | 2019-03-13 18:37 | ERD ---
ER Documentation Chief Complaint Chief Complaint upper abdominal pain today HPI This is an 83-year-old female with a past medical history of hypertension, hyperlipidemia, atrial fibrillation on Cardizem and Eliquis who is presenting for waxing and waning transient mild to moderate aching epigastric pain. She does not endorse any nausea or vomiting. She does not believe it is associated with eating, but she does not know for sure. She does not endorse any constipation or diarrhea. She does not endorse any black or bloody or tarry stools. She does not endorse any dysuria or hematuria or urgency or frequency. The patient denies feeling sick recently. The patient denies fever or chills. The patient has had no headache or vision changes. The patient does not endorse neck or back pain. The patient denies lightheadedness or dizziness. The patient has had no chest pain or trouble breathing or pleuritic pain. She does not endorse any diaphoresis. The patient has had no focal deficits. The patient has had no weakness or numbness or tingling to the face or extremities. ROS All systems reviewed and are negative except as per history of present illness. Medications Home Meds Reported Medications Losartan Potassium* (Losartan Potassium*) 25 Mg Tablet, 25 MG PO DAILY, TAB 03/13/19 Fluticasone/Vilanterol (Breo Ellipta 200-25 Mcg INH) 1 Each Blst.w.dev, 1 PUFF INHALATION DAILY, #1 INHALER 03/13/19 Mometasone-Formoterol (Dulera) 200-5 Mcg/Inh - 13 Gm Hfa.aer.ad, 2 PUFFS INHALATION BID, #1 INHALER 03/13/19 Atorvastatin* (Atorvastatin*) 40 Mg Tablet, 40 MG PO QHS, #30 TAB 03/13/19 Furosemide* (Furosemide*) 20 Mg Tablet, 20 MG PO EVERY OTHER DAY, #30 TAB 03/13/19 Apixaban* (Eliquis*) 5 Mg Tablet, 5 MG PO BID, TAB 03/13/19 Diltiazem Hcl* (Cardizem CD*) 180 Mg Cap.sr.24h, 180 MG PO DAILY, #30 CAP 03/13/19 Prednisone* (Prednisone*) 10 Mg Tab, 10 MG PO DAILY, TAB 03/13/19 Amlodipine Besylate* (Norvasc*) 5 Mg Tablet, 5 MG PO DAILY, TAB 03/13/19 Discontinued Reported Medications Ascorbic Acid* (Vitamin C*) 500 Mg Capsule.sa, 500 MG PO DAILY, CAP 10/13/18 Multivits-Min/Iron/FA/Lutein (Centrum Silver Women Tablet) 1 Each Tablet, 1 EACH PO DAILY, TAB 10/13/18 [place]-3 Fatty Acids/Fish Oil (Fish Oil 1,000 mg Capsule) 1 Each Capsule, 1 EACH PO, CAP 10/13/18 Apixaban* (Eliquis*) 5 Mg Tablet, 5 MG PO BID for 30 Days, #60 TAKE 1 TABLET BY MOUTH TWICE A DAY 10/13/18 Atorvastatin* (Atorvastatin*) 40 Mg Tablet, 40 MG PO DAILY for 30 Days, #30 TAKE 1 TABLET BY MOUTH EVERY DAY 10/13/18 Losartan Potassium* (Losartan Potassium*) 25 Mg Tablet, 100 MG PO DAILY for 30 Days, #30 TAKE 1 TABLET BY MOUTH EVERY DAY 10/13/18 Diltiazem Hcl (Diltiazem Er) 180 Mg Capsule.sa, 180 MG PO DAILY TAKE ONE CAPSULE BY MOUTH DAILY 10/13/18 Albuterol Sulfate* (Ventolin HFA*) 18 Gm Hfa.aer.ad, 2 PUFF INHALATION Q4H, #1 INHALER 10/13/18 Discontinued Scripts Fluticasone/Vilanterol (Breo Ellipta 200-25 Mcg INH) 1 Each Blst.w.dev, 1 INH INH DAILY, #1 EA Prov:BONNY JIMENEZ MD 12/05/18 Ibuprofen* (Motrin*) 400 Mg Tab, 400 MG PO Q8 PRN for PAIN AND/OR INFLAMMATION, #30 TAB Prov:FRANK KRISHNA MD 12/04/18 Albuterol Sulfate* (Proair HFA*) 8.5 Gm Hfa.aer.ad, 2 PUFF INH Q6H PRN for WHEEZING AND SOB, #1 INHALER Prov:FRANK KRISHNA MD 12/04/18 Naproxen* (Naprosyn*) 500 Mg Tablet, 500 MG PO BID PRN for PAIN AND/OR INFLAMMATION, #30 TAB Prov:FRANK KRISHNA MD 12/04/18 Inhaler, Assist Devices (Compact Space Chamber) 1 Each Spacer, EACH MC for to be used with inhalers, #1 Prov:YVROSE BARAJAS/2/19 Clindamycin Hcl* (Clindamycin Hcl*) 300 Mg Capsule, 300 MG PO Q8 for 10 Days, #30 CAP Prov:YVROSE BARAJAS. 12/02/18 Ipratropium-Albuterol (Ipratropium-Albuterol) 0.5-3 Mg/3 Ml Ampul.neb, 3 ML INHALATION Q6 for 3 Days, #12 VIAL Prov:YVROSE BARAJAS. 12/02/18 Budesonide* (Budesonide*) 0.25 Mg/2 Ml Ampul.neb, 0.25 MG HHN BID RESP THERAPY, #60 VIAL 2 Refills Prov:YVROSE BARAJAS . 12/02/18 Lactobacillus Rhamnosus* (Culturelle*) 1 Each Cap.sprink, 1 CAP PO BID, #20 CAP Prov:YVROSE BARAJAS . 12/02/18 Cefepime Hcl/Dextrose, Iso-Osm (Cefepime 1 Gm Injection) 1 Gm/50 Ml Froz.piggy, 1 GM IV Q12 for 10 Days, #20 DOSE Prov:YVROSE BARAJAS. 12/02/18 Potassium Chloride* (Potassium Chloride*) 8 Meq Capsule.er, 8 MEQ PO DAILY, #30 CAP Prov:YVROSE BARAJAS. 12/01/18 Furosemide* (Lasix*) 40 Mg Tablet, 40 MG PO DAILY, #30 TAB Prov:YVROSE BARAJAS. 12/01/18 Allergies Allergies: Coded Allergies: lisinopril (Verified Allergy, Unknown, 03/13/19) PMhx/Soc History of Surgery: Yes (varicose veins) Anesthesia Reaction: No Hx Neurological Disorder: Yes (stroke 2015) Hx Respiratory Disorders: Yes (COPD) Hx Cardiac Disorders: Yes (Hypertension, hyperlipidemia, atrial fibrillation) Hx Psychiatric Problems: No Hx Miscellaneous Medical Probl: No Hx Alcohol Use: No Hx Substance Use: No Hx Tobacco Use: No Smoking Status: Never smoker FmHx Family History: No diabetes Physical Exam Vitals Vital Signs Date Temp Pulse Resp B/P (MAP) Pulse Ox O2 O2 Flow FiO2 Time Delivery Rate 03/13/19 78 20 131/70 99 Room Air 15:42 (90) 03/13/19 97.2 72 20 142/63 98 14:34 (89) Physical Exam Const: No acute distress Head: Atraumatic Eyes: Normal Conjunctiva ENT: Normal External Ears, Nose and Mouth. Neck: Full range of motion. No meningismus. Resp: Clear to auscultation bilaterally Cardio: Regular rate and rhythm, no murmurs Abd: Soft, non distended. Mild epigastric tenderness. No rebound or guarding. Normal bowel sounds Skin: No petechiae or rashes Back: No midline or flank tenderness Ext: No cyanosis, or edema Neur: Awake and alert Psych: Normal Mood and Affect Result Diagram: 03/13/19 1534 03/13/19 1534 Results 24 hrs Laboratory Tests Test 03/13/19 15:34 03/13/19 18:00 White Blood Count 10.3 10^3/ul Red Blood Count 4.65 10^6/ul Hemoglobin 14.1 g/dl Hematocrit 43.8 % Mean Corpuscular Volume 94.2 fl Mean Corpuscular Hemoglobin 30.3 pg Mean Corpuscular Hemoglobin Concent 32.2 g/dl Red Cell Distribution Width 14.6 % Platelet Count 204 10^3/UL Mean Platelet Volume 10.5 fl Immature Granulocytes % 0.300 % Neutrophils % 82.8 % Lymphocytes % 8.8 % Monocytes % 7.3 % Eosinophils % 0.6 % Basophils % 0.2 % Nucleated Red Blood Cells % 0.0 /100WBC Immature Granulocytes # 0.030 10^3/ul Neutrophils # 8.6 10^3/ul Lymphocytes # 0.9 10^3/ul Monocytes # 0.8 10^3/ul Eosinophils # 0.1 10^3/ul Basophils # 0.0 10^3/ul Nucleated Red Blood Cells # 0.0 10^3/ul Sodium Level 139 mmol/L Potassium Level 3.7 mmol/L Chloride Level 103 mmol/L Carbon Dioxide Level 29 mmol/L Anion Gap 7 Blood Urea Nitrogen 11 mg/dl Creatinine 0.62 mg/dl Est Glomerular Filtrat Rate mL/min mL/min Glucose Level 224 mg/dl Calcium Level 9.7 mg/dl Total Bilirubin 1.1 mg/dl Direct Bilirubin 0.00 mg/dl Indirect Bilirubin 1.1 mg/dl Aspartate Amino Transf (AST/SGOT) 41 IU/L Alanine Aminotransferase (ALT/SGPT) 38 IU/L Alkaline Phosphatase 93 IU/L Total Protein 7.0 g/dl Albumin 4.0 g/dl Globulin 3.00 g/dl Albumin/Globulin Ratio 1.33 Lipase 105 U/L Urine Color STRAW Urine Clarity CLEAR Urine pH 7.0 Urine Specific Ray 1.005 Urine Ketones NEGATIVE mg/dL Urine Nitrite NEGATIVE mg/dL Urine Bilirubin NEGATIVE mg/dL Urine Urobilinogen NEGATIVE mg/dL Urine Leukocyte Esterase NEGATIVE Darlene/ul Urine Hemoglobin NEGATIVE mg/dL Urine Glucose NEGATIVE mg/dL Urine Total Protein NEGATIVE mg/dl Current Medications Medications Dose Sig/Shivam Start Time Status Last (Trade) Ordered Route PRN Stop Time Admin Dose Reason Admin Sodium 500 ml @ Q1H STAT 03/13/19 DC 03/13/19 Chloride 500 mls/hr IV 15:13 15:52 03/13/19 16:12 Ondansetron 4 mg ONCE STAT 03/13/19 DC 03/13/19 HCl (Zofran IV 15:13 15:52 Inj) 03/13/19 15:14 Famotidine 20 mg ONCE STAT 03/13/19 DC 03/13/19 (Pepcid Iv) IV 15:13 15:52 03/13/19 15:14 40 ml ONCE STAT 03/13/19 DC 03/13/19 Miscellaneous PO 15:13 15:52 Medication 03/13/19 15:14 (Gi Cocktail (2)) Belladonna/ 2 tab ONCE STAT 03/13/19 DC 03/13/19 Phenobarbital PO 15:13 15:52 () 03/13/19 15:14 Procedures/MDM MDM The patient's presentation warrants further investigation. Previous medical records, if available, were reviewed. LABS The patient's laboratory testing was obtained and reviewed. No emergent treatment was required unless described below. CBC: No E/o systemic infection or severe anemia or thrombocytopenia Chemistry: No E/o severe acidosis or alkalosis or renal failure or liver d isease. Hyperglycemia without diabetic ketoacidosis Lipase: No E/o pancreatitis Urine: No E/o acute infection or hematuria EKG EKG read by me: Rate/Rhythm: Regular rate, irregular rhythm indicating rate controlled atrial fibrillation. Intervals: Normal QRS and QTc. No P waves. [place]: Normal Impression: Rate controlled atrial fibrillation. Nonspecific repolarization changes without evidence of ischemia. IMAGING Imaging and Radiology interpretation reviewed. CXR FINDINGS: There is bilateral lung base patchy consolidation. There is right upper lung field scarring versus consolidation. There are increased interstitial markings. The heart size is normal. There is a tortuous calcified thoracic aorta. There is no pleural effusion. There is no pneumothorax. IMPRESSION: There is bilateral lung base patchy consolidation. There is right upper lung field scarring versus consolidation. There are increased interstitial markings. Follow-up to resolution to exclude underlying neoplasm. Electronically viewed and signed by Christopher Emery Physician on 03/13/2019 15:35 TREATMENT/DISPOSITION The patient presents for a transient episode of epigastric pain. GERD versus PUD versus gastritis are possibilities. The patient was treated with IV fluids, Zofran, Pepcid and GI cocktail with some improvement of her symptoms. The patient's blood sugar is elevated. She does not carry diagnosis of diabetes, but diabetes could certainly be the etiology of her symptoms if she has some ga stroparesis. I recommended that the patient follow-up with her primary care physician regarding her elevated sugar. The patient does not have any evidence of peritonitis. The patient does not have clinical symptoms concerning for mesenteric ischemia or ischemic colitis. The patient does not have right upper quadrant tenderness, and I have low suspicion for gallstones, cholecystitis or biliary colic. The patient does not have left upper quadrant tenderness. I have low suspicion for pancreatitis. The patient does not have any right lower quadrant tenderness, or periumbilical tenderness. I have low suspicion for appendicitis. The patient does not have suprapubic tenderness. I have decreased suspicion for cystitis. The patient does not have any left lower quadrant tenderness, and I have low suspicion for diverticulosis or diverticulitis. The patient does not have any flank tenderness. The patient does not have gross hematuria. I have decreased suspicion for nephrolithiasis or renal colic. The patient does not have any palpable pulsatile mass or severe abdominal pain radiating to the back. I have low suspicion for aortic aneurysm, dissection or rupture. The patient's symptoms are not consistent with a cardiopulmonary process. The patient's chest x-ray reveals bilateral lung patchy consolidations which could be related to scarring versus consolidation. The patient's symptoms are not consistent with pneumonia. The patient is afebrile with no leukocytosis. Her vital signs are normal. The patient symptoms are not consistent with an infectious etiology. She is not septic. She does not require antibiotics at this time. The radiologist report indicates follow-up imaging to exclude underlying neoplasm. The patient's symptoms are not consistent with the symptoms related to a neoplastic etiology. This may be followed up in an outpatient setting. My suspicion for cancer is the etiology of her presentation today is low. The patient's chest xray does not reveal pneumothorax or pleural effusions or pulmonary edema. The patient does not have a widened mediastinum and does not have signs or symptoms concerning for thoracic aortic aneurysm or dissection. The patient does not have pneumomediastinum or signs concerning for esophageal tear or rupture. The patient has no clinical or radiographic signs of pericardial effusion or tamponade. The patient does not have pneumoperitoneum and I have decreased suspicion of viscus perforation as possible referred pain. The patient does not have a history of heart failure and I have low suspicion for this. The patient does not have a diagnosis of COPD and is not wheezing today. The patient is not tachypneic or hypoxic. The patient is breathing comfortably and without pleuritic pain. The patient is not on hormonal therapy. The patient has no history of clotting or bleeding disorders. The patient has no calf tenderness. The patient has had no hemoptysis. I have decreased suspicion for PE. The patient's EKG is reassuring. I have low suspicion for acute coronary syndrome. DISCHARGE Upon reevaluation of the patient, symptoms have improved. No emergent diagnoses were identified. At this time, I feel that the patient stable for discharge. The patient was instructed to follow-up with a primary care physician in 1-3 days. The patient will be given strict precautions with which to return to the emergency department. Prescriptions: Pepcid The patient's blood pressure was elevated at greater than 120/80 while in the emergency department. The patient was otherwise stable with no evidence of hypertensive urgency or emergency. The patient does not require admission for blood pressure control. I have discussed with the patient the risks of hypertension. I have instructed the patient to return to the ER for any new or worsening symptoms including chest pain, shortness of breath, headache, blurred vision, confusion, nausea, vomiting or LOC. I have advised the patient to follow up with the primary care physician for outpatient monitoring and treatment for hypertension in 1-3 days. DISCLAIMER Inadvertent spelling and grammatical errors are likely due to EHR/dictation software use and do not reflect on the overall quality of patient care. Note that the electronic time recorded on this note does not necessarily reflect the actual time of the patient encounter. Departure Diagnosis: Primary Impression: Epigastric abdominal pain Additional Impression: Hyperglycemia Condition: Stable Patient Instructions: Abdominal Pain, Hyperglycemia (High Blood Sugar) Additional Instructions: Thank you for for coming to [facility] for your care today. Please ask your nurse or provider if you have questions about your care today and do not leave until all your questions have been answered. Please use any medications given as directed and follow-up with your doctor (or the doctor you were referred to) in the next 1-3 days. If you do not have a primary care doctor you may follow up [place] [facility] [place] [facility] (listed below). You may also use motrin and tylenol as needed for fever and/or pain unless instructed otherwise by your provider or nurse. Indications for more urgent follow-up have been discussed, but you may return to the Emergency Department at ANY time for any worrisome or worsening symptoms. If you have abdominal pain, please know that no test or exam you received is perfect and you should follow up within 8 hours for continued pain. If you had any imaging studies today, such as an X-Ray or CT Scan, these studies will be reviewed later by a radiologist. You will be called if there are import ant findings that were not identified today, so make sure the contact information you provided at registration is correct. If you received any narcotic pain control medicine today, such as Vicodin, M orphine or Dilaudid, your coordination and judgment may be affected for a number of hours. Please do not drive or operate heavy machinery, and you may want someone to assist you at home. If you were given a prescription for narcotic medication, be aware that it is very addictive- use sparingly and only if necessary. PLEASE SEEK FURTHER EVALUATION AND MANAGEMENT AT YOUR DOCTORS OFFICE WITHIN THE NEXT 1-3 DAYS. IT IS YOUR RESPONSIBILITY TO MAKE AN APPOINTMENT FOR FOLOW-UP CARE. IF YOU HAVE A PRIMARY DOCTOR, PLEASE CALL THEIR OFFICE TO SCHEDULE AN APPOINTMENT FOR FOLLOW UP. IF YOU DO NOT HAVE A PRIMARY DOCTOR YOU CAN CALL OUR PHYSICIAN REFERRAL HOTLINE AT IF YOU CAN NOT AFFORD TO SEE A PHYSICIAN YOU CAN CHOSE FROM THE FOLLOWING [facility] CLINICS: [facility] [id number] [facility] [address] [facility] [facility] [address] [facility] [address] [facility] [address] [facility] [facility]. [address] JENNIFER IRBY MD Mar 13, 2019 18:37
[2019-03-13 18:47] VITALS: BP 149/79; PULSE 77; RESP 20
== END 2019-03-13 18:51 | disposition home or self-care (01) ==
LOC: E/R 14:31
DX: R10.13 Epigastric pain (principal); I10 Essential (primary) hypertension; J44.9 Chronic obstructive pulmonary disease, unspecified; R73.9 Hyperglycemia, unspecified; R40.2142 Coma scale, eyes open, spontaneous, at arrival to emergency department; R40.2362 Coma scale, best motor response, obeys commands, at arrival to emergency department; R40.2252 Coma scale, best verbal response, oriented, at arrival to emergency department; Z79.01 Long term (current) use of anticoagulants; Z86.73 Personal history of transient ischemic attack (TIA), and cerebral infarction without residual deficits
CPT/HCPCS: 36415; 71045; 80053; 81003; 83690; 85025; 93005; 96374; 96375; J2405; J7040; Z7502; Z7610

== ENCOUNTER 2019-03-14 21:54 | Emergency (ER) | payer BC ==
[~2019-03-14] VITALS: Ht 160 cm; Wt 73.1 kg
[~2019-03-14 21:54] MED LIST changes: -ALBU18HF INHALATION; -ALBU8.5H8 INH; -ASCO500C7 PO; -BUDE0.25 HHN; -CEFE1FRO IV; -CLIN300C10 PO; -DILT180C76 PO; -FLUT1BLS INH; -FURO-109 PO; -IBUP-1561 PO; -INHA-3 MC; -IPRA3AMP29 INHALATION; -LACT1CAP57 PO; -MULT-853 PO; -NAPR-985 PO; -OMEG-135 PO; -POTA8CAP PO
[2019-03-14 21:56] VITALS: Ht 160 cm; Wt 73.1 kg
[2019-03-14] MEDS ORDERED: morphine 4 MG/ML VIAL IV STA (22:17)
[2019-03-14] MEDS ORDERED: ONDANSETRON 4 MG INJ IV STA (22:17)
[2019-03-14] MEDS ORDERED: SOD CHLORIDE 0.9% 100 ML ONE (23:00)
[2019-03-14] MEDS ORDERED: IOHEXOL 300MG/ML 150 ML BTL ONE (23:00)
--- NOTE | 2019-03-15 00:59 | ERD ---
ER Documentation Chief Complaint Chief Complaint MID-LOW BACK PAIN, NO KNOWN INJ; RX PEPCID- ABD PAIN YEST; DENIES UTI S/S HPI This is an 83-year-old female with low back pain with no known injury. She was seen yesterday abdominal pain since resolving back pain started today when she woke. Pain is mild to moderate intensity. No bowel or bladder incontinence. No blood in urine. No fevers or chills. No other current complaints. ROS All systems reviewed and are negative except as per history of present illness. Medications Home Meds Active Scripts Hydrocodone/Acetaminophen ([place]atis 5-325 Tablet) 1 Each Tablet, 1 TAB PO Q6H PRN for PAIN, #20 TAB Prov:BIBIANA CAIN 03/15/19 Famotidine* (Pepcid*) 20 Mg Tablet, 20 MG PO BID for 14 Days, TAB Prov:JENNIFER OLIVARES MD 03/13/19 Reported Medications Losartan Potassium* (Losartan Potassium*) 25 Mg Tablet, 25 MG PO DAILY, TAB 03/13/19 Fluticasone/Vilanterol (Breo Ellipta 200-25 Mcg INH) 1 Each Blst.w.dev, 1 PUFF INHALATION DAILY, #1 INHALER 03/13/19 Mometasone-Formoterol (Dulera) 200-5 Mcg/Inh - 13 Gm Hfa.aer.ad, 2 PUFFS INHALATION BID, #1 INHALER 03/13/19 Atorvastatin* (Atorvastatin*) 40 Mg Tablet, 40 MG PO QHS, #30 TAB 03/13/19 Furosemide* (Furosemide*) 20 Mg Tablet, 20 MG PO EVERY OTHER DAY, #30 TAB 03/13/19 Apixaban* (Eliquis*) 5 Mg Tablet, 5 MG PO BID, TAB 03/13/19 Diltiazem Hcl* (Cardizem CD*) 180 Mg Cap.sr.24h, 180 MG PO DAILY, #30 CAP 03/13/19 Prednisone* (Prednisone*) 10 Mg Tab, 10 MG PO DAILY, TAB 03/13/19 Amlodipine Besylate* (Norvasc*) 5 Mg Tablet, 5 MG PO DAILY, TAB 03/13/19 Discontinued Reported Medications Ascorbic Acid* (Vitamin C*) 500 Mg Capsule.sa, 500 MG PO DAILY, CAP 10/13/18 Multivits-Min/Iron/FA/Lutein (Centrum Silver Women Tablet) 1 Each Tablet, 1 EACH PO DAILY, TAB 10/13/18 [place]-3 Fatty Acids/Fish Oil (Fish Oil 1,000 mg Capsule) 1 Each Capsule, 1 EACH PO, CAP 10/13/18 Apixaban* (Eliquis*) 5 Mg Tablet, 5 MG PO BID for 30 Days, #60 TAKE 1 TABLET BY MOUTH TWICE A DAY 10/13/18 Atorvastatin* (Atorvastatin*) 40 Mg Tablet, 40 MG PO DAILY for 30 Days, #30 TAKE 1 TABLET BY MOUTH EVERY DAY 10/13/18 Losartan Potassium* (Losartan Potassium*) 25 Mg Tablet, 100 MG PO DAILY for 30 Days, #30 TAKE 1 TABLET BY MOUTH EVERY DAY 10/13/18 Diltiazem Hcl (Diltiazem Er) 180 Mg Capsule.sa, 180 MG PO DAILY TAKE ONE CAPSULE BY MOUTH DAILY 10/13/18 Albuterol Sulfate* (Ventolin HFA*) 18 Gm Hfa.aer.ad, 2 PUFF INHALATION Q4H, #1 INHALER 10/13/18 Discontinued Scripts Fluticasone/Vilanterol (Breo Ellipta 200-25 Mcg INH) 1 Each Blst.w.dev, 1 INH INH DAILY, #1 EA Prov:BONNY JIMENEZ MD 12/05/18 Ibuprofen* (Motrin*) 400 Mg Tab, 400 MG PO Q8 PRN for PAIN AND/OR INFLAMMATION, #30 TAB Prov:FRANK KRISHNA MD 12/04/18 Albuterol Sulfate* (Proair HFA*) 8.5 Gm Hfa.aer.ad, 2 PUFF INH Q6H PRN for WHEEZING AND SOB, #1 INHALER Prov:FRANK KRISHNA MD 12/04/18 Naproxen* (Naprosyn*) 500 Mg Tablet, 500 MG PO BID PRN for PAIN AND/OR IN FLAMMATION, #30 TAB Prov:FRANK KRISHNA MD 12/04/18 Inhaler, Assist Devices (Compact Space Chamber) 1 Each Spacer, EACH MC for to be used with inhalers, #1 Prov:YVROSE BARAJAS 12/02/18 Clindamycin Hcl* (Clindamycin Hcl*) 300 Mg Capsule, 300 MG PO Q8 for 10 Days, #30 CAP Prov:YVROSE BARAJAS 12/02/18 Ipratropium-Albuterol (Ipratropium-Albuterol) 0.5-3 Mg/3 Ml Ampul.neb, 3 ML INHALATION Q6 for 3 Days, #12 VIAL Prov:YVROSE BARAJAS. 12/02/18 Budesonide* (Budesonide*) 0.25 Mg/2 Ml Ampul.neb, 0.25 MG HHN BID RESP THERAPY, #60 VIAL 2 Refills Prov:YVROSE BARAJAS. 12/02/18 Lactobacillus Rhamnosus* (Culturelle*) 1 Each Cap.sprink, 1 CAP PO BID, #20 CAP Prov:YVROSE BARAJAS. 12/02/18 Cefepime Hcl/Dextrose, Iso-Osm (Cefepime 1 Gm Injection) 1 Gm/50 Ml Froz.piggy, 1 GM IV Q12 for 10 Days, #20 DOSE Prov:YVROSE BARAJAS. 12/02/18 Potassium Chloride* (Potassium Chloride*) 8 Meq Capsule.er, 8 MEQ PO DAILY, #30 CAP Prov:YVROSE BARAJAS. 12/01/18 Furosemide* (Lasix*) 40 Mg Tablet, 40 MG PO DAILY, #30 TAB Prov:YVROSE BARAJAS. 12/01/18 Allergies Allergies: Coded Allergies: lisinopril (Verified Allergy, Unknown, 03/13/19) PMhx/Soc History of Surgery: Yes (varicose veins) Anesthesia Reaction: No Hx Neurological Disorder: Yes (stroke 2014) Hx Respiratory Disorders: Yes (COPD) Hx Cardiac Disorders: Yes (Hypertension, hyperlipidemia, atrial fibrillation) Hx Psychiatric Problems: No Hx Miscellaneous Medical Probl: No Hx Alcohol Use: No Hx Substance Use: No Hx Tobacco Use: No Smoking Status: Never smoker Physical Exam Vitals Vital Signs Date Temp Pulse Resp B/P (MAP) Pulse Ox O2 O2 Flow FiO2 Time Delivery Rate 03/14/19 98.6 85 19 121/69 100 Nasal 23:30 (86) Cannula 03/14/19 98.6 78 19 145/66 97 21:56 (92) Physical Exam Const: No acute distress Head: Atraumatic Eyes: Normal Conjunctiva ENT: Normal External Ears, Nose and Mouth. Neck: Full range of motion. No meningismus. Resp: Clear to auscultation bilaterally Cardio: Regular rate and rhythm, no murmurs Abd: Soft, non tender, non distended. Normal bowel sounds Skin: No petechiae or rashes Back: No midline or flank tenderness Ext: No cyanosis, or edema Neur: Awake and alert Psych: Normal Mood and Affect Result Diagram: 03/14/19222203/14/19 2223 Results 24 hrs Laboratory Tests Test 03/14/19 22:23 03/14/19 23:00 White Blood Count 9.0 10^3/ul Red Blood Count 4.50 10^6/ul Hemoglobin 13.5 g/dl Hematocrit 42.3 % Mean Corpuscular Volume 94.0 fl Mean Corpuscular Hemoglobin 30.0 pg Mean Corpuscular Hemoglobin Concent 31.9 g/dl Red Cell Distribution Width 14.6 % Platelet Count 205 10^3/UL Mean Platelet Volume 10.6 fl Immature Granulocytes % 0.300 % Neutrophils % 73.3 % Lymphocytes % 12.8 % Monocytes % 12.5 % Eosinophils % 0.9 % Basophils % 0.2 % Nucleated Red Blood Cells % 0.0 /100WBC Immature Granulocytes # 0.030 10^3/ul Neutrophils # 6.6 10^3/ul Lymphocytes # 1.2 10^3/ul Monocytes # 1.1 10^3/ul Eosinophils # 0.1 10^3/ul Basophils # 0.0 10^3/ul Nucleated Red Blood Cells # 0.0 10^3/ul Prothrombin Time 15.0 Sec Prothrombin Time Ratio 1.2 INR International Normalized Ratio 1.17 Activated Partial Thromboplast Time 34.0 Sec Sodium Level 136 mmol/L Potassium Level 3.6 mmol/L Chloride Level 102 mmol/L Carbon Dioxide Level 27 mmol/L Anion Gap 7 Blood Urea Nitrogen 13 mg/dl Creatinine 0.83 mg/dl Est Glomerular Filtrat Rate mL/min mL/min Glucose Level 163 mg/dl Calcium Level 9.4 mg/dl Total Bilirubin 1.1 mg/dl Direct Bilirubin 0.00 mg/dl Indirect Bilirubin 1.1 mg/dl Aspartate Amino Transf (AST/SGOT) 36 IU/L Alanine Aminotransferase (ALT/SGPT) 39 IU/L Alkaline Phosphatase 95 IU/L Troponin I < 0.012 ng/ml B-Type Natriuretic Peptide 614 PG/ML Total Protein 6.8 g/dl Albumin 3.9 g/dl Globulin 2.90 g/dl Albumin/Globulin Ratio 1.34 Urine Color YELLOW Urine Clarity CLEAR Urine pH 5.0 Urine Specific [place] 1.006 Urine Ketones NEGATIVE mg/dL Urine Nitrite NEGATIVE mg/dL Urine Bilirubin NEGATIVE mg/dL Urine Urobilinogen NEGATIVE mg/dL Urine Leukocyte Esterase NEGATIVE Darlene/ul Urine Hemoglobin NEGATIVE mg/dL Urine Glucose NEGATIVE mg/dL Urine Total Protein NEGATIVE mg/dl Current Medications Medications Dose Sig/Shivam Start Time Status Last (Trade) Ordered Route PRN Stop Time Admin Dose Reason Admin Morphine 4 mg ONCE STAT 03/14/19 DC 03/14/19 Sulfate IV 22:17 22:31 (morphine) 03/14/19 22:18 Ondansetron 4 mg ONCE STAT 03/14/19 DC 03/14/19 HCl (Zofran IV 22:17 22:31 Inj) 03/14/19 22:18 Sodium 100 ml @ ud STK-MED 03/14/19 DC Chloride ONCE .ROUTE 23:00 03/14/19 23:01 Iohexol 150 ml STK-MED 03/14/19 DC (Omnipaque ONCE .ROUTE 23:00 300mg/ ml) 03/14/19 23:01 Procedures/MDM EKG: Rate/Rhythm: [Normal Sinus Rhythm] QRS, ST, T-waves: [No changes consistent w/ acute ischemia] Impression: [No evidence of ischemia or arrhythmia] Chest X-ray 1V Interpreted by me: Soft Tissue: No acute abnormalities Bones: No acute abnormalities Mediastinum/Cardiac Silhouette/Lungs: [No acute abnormalities] CT angios chest abdomen pelvis was negative. Please see radiologist full dictation full report Medical decision making: Patient's musculoskeletal symptoms have stabilized while they have been evaluated in the department and are appropriate for outpatient work up. No evidence of cauda equina, cord compression, infiltrative, or infectious etiology. Departure Diagnosis: Primary Impression: Back pain Back pain location: back pain in unspecified location Chronicity: unspecified Back pain laterality: unspecified Qualified Codes: M54.9 - Dorsalgia, unspecified Condition: Stable Patient Instructions: Back Pain (Acute Or Chronic) BIBIANA CAIN Mar 15, 2019 00:59
[2019-03-15 01:00] VITALS: BP 132/76; PULSE 79; RESP 18
== END 2019-03-15 01:18 | disposition home or self-care (01) ==
LOC: E/R 21:54
DX: M54.5 Low back pain (principal); J44.9 Chronic obstructive pulmonary disease, unspecified; I10 Essential (primary) hypertension; Z79.01 Long term (current) use of anticoagulants
CPT/HCPCS: 36415; 71045; 71260; 74177; 80053; 81003; 83880; 84484; 85025; 85610; 85730; 93005; 96374; 96375; 99285; J2270; J2405; Q9967; Z7610